=== PATIENT | female | born 1975 | race Caucasian/White ===

== ENCOUNTER 2019-12-11 10:37 | Emergency (ER) | payer OTHER, SELFPAY ==
[2019-12-11] MEDS: TETANUS,DIPHTHERIA,AC PERTUSSIS ADULT 0.5 ML (ADACEL) IM (11:10)
[2019-12-11 11:13] VITALS: BP 118/75; PULSE 83; RESP 17; TEMP 36.6; O2SAT 97
--- NOTE | 2019-12-11 11:57 | ED.GENADULT ---
HPI - General Adult General Chief complaint: Wound/Laceration Stated complaint: Cut finger on meat cutter at work History of Present Illness HPI narrative: Karie presented to clinic with a laceration her 4th digit her left hand. She coded on a meat slice her at work just before coming in. She is concerned about healing because she is a diabetic. She sustained no other injuries other than the laceration Bleeding stopped with direct pressure. Related Data Home Medications Medication Instructions Recorded Confirmed atenolol 50 mg PO DAILY 09/20/19 09/20/19 atorvastatin 40 mg PO DAILY 09/20/19 09/20/19 diazepam 5 mg PO DAILY PRN 09/20/19 09/20/19 fenofibrate nanocrystallized 145 mg PO DAILY 09/20/19 09/20/19 gabapentin 300 mg PO BID 09/20/19 09/20/19 insulin glargine [Basaglar KwikPen 25 unit SUBCUT QAM 09/20/19 09/20/19 U-100 Insulin] insulin glargine [Basaglar KwikPen 55 unit SUBCUT HS 09/20/19 09/20/19 U-100 Insulin] insulin glulisine U-100 [Apidra 10 - 30 sliding scale dose SUBCUT 09/20/19 09/20/19 U-100 Insulin] [facility] losartan 100 mg PO DAILY 09/20/19 09/20/19 metformin 500 mg PO BID 09/20/19 09/20/19 triamterene-hydrochlorothiazid 1 tablet PO DAILY 09/20/19 09/20/19 Allergies Allergy/AdvReac Type Severity Reaction Status Date / Time tobramycin Allergy Unknown SWELLING Unverified 01/09/09 13:53 FROM EYE DROPS sulfamethoxazole Allergy Unknown Verified 09/20/19 18:27 [From Bactrim] trimethoprim [From Bactrim] Allergy Unknown Verified 09/20/19 18:27 Review of Systems Constitutional: Constitutional: Reports as per HPI Eyes: Eyes: Reports as per HPI Cardiovascular: Cardiovascular: Reports as per HPI Respiratory: Respiratory: Reports as per HPI Gastrointestinal: Gastrointestinal: Reports as per HPI Genitourinary: Genitourinary: Reports no additional female genitourinary complaints Musculoskeletal: Musculoskeletal: Reports no additional musculoskeletal complaints Integumentary/Breasts: Skin/Breast: Reports as per HPI Neurologic: Reports system reviewed and no additional complaints, except as documented Psychiatric: Psychiatric: Reports no additional psychiatric complaints Endocrine: Endocrine: Reports no additional endocrine complaints Hematologic/Lymphatic: Hematologic/Lymphatic: Reports no additional hematologic/lymphatic complaints Allergic/Immunologic: Allergic/Immunologic: Reports no additional allergic/immunologic complaints [facility] Past Medical History Medical History Diabetes mellitus Diabetic neuropathy associated with diabetes mellitus due to underlying condition Hypertension Exam Const: General: no acute distress and alert Orientation/consciousness: patient oriented x3 Limitations: No altered mental status HENMT: Other: Normocephalic, atraumatic Eyes: Conjunctivae: conjunctivae normal Pupils: Equal, round and reactive pupils present Neck: Neck: normal visual inspection Resp: Effort & Inspection: normal respiratory effort, not labored, no retractions and not tachypneic Cardio: Rate: regular rate Skin: General skin exam: normal color Wounds: wounds noted Other: 1 mm deep and 1 cm long laceration on the lateral side of the distal tip of her 4th digit of left hand Neuro: General: patient oriented x3 and moves all extremities Extrem: General: normal to inspection Psych: Mental Status: mental status grossly normal Course Course Emergency Course: Karie was seen and evaluated. Her wound was evaluated as above. she is given return precautions and discharged. Vital Signs Vital signs: Vital Signs Temperature 36.6 C 12/11/19 11:13 Pulse Rate 83 12/11/19 11:13 Respiratory Rate 17 12/11/19 11:13 Blood Pressure 118/75 12/11/19 11:13 Pulse Oximetry 97 12/11/19 11:13 Temperature 36.6 C 12/11/19 11:13 Pulse Rate 83 12/11/19 11:13 Respiratory Rate 17 12/11/19 11:13
[2019-12-11 12:03] VITALS: RESP 16
== END 2019-12-11 12:05 | disposition home or self-care (01) ==
PROVIDERS: Emergency Provider Family Medicine
DX: S61.215A Laceration without foreign body of left ring finger without damage to nail, initial encounter (principal); W45.8XXA Other foreign body or object entering through skin, initial encounter
CPT/HCPCS: 12001; 90471; 90715; 99282

== ENCOUNTER 2021-01-11 11:21 | Outpatient (CLI) | payer OTHER, SELFPAY ==
[2021-01-11 11:47] LABS: Basophils Absolute Auto 0.03 K/mm3 (0.00-0.10); Basophils Percent Auto 0.5 % (0.0-1.0); Eosinophils Absolute Auto 0.08 K/mm3 (0.02-0.50); Eosinophils Percent Auto 1.4 % (1.0-6.0); Hematocrit 42.8 % (35.0-49.0); Hemoglobin 13.7 g/dL (12.0-15.0); Immature Granulocyte Absolute 0.01 K/mm3 (0.00-0.00); Immature Granulocyte Percent A 0.2 % (0.0-0.0); Lymphocytes Absolute Auto 1.78 K/mm3 (1.10-4.50); Lymphocytes Percent Auto 31.7 % (18.0-42.0); Mean Corpuscular Hemoglobin 29.5 pg (27.0-31.0); Mean Corpuscular Volume 92.2 fL (78.0-102.0); Mean Platelet Volume 12.3 fl (9.2-11.8); Monocytes Absolute Auto 0.29 K/mm3 (0.10-0.90); Monocytes Percent Auto 5.2 % (2.0-11.0); Neutrophils Absolute Auto 3.4 K/mm3 (1.7-7.2); Platelet Count Result 187 K/mm3 (150-420); Red Blood Count 4.64 M/mm3 (4.20-5.40); Red Cell Distribution Width 12.8 % (11.6-14.4); White Blood Count 5.6 K/mm3 (4.8-10.8)
[2021-01-11 11:56] LABS: Hemoglobin A1C 9.6 % (<5.7)
[2021-01-11 12:29] LABS: Alanine Aminotransferase 97 U/L (14-59); Albumin Level 3.8 g/dL (3.4-5.0); Alkaline Phosphatase 73 U/L (46-116); Anion Gap 12 mmol/L (8-16); Aspartate Amino Transferase 63 U/L (15-37); Bilirubin,Total 0.5 mg/dL (0.00-1.00); Blood Urea Nitrogen 22 mg/dL (7-18); Calcium 9.2 mg/dL (8.5-10.1); Carbon Dioxide 23 mmol/L (21-32); Chloride 101 mmol/L (98-108); Cholesterol 99 mg/dL (0-200); Creatine Kinase 79 U/L (26-192); Estimated Glomerular Filt Rate 45; Glucose 189 mg/dL (70-99); HDL Direct 19 mg/dL (40-60); LDL Cholesterol Calculated 41 mg/dL (<130); Magnesium 1.3 mg/dL (1.8-2.4); Osmolality Calculated 290 mOsm/kg (285-295); Potassium 4.2 mmol/L (3.5-5.1); Sodium 136 mmol/L (136-145); Total Protein 7.3 g/dL (6.4-8.2); Triglycerides 195 mg/dL (0-150)
[2021-01-14 19:19] LABS: Vitamin D 25 Hydroxy 17 ng/mL (30-100)
== END 2021-01-11 11:22 | disposition home or self-care (01) ==
LOC: CHSLAB 11:32
DX: E11.8 Type 2 diabetes mellitus with unspecified complications (principal); Z79.4 Long term (current) use of insulin; R79.0 Abnormal level of blood mineral; E55.9 Vitamin D deficiency, unspecified; I10 Essential (primary) hypertension
CPT/HCPCS: 36415; 80053; 80061; 82306; 82550; 83036; 83735; 85025

== ENCOUNTER 2021-02-27 10:35 | Outpatient (CLI) | payer OTHER, SELFPAY ==
[2021-02-27 12:09] LABS: SARS-CoV-2 RNA PCR Negative (Negative)
== END 2021-02-27 10:36 | disposition home or self-care (01) ==
LOC: CHSLAB 10:40
DX: R05 Cough (principal)
CPT/HCPCS: C9803; U0003; U0005

== ENCOUNTER 2021-08-29 10:22 | Outpatient (CLI) | payer OTHER, SELFPAY ==
[2021-08-29 10:36] LABS: Basophils Absolute Auto 0.06 K/mm3 (0.00-0.10); Basophils Percent Auto 1.1 % (0.0-1.0); Eosinophils Absolute Auto 0.13 K/mm3 (0.02-0.50); Eosinophils Percent Auto 2.4 % (1.0-6.0); Hematocrit 41.8 % (35.0-49.0); Hemoglobin 13.8 g/dL (12.0-15.0); Immature Granulocyte Absolute 0.02 K/mm3 (0.00-0.00); Immature Granulocyte Percent A 0.4 % (0.0-0.0); Lymphocytes Absolute Auto 1.58 K/mm3 (1.10-4.50); Lymphocytes Percent Auto 29.4 % (18.0-42.0); Mean Corpuscular Hemoglobin 30.5 pg (27.0-31.0); Mean Corpuscular Volume 92.3 fL (78.0-102.0); Mean Platelet Volume 12.6 fl (9.2-11.8); Monocytes Absolute Auto 0.39 K/mm3 (0.10-0.90); Monocytes Percent Auto 7.2 % (2.0-11.0); Neutrophils Absolute Auto 3.2 K/mm3 (1.7-7.2); Neutrophils Percent Auto 59.5 % (50.0-70.0); Platelet Count Result 158 K/mm3 (150-420); Red Blood Count 4.53 M/mm3 (4.20-5.40); Red Cell Distribution Width 12.6 % (11.6-14.4); White Blood Count 5.4 K/mm3 (4.8-10.8)
[2021-08-29 11:01] LABS: Hemoglobin A1C 8.4 % (<5.7)
[2021-08-29 11:25] LABS: Alanine Aminotransferase 79 U/L (14-59); Albumin Level 3.6 g/dL (3.4-5.0); Alkaline Phosphatase 68 U/L (46-116); Anion Gap 12 mmol/L (8-16); Aspartate Amino Transferase 49 U/L (15-37); Bilirubin,Total 0.3 mg/dL (0.00-1.00); Blood Urea Nitrogen 23 mg/dL (7-18); Calcium 8.8 mg/dL (8.5-10.1); Carbon Dioxide 23 mmol/L (21-32); Chloride 104 mmol/L (98-108); Cholesterol 102 mg/dL (0-200); Estimated Glomerular Filt Rate 58; Glucose 183 mg/dL (70-99); HDL Direct 17 mg/dL (40-60); LDL Cholesterol Calculated 49 mg/dL (<130); Magnesium 1.5 mg/dL (1.8-2.4); Osmolality Calculated 296 mOsm/kg (285-295); Potassium 4.3 mmol/L (3.5-5.1); Sodium 139 mmol/L (136-145); Total Protein 6.9 g/dL (6.4-8.2); Triglycerides 182 mg/dL (0-150)
[2021-09-02 11:22] LABS: Vitamin D 25 Hydroxy 14 ng/mL (30-100)
== END 2021-08-29 10:23 | disposition home or self-care (01) ==
LOC: CHSLAB 10:25
PROVIDERS: PCP Physician Assistant; Visit Provider Physician Assistant
DX: E55.9 Vitamin D deficiency, unspecified (principal); R79.0 Abnormal level of blood mineral; E11.8 Type 2 diabetes mellitus with unspecified complications; Z79.4 Long term (current) use of insulin; E78.5 Hyperlipidemia, unspecified
CPT/HCPCS: 36415; 80053; 80061; 82306; 83036; 83735; 85025

== ENCOUNTER 2022-05-24 17:28 | Emergency (ER) | payer OTHER, SELFPAY ==
[2022-05-24 17:30] VITALS: PULSE 91; RESP 20; TEMP 36.4; O2SAT 94
--- NOTE | 2022-05-24 17:42 | ED.GENADULT ---
HPI - General Adult General Chief complaint: Ear Stated complaint: sinus inf/ear pain Time Seen by Provider: 05/24/22 17:37 History of Present Illness HPI narrative: Karie is a 47F with a PMH of DM, HTN and previous sinus infections that presented to the ED with a week and a half of frontal sinus pain, congestion, runny nose and pain in her right ear. There were no fevers, chills, N/V, cough or SOB. It feels like previous sinus infections. Related Data Home Medications Medication Instructions Recorded Confirmed atenolol 50 mg tablet 50 mg PO DAILY 09/20/19 05/24/22 atorvastatin 40 mg tablet 40 mg PO DAILY 09/20/19 05/24/22 diazepam 5 mg tablet 5 mg PO DAILY PRN Anxiety 09/20/19 05/24/22 fenofibrate nanocrystallized 145 145 mg PO DAILY 09/20/19 05/24/22 mg tablet gabapentin 300 mg capsule 300 mg PO BID 09/20/19 05/24/22 insulin glargine 100 unit/mL (3 35 unit subcut QAM 09/20/19 05/24/22 mL) subcutaneous pen (Basaglar KwikPen U-100 Insulin) insulin glargine 100 unit/mL (3 40 unit subcut HS 09/20/19 05/24/22 mL) subcutaneous pen (Basaglar KwikPen U-100 Insulin) insulin glulisine U-100 100 10 - 30 sliding scale dose subcut 09/20/19 05/24/22 unit/mL subcutaneous solution [facility] (Apidra U-100 Insulin) losartan 100 mg tablet 100 mg PO DAILY 09/20/19 05/24/22 triamterene 75 1 tablet PO DAILY 09/20/19 05/24/22 mg-hydrochlorothiazide 50 mg tablet Allergies Allergy/AdvReac Type Severity Reaction Status Date / Time tobramycin Allergy Unknown SWELLING Unverified 01/09/09 13:53 FROM EYE DROPS sulfamethoxazole Allergy Unknown Verified 09/20/19 18:27 [From Bactrim] trimethoprim [From Bactrim] Allergy Unknown Verified 09/20/19 18:27 Review of Systems Review of Systems: All systems reviewed & are unremarkable except as noted in HPI and below PMFSH Past Medical History Medical History Diabetes mellitus Diabetic neuropathy associated with diabetes mellitus due to underlying condition Hypertension Exam Const: General: healthy appearing and no acute distress Nutritional Appearance: well nourished Orientation/consciousness: patient oriented x3 HENMT: Head: normal to inspection Ears: external ears normal Other: Erythematous nasal turbinates, Right frontal sinus was TTP, Right submandibular lymphadenopathy Eyes: Conjunctivae: conjunctivae normal Pupils: Equal, round and reactive pupils present EOM: EOMs intact bilaterally Neck: Neck: normal visual inspection Chest: Chest palpation & inspection: normal inspection of the chest Resp: Effort & Inspection: normal respiratory effort Auscultation: clear to auscultation bilaterally Cardio: Rate: regular rate Rhythm: regular rhythm Skin: General skin exam: normal color Neuro: General: patient oriented x3 Extrem: General: normal to inspection Psych: Mental Status: mental status grossly normal Course Course Emergency Course: Given dose of Augmentin Vital Signs Vital signs: Vital Signs Temperature 97.6 F 05/24/22 17:30 Pulse Rate 91 05/24/22 17:30 Respiratory Rate 20 05/24/22 17:30 Pulse Oximetry 94 05/24/22 17:30 Oxygen Delivery Room Air 05/24/22 17:30 Temperature 97.6 F 05/24/22 17:52 Pulse Rate 91 05/24/22 17:52 Respiratory Rate 18 05/24/22 17:52 Blood Pressure 138/78 05/24/22 17:52 Pulse Oximetry 94 05/24/22 17:52 Oxygen Delivery Room Air 05/24/22 17:52 Medical Decision Making Vital Signs Vital Signs: Vital Signs Temperature 97.6 F 05/24/22 17:30 Pulse Rate 91 05/24/22 17:30 Respiratory Rate 20 05/24/22 17:30 Pulse Oximetry 94 05/24/22 17:30 Oxygen Delivery Room Air 05/24/22 17:30 Temperature 97.6 F 05/24/22 17:52 Pulse Rate 91 05/24/22 17:52 Respiratory Rate 18 05/24/22 17:52 Blood Pressure 138/78 05/24/22 17:52 Pulse Oximetry 94 05/24/22 17:52 Oxygen Delivery Room Air
[2022-05-24] MEDS: AMOXICILLIN/CLAVULANATE K 875-125 MG TAB 1 TABLET PO (17:50)
[2022-05-24 17:52] VITALS: BP 138/78; PULSE 91; RESP 18; TEMP 36.4; O2SAT 94
== END 2022-05-24 17:57 | disposition home or self-care (01) ==
PROVIDERS: Emergency Provider Family Medicine; PCP Physician Assistant
DX: J32.8 Other chronic sinusitis (principal)
CPT/HCPCS: 99283; A9270

== ENCOUNTER 2024-07-11 08:28 | Outpatient (RCR) | payer OTHER, SELFPAY ==
--- NOTE | 2024-07-11 16:10 | PTOPEVAL1 ---
Assessment and note entered by Codi Rivero DPT Evaluation Information Assessment Status Evaluation Diagnosis low back pain ICD-10 Condition Codes (PT) Pain in low back M54.50 Onset 07/06/24 Subjective Information patient reports that she has low back pain that comes and goes. she reports pain is on both side but does not radiate to the LE's. she reports pain is a burning. 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 she reports that heat helps to decrease pain. Reported Pain Level Pain Score 3: Self Report Plan of Care Interventions Electrical Stimulation,Gait Training,Hot Pack/Cold Pack,Manual Therapy,Mechanical Traction,Neuro Re- education,Patient/Caregiver Educati,Therapeutic Activities,Therapeutic Exercise PT Services Indicated Yes Treatment Frequency and 2x weekly for 10 visits Duration These treatments will address the objective and functional deficits as defined above. The patient will be advanced safely and appropriately in order for the patient to progress towards his/her prior level of function. Additional exercises will be introduced and as well as a comprehensive home exercise program upon discharge, if needed, ?to ensure carryover of functional gains achieved in the clinic. This treatment plan has been reviewed and agreement upon by the patient.
--- NOTE | 2024-07-25 08:39 | PCPTNOTE ---
Patient called & cancelled scheduled appointment this date.
--- NOTE | 2024-09-04 08:56 | PCPTNOTE ---
pt no show. called pt and she is in ER. On for Wednesday
== END 2024-08-16 11:00 | disposition home or self-care (01) ==
LOC: CHSPT 08:28
PROVIDERS: Visit Provider Physician Assistant
DX: M54.50 Low back pain, unspecified (principal)
CPT/HCPCS: 97014; 97110; 97161; G0283

== ENCOUNTER 2024-09-04 07:57 | Emergency (ER) | payer OTHER, SELFPAY ==
[2024-09-04 07:57] VITALS: BP 172/78; PULSE 84; RESP 16; TEMP 36.4; O2SAT 98
--- NOTE | 2024-09-04 08:08 | ED.EYEPROB ---
HPI - Eye Problem General Chief complaint: Eye Problems Stated complaint: Eye problem Time Seen by Provider: 09/04/24 08:07 Source: patient and family Mode of arrival: ambulatory History of Present Illness HPI Narrative: 49 years old white female came to the ED by private car this morning complaining of left eye irritation, feeling like some thing in it. patient denies any outdoors activity in the last few days. Related Data Home Medications Medication Instructions Recorded Confirmed atenolol 50 mg tablet 50 mg PO DAILY 09/20/19 05/24/22 atorvastatin 40 mg tablet 40 mg PO DAILY 09/20/19 05/24/22 diazepam 5 mg tablet 5 mg PO DAILY PRN Anxiety 09/20/19 05/24/22 fenofibrate nanocrystallized 145 145 mg PO DAILY 09/20/19 05/24/22 mg tablet gabapentin 300 mg capsule 300 mg PO BID 09/20/19 05/24/22 insulin glargine 100 unit/mL (3 35 unit subcut QAM 09/20/19 05/24/22 mL) subcutaneous pen (Basaglar KwikPen U-100 Insulin) insulin glargine 100 unit/mL (3 40 unit subcut HS 09/20/19 05/24/22 mL) subcutaneous pen (Basaglar KwikPen U-100 Insulin) insulin glulisine U-100 100 10 - 30 sliding scale dose subcut 09/20/19 05/24/22 unit/mL subcutaneous solution [facility] (Apidra U-100 Insulin) losartan 100 mg tablet 100 mg PO DAILY 09/20/19 05/24/22 triamterene 75 1 tablet PO DAILY 09/20/19 05/24/22 mg-hydrochlorothiazide 50 mg tablet Allergies Allergy/AdvReac Type Severity Reaction Status Date / Time tobramycin Allergy Unknown SWELLING Unverified 01/09/09 13:53 FROM EYE DROPS sulfamethoxazole Allergy Unknown Verified 09/20/19 18:27 [From Bactrim] trimethoprim [From Bactrim] Allergy Unknown Verified 09/20/19 18:27 Review of Systems Review of Systems: All systems reviewed & are unremarkable except as noted in HPI and below PMFSH Past Medical History Medical History Diabetes mellitus Diabetic neuropathy associated with diabetes mellitus due to underlying condition Hypertension Exam Narrative: General appearance: Well-developed, well-nourished Skin: Normal color Head: Normocephalic, nontraumatic Eyes: Left conjunctival injection, no foreign body, no swelling, no discharge ENT: Oropharynx normal, ears normal, nose normal Neck: Supple, nontender Neurologic: Alert and oriented ?3, Course Vital Signs Vital signs: Vital Signs Temperature 36.4 C L 09/04/24 07:57 Pulse Rate 84 09/04/24 07:57 Respiratory Rate 16 09/04/24 07:57 Blood Pressure 172/78 H 09/04/24 07:57 Pulse Oximetry 98 09/04/24 07:57 Oxygen Delivery Room Air 09/04/24 07:57 Temperature 36.4 C L 09/04/24 07:57 Pulse Rate 84 09/04/24 07:57 Respiratory Rate 16 09/04/24 07:57 Blood Pressure 172/78 H 09/04/24 07:57 Pulse Oximetry 98 09/04/24 07:57 Oxygen Delivery Room Air 09/04/24 07:57 MDM - Eye Problem MDM Narrative Medical decision making narrative: differential diagnosis include conjunctivitis viral versus bacterial Differential Diagnosis Differential diagnosis: Likely other ( as above) Discharge Plan Discharge Clinical Impression: Conjunctiva disorder Patient Disposition: Home, Self-Care Condition: Stable Instructions: Conjunctivitis (ED) Additional Instructions: Return if symptoms are worsening , call your family physician for appointment, take Tylenol as as needed for aches and pain, continue home medications. Prescriptions: New ciprofloxacin HCl 0.3 % drops 1 drp LEFT EYE Q4H 5 Days Qty: 10 0RF Rx Instructions: administer while awake No Action atorvastatin 40 mg tablet 40 mg PO DAILY gabapentin 300 mg capsule 300 mg PO BID triamterene-hydrochlorothiazid 75-50 mg tablet 1 tablet PO DAILY losartan 100 mg tablet 100 mg PO DAILY atenolol 50 mg tablet 50 mg PO DAILY diazepam 5 mg tablet 5 mg PO DAILY PRN (Reason: Anxiety) Apidra U-100 Insulin 100 unit/mL solution 10 - 30 sliding scale dose subcut [facility] fenofibrate nanocrystallized 145 mg tablet 145 mg PO DAILY insulin glargine [Basaglar KwikPen U-100 Insulin] 100 unit/mL (3 mL) insulin pen 35 unit SUBCUT QAM insulin glargine [Basaglar KwikPen U-100 Insulin] 100 unit/mL (3 mL) insulin pen 40 unit SUBCUT HS amoxicillin-pot clavulanate 875-125 mg tablet 1 tablet PO Q12H Qty: 10 0RF Follow-up/Referrals: Getachew,CARMEL Arreguin [Primary Care Provider] - Stand Alone Forms: Work/School Release IP
[2024-09-04] MEDS: TETRACAINE HCL 0.5% OPHTH SOLN 4 ML BTL 1 DROP EACH EYE (08:25)
== END 2024-09-04 09:02 | disposition home or self-care (01) ==
PROVIDERS: Emergency Provider Emergency Medicine; PCP Physician Assistant
DX: H11.9 Unspecified disorder of conjunctiva (principal); I10 Essential (primary) hypertension; E11.9 Type 2 diabetes mellitus without complications
CPT/HCPCS: 99283

== ENCOUNTER 2025-04-27 12:36 | Outpatient (CLI) | payer OTHER, SELFPAY ==
--- OUTSIDE RECORDS SUMMARY | 2025-04-27 12:45 | XMS_ITS | Encounter Summary ---
Author Organization [facility] Address [address] [place] [address] Phone Care Team Providers Care Plaster Tender Name Role Phone Kendra Chilel Primary Care Provider + Reason for Visit * Reason Comments Medication Refill Encounter Details Date Type Department Care Team (Late st Contact Info) Description 03/07/2024 Refill [facility] Medical Group - [facility] [place] [address] [place] [address] Kendra Chilel PAC [address] [place] [address] Medication Refill Social History Tobacco Use Types Packs/Day Years Used Date Smoking Tobacco: Every Day Cigarettes 1 5 Smokeless Tobacco: Never Alcohol Use Standard Drinks/Week Comments Never 0 (1 standard drink = 0.6 oz pur e alcohol) 2 X a year AUDIT-C Answer Date Recorded Q1: How often do you have a drink containing alc ohol? Never 07/06/2020 Average Number of Drinks Not on file 020 Frequency of Binge Drinking Not on file 06/27 PHQ-2 Answer Date Recorded Total Score - Questions 1-9 0 12/2021 Education Answer Date Recorded What is the highest level of school you have completed or the highest degree you have received? Associate degree: occupational, technical, or vocational program 10/23/2022 Sexually Active Control Partners Comments Yes Male Comments No Sex and Gender Information Value Date Recorded Sex Assigned at Not on file Legal Sex Female 10:41 PM CDT Gender Identity Female 07/28/2023 10:16 AM CDT Sexual Orientation Straight 07/28/2023 10 :16 AM CDT documented as of this encounter Miscellaneous Notes * Telephone Encounter - Elana Macedo RN - 03/07/2024 9:00 AM CDT Medication failed the protocol, provider to review and approve the medication order if appropriate. Requested Prescriptions Pending Prescriptions Disp Refills Lantus SoloStar 100 UNIT/ML Solution Pen-injector [Pharmacy Med Name: LANTUS SOLOSTAR 100 UNITS/ML]15 mL 3 Sig: INJECT 25 UNITS SUBCUTANEOUSLY EVERY MORNING AND 50-55 UNITS NIGTLY CHECK BLOOD SUGAR PRIOR TOINJECTION Not Delegated - Insulin Protocol Failed - 03/07/2024 8:25 AM Failed - This refill cannot be delegated Passed - Visit with relevant provider in past 12 months or upcoming 90 days Recent Visits Date Type Provider Dept 02/14/24 Office Visit Kendra Chilel PAC [facility] 08/26/23 Office Visit Kendra Chilel PAC [facility] 08/06/23 Telemedicine Kendra Chilel PAC [facility] Showing recent visits within past 365 days and meeting all other requirements Future Appointments No visits were found meeting these conditions. Showing future appointments within next 90 days and meeting all other requirements documented in this encounter Plan of Treatment Not on file documented as of this encounter Visit Diagnoses Not on filedocumented in this encounter Additional Health Concerns Assessment Noted Time PHQ-9 Depression Total Score: 0 01/09/20 21 3:47 PM CDT documented as of this encounter Care Teams Plaster Tender Relationship Specialty Start Date End Date Kendra Chilel PAC [address] [place] [address] PCP - General Physician Steel Chipper 08/25/17 documented as of this encounter
--- OUTSIDE RECORDS SUMMARY | 2025-04-27 12:45 | XMS_ITS | Encounter Summary ---
Author Organization [facility] Address [address] [place] [address] Phone Care Team Providers Care Edge Drummer Name Role Phone Kendra Chilel Primary Care Provider + Reason for Visit * Reason Comments Medication Refill Encounter Details Date Type Department Care Team (Late st Contact Info) Description 05/24/2021 Refill [facility] - [facility] [place] [address] [place] [address] Kendra Chilel PAC [address] [place] [address] Medication Refill Social History Tobacco Use Types [...] Recorded Total Score - Questions 1-9 0 12/26 Education Answer Date Recorded What is the highest level of school you have completed or the highest degree you have received? GED or equivalent Sexually Active Control Partners Comments Yes Male Comments No Sex and Gender Information Value Date Recorded Sex Assigned at Not on file Legal Sex Female 10:41 PM CDT Gender Identity Female 07/28/2023 10:16 AM CDT Sexual Orientation Straight 07/28/2023 10 :16 AM CDT COVID-19 Exposure Response Date Recorded In the last month, have you been in contact with someone who was confirmed or suspected to have Coronavirus / COVID-19? No / Unsure 05/19/2021 2:25 PM CDT documented as of this encounter Miscellaneous Notes * Telephone Encounter - Elana Macedo RN - 05/26/2021 2:49 PM CDT [place] 04/25/21 Medication failed the protocol, provider to review and approve the medication order if appropriate. Requested Prescriptions Pending Prescriptions Disp Refills diazePAM (VALIUM) 5 MG Tablet [Pharmacy Med Name: DIAZEPAM 5 MG TABLET] 45 Tablet Sig: TAKE ONE TABLET BY MOUTH EVERY EIGHT HOURS NEEDED There is no refill protocol information for this order tiZANidine (ZANAFLEX) 4 MG Tablet [Pharmacy Med Name: TIZANIDINE HCL 4 MG TABLET] 60 Tablet 0 Sig: TAKE ONE TABLET BY MOUTH EVERY EIGHT HOURS NEEDED Not Delegated - Muscle Relaxants Protocol Failed - 05/26/2021 2:49 PM Failed - This refill cannot be delegated Passed - Visit with relevant provider in past 12 months or upcoming 90 days Recent Visits Date Type Provider Dept 05/20/21 Kendra Vernon PAC [facility] 03/04/21 Telemedicine Kendra Chilel PAC [facility] 01/29/21 Office Visit Kendra Chilel PAC [facility] 01/15/21 Office Visit Kendra Chilel PAC [facility] 01/08/21 Office Visit Kendra Chilel PAC [facility] 10/28/20 Telemedicine Kendra Chilel PAC [facility] 08/01/20 Office Visit Kendra Chilel PAC [facility] 07/15/20 Office Visit Kendra Chilel, PAC [facility] Showing recent visits within past 365 days and meeting all other requirements Future Appointments No visits were found meeting these conditions. Showing future appointments within next 90 days and meeting all other requirements Passed - ALT less than 90 and AST less than 55 on record in past 12 months SGOT (AST) Date Value Ref Range Status 01/29/2021 42 (H) <=32 U/L Final SGPT (ALT) Date Value Ref Range Status 01/29/2021 59 (H) <=41 U/L Final documented in this encounter Plan of Treatment Not on file documented as of this encounter Visit Diagnoses Diagnosis Anxiety Anxiety state, unspecified documented in this encounter Additional Health Concerns Infection Onset Date Last Indicated Resolved Time COVID - 19 09/30/2021 09/30/2021 10/20/2021 12:1 6 AM BELLMAN Assessment Noted Time PHQ-9 Depression Total Score: 0 01/09/20 21 3:47 PM CDT documented as of this encounter Care Teams Edge Drummer Relationship Specialty Start Date End Date Kendra Chilel PAC [address] [place] [address] PCP - General Physician Trucker Hand 08/25/17 documented as of this encounter
--- OUTSIDE RECORDS SUMMARY | 2025-04-27 12:45 | XMS_ITS | Encounter Summary ---
Author Organization [facility] Address [address] [place] [address] Phone Care Team Providers Care Nurse Emergency Name Role Phone Kendra Chilel Primary Care Provider + Reason for Visit * Reason Comments Medication Refill Encounter Details Date Type Department Care Team ([facility] Contact Info) Description 12/13/2024 Refill [facility] [place] [address] [place] [address] Kendra Chilel PAC [address] [place] [address] Medication Refill Social History Tobacco Use Types Packs/Day Years Used Date Smoking Tobacco: Every Day Cigarettes 1 5 Smokeless Tobacco: Never Alcohol Use Standard Drinks/Week Comments Never 0 (1 standard drink = 0.6 oz pur e alcohol) 2 X a year [facility] Utilities Answer Date Recorded In the past 12 months has [employer], gas, oil, or water [employer] threatened to shut off services in your home? No 12/12/2024 Social Connection and Isolation Panel Answer Date Recorded In a typical week, how many times do you talk on the phone with family, friends, or neighbors? Patient declined 12/13/19 25 How often do you get togethe r with friends or relatives? Never 12/12/2024 How often do you attend [facility] or yazidi services? Never 12/12/2024 Do you belong to any clubs o r organizations such as yazdanism groups, unions, fraternal or athletic groups, or school groups? No 12/12/2024 How often do you attend meet ings of the clubs or organizations you belong to? Never 12/12/2024 Are you , , di vorced, , never , or living with a partner? Living with partner 12/12/2024 AUDIT-C Answer Date Recorded Q1: How often do you have a drink containing alcohol? Never 12/12/2024 Q2: How many drinks containi ng alcohol do you have on a typical day when you are drinking? Patient does not drink Q3: How often do you have si x or more drinks on one occasion? Never 12/12/2024 Overall Financial Resource Strain (CARDIA) Answe r Date Recorded How hard is it for you to pa y for the very basics like food, housing, medical care, and heating? Not hard at all 12/12/2024 PHQ-2 Answer Date Recorded Total Score - Questions 1-9 0 11/26 [facility] - Occupational Stress Questionnaire Answer Date Recorded Do you feel stress - tense, restless, nervous, or anxious, or unable to sleep at night because your mind is troubled all the time - these days? Rather much 12/12/2024 Exercise Vital Sign Answer Date Recorde d On average, how many days pe r week do you engage in moderate to strenuous exercise (like a brisk walk)? 0 days 12/12/2024 On average, how many minutes do you engage in exercise at this level? 0 min 12/12/2024 Hunger Vital Sign Answer Date Recorded Within the past 12 months, y ou worried that your food would run out before you got the money to buy more. Never true 12/13/19 25 Within the past 12 months, t he food you bought just didn't last and you didn't have money to get more. Never true 12/12/2024 PRAPARE - Transportation Answer Date Re corded In the past 12 months, has l ack of transportation kept you from medical appointments or from getting medications? No 11/25 In the past 12 months, has l ack of transportation kept you from meetings, work, or from getting things needed for daily living? No 12/12/2024 Housing Stability Vital Sign Answer Mendoza e Recorded In the last 12 months, was t here a time when you were not able to pay the mortgage or rent on time? No 12/12/2024 In the past 12 months, how m any times have you moved where you were living? 1 12/12/2024 At any time in the past 12 m [facility], were you homeless or living in a jail (including now)? No 12/12/2024 Education Answer Date Recorded What is the [...] AM CDT documented as of this encounter Functional Status * Question Answer Date of Assessment Author Little interest or pleasure in doing things Not at all 12/14/2024 10:22 AM CDT Faraz December Feeling down, depressed, or hopeless Not at all 11/26 10:22 AM CDT FarazDecember * Over the past 2 weeks, how often have you been bothered by any of the following problems? Question Answer Date of Assessment Author Patient Health Questionnaire-2 Score 0 11/26 10:22 AM CDT December documented as of this encounter Miscellaneous Notes * Telephone Encounter - Elana Macedo RN - 12/14/2024 11:39 AM CDT Images from the original note were not included. Semaglutide Dispensed Days Supply Quantity Provider Pharmacy RYBELSUS 7MG TAB 12/13/2024 30 30 Tablet Fritcher, Jana, PAC [facility] RYBELSUS 7MG TAB 11/15/2024 30 30 Tablet Fritcher, Jana, PAC [facility] RYBELSUS 7MG TAB 10/13/2024 30 30 Tablet Fritcher, Jana, PAC [facility] * Telephone Encounter - Elana Macedo RN - 12/13/2024 3:[address]pt 12/14/24 with PCP documented in this encounter Plan of Treatment Not on file documented as of this encounter Visit Diagnoses Diagnosis Type 2 diabetes mellitus with complication, with long-term current use of insulin (HCC) documented in this encounter Additional Health Concerns Assessment Noted Time PHQ-9 Depression Total Score: 0 01/09/20 21 3:47 PM CDT documented as of this encounter Care Teams Nurse Emergency Relationship Specialty Start Date End Date Kendra Chilel PAC [address] [place] [address] PCP - General Physician Underwriter 08/25/17 documented as of this encounter
--- OUTSIDE RECORDS SUMMARY | 2025-04-27 12:45 | XMS_ITS | Encounter Summary ---
Author Organization [facility] Address [address] [place] [address] Phone Care Team Providers Care Neck Band Setter Name Role Phone Kendra Chilel Primary Care Provider + Reason for Visit * Reason Comments Medication Refill Encounter Details Date Type Department Care Team (Late st Contact Info) Description 05/25/2020 Refill [facility] Medical Group - Family [facility] [address] [place] [address] Kendra Chilel PAC [address] [place] [address] Medication Refill Social History Tobacco Use Types Packs/Day Years Used Date Smoking Tobacco: Every Day Cigarettes 1 5 Smokeless Tobacco: Never Alcohol Use Standard Drinks/Week Comments No 0 (1 standard drink = 0.6 oz pur e alcohol) 2 X a year PHQ-2 Answer Date Recorded PHQ-2 Score 0 06/06/2019 Sexually Active Control Partners Comments Yes Male Comments No Sex and Gender Information Value Date Recorded Sex Assigned at Not on file Legal Sex Female 10:41 PM CDT Gender Identity Female 07/28/2023 10:16 AM CDT Sexual Orientation Straight 07/28/2023 10 :16 AM CDT documented as of this encounter Miscellaneous Notes * Telephone Encounter - Radha Gupta RN - 05/29/2020 10:08 AM CDT DUPLICATE Pharmacy advised documented in this encounter Plan of Treatment Not on file documented as of this encounter Visit Diagnoses Not on filedocumented in this encounter Additional Health Concerns Infection Onset Date Last Indicated Resolved Time COVID - 19 07/06/2020 07/06/2020 07/08/2020 11:2 3 AM CDT COVID - 19 10/29/2020 10/29/2020 11/01/2020 8:13 AM SITE SAFETY COORDINATOR COVID - 19 01/08/2021 01/09/2021 01/11/2021 5:59 AM CDT COVID - 19 02/25/2021 02/28/2021 03/17/2021 12:1 6 AM CDT COVID - 19 09/30/2021 09/30/2021 10/20/2021 12:1 6 AM SITE SAFETY COORDINATOR Assessment Noted Time PHQ-9 Depression Total Score: 0 11/14/19 19 11:16 AM SITE SAFETY COORDINATOR documented as of this encounter Care Teams Neck Band Setter Relationship Specialty Start Date End Date Kendra Chilel PAC [address] [place] [address] PCP - General Physician Body Die Maker 08/25/17 documented as of this encounter
--- OUTSIDE RECORDS SUMMARY | 2025-04-27 12:45 | XMS_ITS | Encounter Summary ---
Author Organization [facility] Address [address] [place] [address] Phone Care Team Providers Care Blind Teacher Name Role Phone Kendra Chilel Primary Care Provider + Reason for Visit * Reason Comments Medication Refill Encounter Details Date Type Department Care Team (Late st Contact Info) Description 05/08/2023 [facility]ill [facility] - [facility] [place] [address] [place] [address] Kendra Chilel PAC [address] [place] [address] Medication Refill Social History Tobacco Use Types [...] encounter Miscellaneous Notes * Telephone Encounter - Mona Morrison RN - 05/11/2023 3:33 PM CDT Sent to pharmacy 05/11/23 * Telephone Encounter - Barbie Meade RN - 05/11/2023 7:45 AM CDT Patient is calling and states she is out of insulin and needs the medication today. She is out of medication and the pharmacy states that she has no refills. She has been without medication all weekend. Denies symptoms at this time Please advise * Telephone Encounter - Elana Macedo RN - 05/10/2023 8:49 AM CDT Images from the original note were not included. Insulin Glargine Dispensed Days Supply Quantity Provider Pharmacy LANTUS SOLO 100U/ML PEN 04/12/2023 18 15 mL Kendra Chilel, PAC [facility] LANTUS SOLO 100U/ML PEN 03/15/2023 18 15 mL Kendra Chilel, PAC [facility] documented in this encounter Plan of Treatment Not on file documented as of this encounter Visit Diagnoses Not on filedocumented in this encounter Additional Health Concerns Assessment Noted Time PHQ-9 Depression Total Score: 0 01/09/20 21 3:47 PM CDT documented as of this encounter Care Teams Blind Teacher Relationship Specialty Start Date End Date Kendra Chilel PAC [address] [place] [address] PCP - General Physician Teacher Music 08/25/17 documented as of this encounter
--- OUTSIDE RECORDS SUMMARY | 2025-04-27 12:45 | XMS_ITS | Encounter Summary ---
Author Organization [facility] Address [address] [place] [address] Phone Care Team Providers Care Clearing Distribution Clerk Name Role Phone Kendra Chilel Primary Care Provider + Reason for Visit * Reason Comments Medication Refill Encounter Details Date Type Department Care Team (Late st Contact Info) Description 01/10/2024 Refill [facility] - [facility] [place] [address] [place] [address] Kendra Chilel PAC [address] [place] [address] Medication Refill Social History Tobacco Use Types [...] Telephone Encounter - Elana Macedo RN - 01/10/2024 3:53 PM CDT Images from the original note were not included. Losartan Potassium Dispensed Days Supply Quantity Provider Pharmacy LOSARTAN 100MG TAB 01/10/2024 90 90 Tablet Kendra Chilel PAC [facility] LOSARTAN 100MG TAB 10/12/2023 90 90 Tablet Kendra Chilel [facility] documented in this encounter Plan of Treatment Not on file documented as of this encounter Visit Diagnoses Not on filedocumented in this encounter Additional Health Concerns Assessment Noted Time PHQ-9 Depression Total Score: 0 01/09/20 21 3:47 PM CDT documented as of this encounter Care Teams Clearing Distribution Clerk Relationship Specialty Start Date End Date Kendra Chilel PAC [address] [place] [address] PCP - General Physician Metal Cut Off Saw Tender 08/25/17 documented as of this encounter
--- OUTSIDE RECORDS SUMMARY | 2025-04-27 12:45 | XMS_ITS | Encounter Summary ---
Author Organization [facility] Address [address] [place] [address] Phone Care Team Providers Care Geochemical Laboratory Technician Name Role Phone Kendra Chilel Primary Care Provider + Reason for Visit * Reason Comments Medication Refill Encounter Details Date Type Department Care Team ([facility] st Contact Info) Description 08/15/2023 Refill [facility] Medical Group - [facility] [address] [place] [address] Kendra Chilel PAC [address] [place] [address] Medication Refill Social History Tobacco Use Types [...] Exposure Response Date Recorded In the last 10 days, have staci u been in contact with someone who was confirmed or suspected to have Coronavirus/COVID-19? No / Unsure 08/02/2023 2:44 PM ASSISTANT PROFESSOR OF ART documented as of this encounter Miscellaneous Notes * Telephone Encounter - Elana Macedo RN - 08/16/2023 9:42 AM CST Refill remaining on file according to last Rx and refill history. STANT PROFESSOR OF ART * Telephone Encounter - Elana Macedo RN - 08/16/2023 9:40 AM CST Images from the original note were not included. tiZANidine HCl Dispensed Days Supply Quantity Provider Pharmacy TIZANIDINE 4MG TAB 08/15/2023 15 60 Tablet Kendra Chilel PAC [facility] TIZANIDINE 4MG TAB 07/13/2023 15 60 Tablet Kendra Chilel PAC [facility] STANT PROFESSOR OF ART documented in this encounter Plan of Treatment Not on file documented as of this encounter Visit Diagnoses Not on filedocumented in this encounter Additional Health Concerns Assessment Noted Time PHQ-9 Depression Total Score: 0 01/09/20 21 3:47 PM CDT documented as of this encounter Care Teams Geochemical Laboratory Technician Relationship Specialty Start Date End Date Kendra Chilel PAC [address] [place] [address] PCP - General Physician Travel Administrator 08/25/17 documented as of this encounter
--- OUTSIDE RECORDS SUMMARY | 2025-04-27 12:45 | XMS_ITS | Encounter Summary ---
Author Organization [facility] Address [address] [place] [address] Phone Care Team Providers Care Child Care Leader Name Role Phone Kendra Chilel Primary Care Provider + Reason for Visit * Reason Comments Medication Refill Encounter Details Date Type Department Care Team ([facility] st Contact Info) Description 10/17/2022 Refill [facility] Medical Group - [facility] [address] [place] [address] Kendra Chilel PAC [address] [place] [address] Medication Refill Social History Tobacco Use Types [...] degree you have received? GED or equivalent 09/2021 Sexually Active Control Partners Comments Yes Male Comments No Sex and Gender Information Value Date Recorded Sex Assigned at Not on file Legal Sex Female 10:41 PM CDT Gender Identity Female 07/28/2023 10:16 AM CDT Sexual Orientation Straight 07/28/2023 10 :16 AM CDT documented as of this encounter Miscellaneous Notes * Telephone Encounter - Elana Macedo RN - 10/19/2022 9:05 AM CST Signed 4 days ago (10/15/2022): diazePAM (VALIUM) 5 MG Tablet Sig: Take 1 Tablet by mouth every 8 hours as needed for Anxiety. Disp: 45 Tablet ? Refills: 0 Signed by: Kendra Chilel [facility] documented in this encounter Plan of Treatment Not on file documented as of this encounter Visit Diagnoses Diagnosis Anxiety Anxiety state, unspecified documented in this encounter Additional Health Concerns Assessment Noted Time PHQ-9 Depression Total Score: 0 01/09/20 21 3:47 PM CDT documented as of this encounter Care Teams Child Care Leader Relationship Specialty Start Date End Date Kendra Chilel PAC [address] [place] [address] PCP - General Physician Back Wedger 08/25/17 documented as of this encounter
--- OUTSIDE RECORDS SUMMARY | 2025-04-27 12:45 | XMS_ITS | Encounter Summary ---
Author Organization [facility] Address [address] [place] [address] Phone Care Team Providers Care Plant Etiologist Name Role Phone Kendra Chilel Primary Care Provider + Reason for Visit * Reason Comments Medication Refill Encounter Details Date Type Department Care Team (Late st Contact Info) Description 01/13/2023 Refill [facility] Medical Group - [facility] [place] [address] [place] [address] Kendra Chilel PAC [address] [place] [address] Medication Refill Social History Tobacco Use Types [...] encounter Miscellaneous Notes * Telephone Encounter - Tiffanie Monroe RN - 01/13/2023 10:59 AM CDT Refill requested too soon. documented in this encounter Plan of Treatment Not on file documented as of this encounter Visit Diagnoses Not on filedocumented in this encounter Additional Health Concerns Assessment Noted Time PHQ-9 Depression Total Score: 0 01/09/20 21 3:47 PM CDT documented as of this encounter Care Teams Plant Etiologist Relationship Specialty Start Date End Date Kendra Chilel PAC [address] [place] [address] PCP - General Physician Communications Senior Associate 08/25/17 documented as of this encounter
--- OUTSIDE RECORDS SUMMARY | 2025-04-27 12:45 | XMS_ITS | Encounter Summary ---
Author Organization [facility] Address [address] [place] [address] Phone Care Team Providers Care Forming Mill Operator Name Role Phone Kendra Chilel Primary Care Provider + Reason for Visit * Reason Onset Date Comments Medication Refill 07/24/2020 atenolol & rajwinder zepam Encounter Details Date Type Department Care Team (Late st Contact Info) Description 07/16/2020 Refill [facility] Medical Group - Family [facility] [address] [place] [address] Kendra Chilel PAC [address] [place] [address] Medication Refill (atenolol & diazepam) Social History Tobacco Use Types Packs/Day Years [...] on file 06/27 PHQ-2 Answer Date Recorded PHQ-2 Score 0 06/06/2019 Education Answer Date Recorded What is the [...] have Coronavirus / COVID-19? No / Unsure 07/15/2020 10:34 AM CDT documented as of this encounter Miscellaneous Notes * Telephone Encounter - Kendra Chilel PAC - 07/24/2020 8:52 AM CDT The diazepam was refilled 1 week ago * Telephone Encounter - Inna Hui RN - 07/24/2020 8:38 AM CDT FYI: Refused request for atenolol d/t requesting too soon. According to chart this medication was ordered at this same pharmacy requesting renewal for: atenolol (TENORMIN) 50 MG Tablet 90 Tab 3 03/14/2020 Sig: TAKE ONE TABLET BY MOUTH DAILY Diazepam: Routing to provider per protocol as medication(s) can not be signed by a nurse for approval. Rx post dated. Medication Dispense History (from 03/26/2020 to 07/23/2020) diazePAM Dispensed Written Strength Quantity Refills Days Supply Provider Pharmacy DIAZEPAM 07/12/2020 07/12/2020 5 MG 45 0 15 , [facility] DIAZEPAM 06/20/2020 06/20/2020 5 MG 45 0 15 , [facility] DIAZEPAM 05/17/2020 05/17/2020 5 MG 45 0 15 , MIRANDA WALTON (DNP, GAS BRAZER-C) [facility] DIAZEPAM 04/12/2020 04/12/2020 5 MG 45 0 15 , [facility] External Sources Source Last Checked for Updates Status [facility] 07/23/2020 1:10 PM History Response Filed documented in this encounter Plan of Treatment Not on file documented as of this encounter Visit Diagnoses Diagnosis Anxiety Anxiety state, unspecified documented in this encounter Additional Health Concerns Infection Onset Date Last Indicated Resolved Time COVID - 19 10/29/2020 10/29/2020 11/01/2020 8:13 AM POLYSOMNOGRAPHIC TECH COVID - 19 01/08/2021 01/09/2021 01/11/2021 5:59 AM CDT COVID - 19 02/25/2021 02/28/2021 03/17/2021 12:1 6 AM CDT COVID - 19 09/30/2021 09/30/2021 10/20/2021 12:1 6 AM POLYSOMNOGRAPHIC TECH Assessment Noted Time PHQ-9 Depression Total Score: 0 11/14/19 19 11:16 AM POLYSOMNOGRAPHIC TECH documented as of this encounter Care Teams Forming Mill Operator Relationship Specialty Start Date End Date Kendra Chilel PAC [address] [place] [address] PCP - General Physician Breaker Operator 08/25/17 documented as of this encounter
--- OUTSIDE RECORDS SUMMARY | 2025-04-27 12:45 | XMS_ITS | Encounter Summary ---
Author Organization [facility] Address [address] [place] [address] Phone Care Team Providers Care Cracking And Fanning Machine Operator Name Role Phone Kendra Chilel Primary Care Provider + Reason for Visit * Reason Onset Date Comments Medication Refill 04/24/2025 Encounter Details Date Type Department Care Team (Late st Contact Info) Description 04/24/2025 Refill [facility] Medical [facility] - [facility] [address] [place] [address] Kendra Chilel PAC [address] [place] [address] Medication Refill Social History Tobacco Use Types Packs/Day Years Used Date Smoking Tobacco: Every Day Cigarettes 1 5 Smokeless Tobacco: Never Alcohol Use Standard Drinks/Week Comments Never 0 (1 standard drink = 0.6 oz pur e alcohol) 2 X a year [facility] Utilities Answer Date Recorded In the past 12 months has [employer] electric, gas, oil, or water company threatened to shut off services in your home? No 12/12/2024 Social Connection and Isolation Panel Answer Date Recorded In a typical week, how many times do you talk on the phone with family, friends, or neighbors? Patient declined 12/13/19 25 How often do you get togethe r with friends or relatives? Never 12/12/2024 How often do you attend [facility] or [facility] services? Never 12/12/2024 Do you belong to any clubs o r organizations such as taoism groups, unions, fraternal or athletic groups, or [...] Total Score - Questions 1-9 0 11/26 [facility] - Occupational [...] any time in the past 12 [facility], were you homeless or living in a [facility] (including now)? No 12/12/2024 Education Answer Date [...] Telephone Encounter - Elana Macedo RN - 04/25/2025 8:29 AM CDT Medication failed the protocol, provider to review and approve the medication order if appropriate. Requested Prescriptions Pending Prescriptions Disp Refills insulin lispro (HumaLOG) 100 UNIT/ML Solution 30 mL 1 Si Units by Subcutaneous route 3 times daily (before meals). Use as directed Not Delegated - Insulin Protocol Failed - 04/25/2025 8:29 AM Failed - This refill cannot be delegated Passed - Visit with relevant provider in past 12 months or upcoming 90 days Recent Visits Date Type Provider Dept 12/14/24 Office Visit Kendra Chilel PAC [facility] 06/16/24 Office Visit Kendra Chilel PAC [facility] Showing recent visits within past 365 days and meeting all other requirements Future Appointments No visits were found meeting these conditions. Showing future appointments within next 90 days and meeting all other requirements * Telephone Encounter - Karla May MA - 04/24/2025 1:23 PM CDT Patient stated she takes Humalog 100 unit/ml solution unless pcp switched her to something else andwas not told Humalog was discontinued. documented in this encounter Plan of Treatment Not on file documented as of this encounter Visit Diagnoses Diagnosis Type 2 diabetes mellitus with complication, with long-term current use of insulin (HCC) documented in this encounter Additional Health Concerns Assessment Noted Time PHQ-9 Depression Total Score: 0 12/15/19 25 10:22 AM CDT documented as of this encounter Care Teams Cracking And Fanning Machine Operator Relationship Specialty Start Date End Date Kendra Chilel PAC [address] [place] [address] PCP - General Physician Flare Maker 08/25/17 documented as of this encounter
--- OUTSIDE RECORDS SUMMARY | 2025-04-27 12:45 | XMS_ITS | Encounter Summary ---
Author Organization [facility] Address [address] [place] [address] Phone Care Team Providers Care All Around Presser Name Role Phone Kendra Chilel Primary Care Provider + Reason for Visit * Reason Comments Medication Refill Encounter Details Date Type Department Care Team (Late Contact Info) Description 05/16/2020 Refill [facility] - Family [facility] [address] [place] [address] Kendra Chilel PAC [address] [place] [address] Medication Refill Social History Tobacco Use Types [...] encounter Miscellaneous Notes * Telephone Encounter - Perlita Palumbo APN, DAILY - 05/17/2020 3:10 PM CDT [place] monitoring site checked, UDS UTD, approved * Telephone Encounter - LynchHyacinth mijares - 05/17/2020 1:48 PM CDT [place] 01/29/2020 PDMP reviewed Diazepam last dispensed on 04/12/2020 Routing to provider for review and approval r/t Not Delegated. documented in this encounter Plan of Treatment Not on file documented as of this encounter Visit Diagnoses Diagnosis Anxiety Anxiety state, unspecified documented in this encounter Additional Health Concerns Infection Onset Date Last Indicated Resolved Time COVID - 19 07/06/2020 07/06/2020 07/08/2020 11:2 3 AM CDT COVID - 19 10/29/2020 10/29/2020 11/01/2020 8:13 AM ORDNANCE TECHNICIAN COVID - 19 01/08/2021 01/09/2021 01/11/2021 5:59 AM CDT COVID - 19 02/25/2021 02/28/2021 03/17/2021 12:1 6 AM CDT COVID - 19 09/30/2021 09/30/2021 10/20/2021 12:1 6 AM ORDNANCE TECHNICIAN Assessment Noted Time PHQ-9 Depression Total Score: 0 11/14/19 19 11:16 AM ORDNANCE TECHNICIAN documented as of this encounter Care Teams All Around Presser Relationship Specialty Start Date End Date Kendra Chilel PAC [address] [place] [address] PCP - General Physician [employer] 08/25/17 documented as of this encounter
--- OUTSIDE RECORDS SUMMARY | 2025-04-27 12:45 | XMS_ITS | Encounter Summary ---
Author Organization [facility] Address [address] [place] [address] Phone Care Team Providers Care Helicopter Specialist Name Role Phone Kendra Chilel Primary Care Provider + Reason for Visit * Reason Comments Medication Refill Encounter Details Date Type Department Care Team (Late st Contact Info) Description 03/15/2024 Refill [facility] - [facility] [address] [place] [address] Kendra Chilel PAC [address] [place] [address] Medication Refill Social History Tobacco Use Types [...] Telephone Encounter - Mona Morrison RN - 03/15/2024 11:16 AM CDT Medication failed the protocol, provider to review and approve the medication order if appropriate. Requested Prescriptions Pending Prescriptions Disp Refills tiZANidine (ZANAFLEX) 4 MG Tablet [Pharmacy Med Name: TIZANIDINE HCL 4 MG TABLET] 60 Tablet 2 Sig: TAKE ONE TABLET BY MOUTH EVERY SIX HOURS NEEDED Not Delegated - Muscle Relaxants Protocol Failed - 03/15/2024 11:15 AM Failed - This refill cannot be delegated Passed - Visit with relevant provider in past 12 months or upcoming 90 days Recent Visits Date Type Provider Dept 02/14/24 Office Visit Kendra Chilel PAC [facility] 08/26/23 Office Visit Kendra Chilel PAC [facility] 08/06/23 Telemedicine Kendra Chilel [facility] Showing recent visits within past 365 days and meeting all other requirements Future Appointments No visits were found meeting these conditions. Showing future appointments within next 90 days and meeting all other requirements Passed - ALT less than 90 and AST less than 55 on record in past 12 months SGOT (AST) Date Value Ref Range Status 02/14/2024 42 (H) 5 - 34 U/L Final SGPT (ALT) Date Value Ref Range Status 02/14/2024 46 0 - 55 U/L Final documented in this encounter Plan of Treatment Not on file documented as of this encounter Visit Diagnoses Not on filedocumented in this encounter Additional Health Concerns Assessment Noted Time PHQ-9 Depression Total Score: 0 01/09/20 21 3:47 PM CDT documented as of this encounter Care Teams Helicopter Specialist Relationship Specialty Start Date End Date Kendra Chilel PAC [address] [place] [address] PCP - General Physician Employee Benefits Specialist 08/25/17 documented as of this encounter
--- OUTSIDE RECORDS SUMMARY | 2025-04-27 12:45 | XMS_ITS | Encounter Summary ---
Author Organization [facility] Address [address] [place] [address] Phone Care Team Providers Care Assistant Hvac Mechanic Name Role Phone Kendra Chilel Primary Care Provider + Reason for Visit * Reason Comments Medication Refill Encounter Details Date Type Department Care Team (Late st Contact Info) Description 02/07/[address] [facility] - [facility] [address] [place] [address] Kendra Chilel PAC [address] [place] [address] Medication Refill Social History Tobacco Use Types [...] Telephone Encounter - Elana Macedo RN - 02/07/2024 4:25 PM CDT Medication(s) refilled and signed per [facility] Chronic Medication Refill Standing Order for Pediatricand Adult Patients. Requested Prescriptions Pending Prescriptions Disp Refills atorvastatin (LIPITOR) 40 MG Tablet [Pharmacy Med Name: ATORVASTATIN 40MG TABLET] 90 Tablet 1 Sig: TAKE ONE TABLET BY MOUTH DAILY Hmg CoA Reductase Inhibitors Protocol Passed - 02/07/2024 11:58 AM Passed - No positive test in the past 12 months or most recent test was negative Passed - Visit with relevant provider in past 12 months or upcoming 90 days Recent Visits Date Type Provider Dept 08/26/23 Office Visit Kendra Chilel [facility] 08/06/23 Telemedicine Kendra Chilel PAC [facility] 03/05/23 Office Visit Kendra Chilel [facility] [place] Showing recent visits within past 365 days and meeting all other requirements Future Appointments Date Type Provider Dept 02/14/24 Appointment Kendra Chilel PAC [facility] Showing future appointments within next 90 days and meeting all other requirements Passed - No active on record Passed - Lipid panel in past 12 months LDL Date Value Ref Range Status 03/05/2023 40 5 - 130 mg/dL Final HDL CHOLESTEROL Date Value Ref Range Status 03/05/2023 20.8 (L) >40 mg/dL Final CHOLESTEROL Date Value Ref Range Status 03/05/2023 108 <=200 mg/dL Final TRIGLYCERIDES Date Value Ref Range Status 03/05/2023 236 (H) <150 mg/dL Final VLDL Date Value Ref Range Status 03/05/2023 47 5 - 55 mg/dL Final CHOL/HDL RATIO Date Value Ref Range Status 03/05/2023 5.2 (H) 0.0 - 4.4 Final NON-HDL CHOLESTEROL Date Value Ref Range Status 03/05/2023 87.2 <130 mg/dL Final Passed - CMP in past 12 months SODIUM Date Value Ref Range Status 08/26/2023 138 136 - 145 mmol/L Final POTASSIUM Date Value Ref Range Status 08/26/2023 4.3 3.5 - 5.1 mmol/L Final CHLORIDE Date Value Ref Range Status 08/26/2023 108 (H) 98 - 107 mmol/L Final CO2, VENOUS Date Value Ref Range Status 08/26/2023 19 (L) 22 - 30 mmol/L Final ANION GAP Date Value Ref Range Status 08/26/2023 15.3 <18.0 mmol/L Final GLUCOSE Date Value Ref Range Status 08/26/2023 148 (H) 70 - 99 mg/dL Final BUN Date Value Ref Range Status 08/26/2023 18 5 - 18 mg/dL Final CREATININE, BLOOD Date Value Ref Range Status 08/26/2023 0.91 0.60 - 1.00 mg/dL Final BUN/CREATININE RATIO Date Value Ref Range Status 08/26/2023 20 12 - 20 ratio Final TOTAL PROTEIN Date Value Ref Range Status 08/26/2023 7.2 6.3 - 8.2 g/dL Final ALBUMIN Date Value Ref Range Status 08/26/2023 4.2 3.5 - 5.0 g/dL Final A/G RATIO Date Value Ref Range Status 08/26/2023 1.4 1.0 - 2.2 Final CALCIUM Date Value Ref Range Status 08/26/2023 9.4 8.7 - 10.5 mg/dL Final T BILI Date Value Ref Range Status 08/26/2023 0.4 0.2 - 1.2 mg/dL Final SGOT (AST) Date Value Ref Range Status 08/26/2023 28 5 - 34 U/L Final SGPT (ALT) Date Value Ref Range Status 08/26/2023 46 0 - 55 U/L Final ALKALINE PHOSPHATASE Date Value Ref Range Status 08/26/2023 48 40 - 150 U/L Final GFR, EST. NONAFRICAN Date Value Ref Range Status 08/26/2023 >60 >=60 Final GFR, EST. Date Value Ref Range Status 08/26/2023 >60 >=60 Final GFR, ESTIMATED Date Value Ref Range Status 08/26/2023 >60 >=60 Final Comment: Creatinine Clearance is the preferred criteria for selecting drug dose adjustments in renally impaired patients. The GFR is provided as additional pertinent clinical information. GFR is reported in mL/min/1.73 sq m. Calculation based on the Chronic Kidney Disease Epidemiology Collaboration (CKD- EPI) equation refitwithout adjustment for race. IS THE PATIENT REQUIRED TO BE FASTING? Date Value Ref Range Status 08/26/2023 No Final documented in this encounter Plan of Treatment Not on file documented as of this encounter Visit Diagnoses Not on filedocumented in this encounter Additional Health Concerns Assessment Noted Time PHQ-9 Depression Total Score: 0 01/09/20 21 3:47 PM CDT documented as of this encounter Care Teams Assistant Hvac Mechanic Relationship Specialty Start Date End Date Kendra Chilel PAC [address] [place] [address] PCP - General Physician Prisoner Classification Interviewer 08/25/17 documented as of this encounter
--- OUTSIDE RECORDS SUMMARY | 2025-04-27 12:45 | XMS_ITS | Clinical Summary ---
Author Organization [facility] [employer] Address [address] [place] [address] Care Team Providers Care Rubber Press Operator Name Role Phone Unknown, Provider Primary Care Provider Unavaila ble Source Comments [facility],non-owned Affiliates and Associated Physician Practices is amultiple site organization consisting of ambulatory clinics and hospital sitesin [place], [place], [place] and [place]. This disclosure is being madepursuant to the Care Everywhere program and may not contain all information available regarding this patient. Last updated 18.[facility] [employer] Social History Tobacco Use Types Packs/Day Years Used Date Smoking Tobacco: Never Assessed Comments Unknown Sex and Gender Information Value Date Recorded Sex Assigned at Not on file Legal Sex Female 6:30 AM CONTRACT MANAGEMENT SPECIALIST Gender Identity Not on file Sexual Orientation Not on file Plan of Treatment Health Maintenance Due Date Last Done Comments COLOGUARD (AGES 45-75) - COL ON CA SCREENING 1976 COLON MONITORING 1976 COLONOSCOPY - COLON CA SCREENING 1976 CT COLONOGRAPHY - COLON CA SCREENING 1976 Colorectal Cancer Screening 1976 FIT - COLON CA SCREENING 1976 FLEX SIG - COLON CA SCREENING 1976 LIPID TESTING 1976 MAMMOGRAM 1976 HIV SCREENING 1991 HEPATITIS C SCREENING 04/28/1994 DTAP/TDAP/TD VACCINES (1 - Tdap) 1995 HEPATITIS B VACCINE (1 of 3 - 19+ 3-dose series) 1995 COVID-19 VACCINE ( - 2023-2 5 season) 2024 DEPRESSION SCREENING 09/27/2024 INFLUENZA VACCINE (#1) 2025 ZOSTER VACCINE (1 of 2) 2026 HIB VACCINE Aged Out No longer eligi ble based on patient's age to complete this topic HPV VACCINE Aged Out No longer eligi ble based on patient's age to complete this topic MENINGOCOCCAL (Group B) VACC INE SHARED DECISION-MAKING Aged Out No longer eligibl e based on patient's age to complete this topic MENINGOCOCCAL GROUPS A/C/Y/W VACCINE Aged Out No longer eligible b ased on patient's age to complete this topic PNEUMOCOCCAL VACCINE Aged Out No long er eligible based on patient's age to complete this topic Insurance [facility] MEDICAID - OUT OF [facility] Care Teams Rubber Press Operator Relationship Specialty Start Date End Date Unknown, Provider PCP - General 01/26/18
--- OUTSIDE RECORDS SUMMARY | 2025-04-27 12:45 | XMS_ITS | Encounter Summary ---
Author Organization [facility] Address [address] [place] [address] Phone Care Team Providers Care Telecommunications Network Engineer Name Role Phone Kendra Chilel Primary Care Provider + Reason for Visit * Reason Comments Medication Refill Encounter Details Date Type Department Care Team (Late st Contact Info) Description 02/27/2021 Refill [facility] - [facility] [address] [place] [address] Kendra Chilel PAC [address] [place] [address] Medication Refill Social History Tobacco Use Types [...] have Coronavirus / COVID-19? No / Unsure 01/29/2021 10:05 AM CDT documented as of this encounter Miscellaneous Notes * Telephone Encounter - Elana Macedo RN - 02/28/2021 10:09 AM CDT [place] PD[place] 01/20/21 Medication failed the protocol, provider to review and approve the medication order if appropriate. Requested Prescriptions Pending Prescriptions Disp Refills diazePAM (VALIUM) 5 MG Tablet [Pharmacy Med Name: DIAZEPAM 5 MG TABLET] 45 Tablet Sig: TAKE ONE TABLET BY MOUTH EVERY EIGHT HOURS NEEDED [facility] Not Delegated - Psychiatry: Anxiolytics/Hypnotics Failed - 02/28/2021 10:09 AM Failed - This refill cannot be delegated Passed - Valid encounter within last 6 months Past Office Visits Recent Outpatient Visits 1 month ago Type 2 diabetes mellitus with complication, with long-term current use of insulin ([facility]) [facility] - Kendra Galvan PAC 1 month ago Type 2 diabetes mellitus with complication, with long-term current use of insulin ([facility]) [facility] - Kendra Galvan PAC 1 month ago Type 2 diabetes mellitus with complication, with long-term current use of insulin ([facility]) [facility] - Kendra Galvan PAC 4 months ago Diarrhea, unspecified type [facility] Kendra Galvan PAC 7 months ago Well woman exam [facility] - Kendra Galvan PAC Upcoming Appointments ELECTRONIC COMPONENT PROCESSOR - Recent and Past Visits Recent Visits Date Type Provider Dept 01/29/21 [facility] Visit Kendra [facility]l [facility] 10/28/20 Telemedicine Kendra Chilel, PAC [facility] 08/01/20 Office Visit Kendra Chilel, PAC [facility] [place] 07/15/20 Office Visit Kendra Chilel, PAC [facility] [place] 01/29/20 Office Visit Kendra Cihlel, PAC [facility] [place] 01/19/20 Telemedicine Kendra Chilel, PAC [facility] 12/26/19 Telemedicine Kendra Chilel, PAC [facility] [place] Showing recent visits within past 460 days with a meds authorizing provider and meeting all other requirements Future Appointments No visits were found meeting these conditions. Showing future appointments within next 90 days with a meds authorizing provider and meeting all other requirements documented in this encounter Plan of Treatment Not on file documented as of this encounter Visit Diagnoses Diagnosis Anxiety Anxiety state, unspecified documented in this encounter Additional Health Concerns Infection Onset Date Last Indicated Resolved Time COVID - 19 02/25/2021 02/28/2021 03/17/2021 12:1 6 AM CDT COVID - 19 09/30/2021 09/30/2021 10/20/2021 12:1 6 AM PRESS SET UP Assessment Noted Time PHQ-9 Depression Total Score: 0 01/09/20 21 3:47 PM CDT documented as of this encounter Care Teams Telecommunications Network Engineer Relationship Specialty Start Date End Date Kendra Chilel PAC [address] [place] [address] PCP - General Physician Rug Washer 08/25/17 documented as of this encounter
--- OUTSIDE RECORDS SUMMARY | 2025-04-27 12:45 | XMS_ITS ---
Author Organization [facility] Address [address] [place] [address] Phone Care Team Providers Care Survey Director Name Role Phone Kendra Chilel Primary Care Provider + [place] Chronic Condition Monitoring Status:Enrolled (Active) Start date:09/08/2023 Enrollment date:09/09/2023 Current support & services provided:Hypertension Management Related social drivers of health:Intimate Partner Violence, Social Connections, Alcohol Use, Tobacco Use, Financial Resource Strain,Depression, Stress, Physical Activity, Food Insecurity, Transportation Needs, Housing Stability, Utilities Continued Care and Services Coordination
--- OUTSIDE RECORDS SUMMARY | 2025-04-27 12:45 | XMS_ITS | Encounter Summary ---
Author Organization [employer] Care Team Providers Care Metalsmith Name Role Phone Kendra Chilel Primary Care Provider + Encounter Details Date Type Department Care Team (Latest Contact Info) Description 04/26/2025 Travel Social History Tobacco Use Types Packs/Day Years Used Date Smoking Tobacco: Every Day Cigarettes 1 5 Smokeless Tobacco: Never Alcohol Use Standard Drinks/Week Comments Never 0 (1 standard drink = 0.6 oz pur e alcohol) 2 X a year [facility] Utilities Answer Date Recorded In the past 12 months has [employer] electric, gas, oil, or water company threatened to shut off services in your home? No 12/12/2024 Social Connection and Isolation Panel Answer Date Recorded In a typical week, how many times do you talk on the phone with family, friends, or neighbors? Patient declined 12/13/19 How often do you get togethe r with friends or relatives? Never 12/12/2024 How often do you attend [facility] or judaism services? Never 12/12/2024 Do you belong to any clubs o r organizations such as caodaism groups, unions, fraternal or athletic groups, or [...] Total Score - Questions 1-9 0 11/26 [facility] - Occupational Stress Questionnaire Answer Date Recorded [...] any time in the past 12 m [facility], were you homeless or living in a fci (including now)? No 12/12/2024 Education Answer Date [...] AM CDT documented as of this encounter Plan of Treatment Not on file documented as of this encounter Visit Diagnoses Not on filedocumented in this encounter Additional Health Concerns Assessment Noted Time PHQ-9 Depression Total Score: 0 12/15/19 25 10:22 AM CDT documented as of this encounter Care Teams Metalsmith Relationship Specialty Start Date End Date Kendra Chilel PAC [address] [place] [address] PCP - General Physician Industrial Pipefitter Journeyman 08/25/17 documented as of this encounter
--- OUTSIDE RECORDS SUMMARY | 2025-04-27 12:45 | XMS_ITS | Encounter Summary ---
Author Organization [facility] Address [address] [place] [address] Phone Care Team Providers Care Lay Out Drafter Name Role Phone Kendra Chilel Primary Care Provider + Reason for Visit * Reason Comments Medication Refill Encounter Details Date Type Department Care Team (Late st Contact Info) Description 11/16/2022 Refill [facility] [place] [address] [place] [address] Kendra Chilel PAC [address] [place] [address] Medication Refill Social History Tobacco Use Types [...] suspected to have Coronavirus/COVID-19? No / Unsure 10/23/2022 10:12 AM METAL SORTER documented as of this encounter Miscellaneous Notes * Telephone Encounter - Elana Macedo RN - 11/16/2022 9:28 AM CST Should have refills on file tiZANidine (ZANAFLEX) 4 MG Tablet 60 Tablet 2 refills 10/15/2022 Sig - Route: Take 1 Tablet by mouth every 6 hours as needed for Muscle spasms. - Oral Sent to pharmacy as: tiZANidine HCl 4 MG Oral Tablet (ZANAFLEX) Class: E Prescribe E-Prescribing Status: Receipt confirmed by pharmacy (10/15/2022 ??4:33 PM METAL SORTER) tiZANidine (ZANAFLEX) 4 MG Tablet [[id number]] 1632 Status: Active Ordering user: Kendra Chilel PAC 10/15/22 1632 Authorized by: Kendra Chilel PAC PRN reasons: Muscle spasms Frequency: Q6H PRN 10/15/22 - Until Discontinued Released by: Kendra Chilel PAC 10/15/22 1632 Pharmacy [facility] [place] [place] - [facility] [place] [address] SORTER * Telephone Encounter - Elana Macedo RN - 11/16/2022 9:26 AM CST Images from the original note were not included. tiZANidine HCl Dispensed Days Supply Quantity Provider Pharmacy TIZANIDINE 4MG TAB 10/15/2022 15 60 Tablet Kendra Chilel PAC [facility]... L SORTER documented in this encounter Plan of Treatment Not on file documented as of this encounter Visit Diagnoses Not on filedocumented in this encounter Additional Health Concerns Assessment Noted Time PHQ-9 Depression Total Score: 0 01/09/20 21 3:47 PM CDT documented as of this encounter Care Teams Lay Out Drafter Relationship Specialty Start Date End Date Kendra Chilel PAC [address] [place] [address] PCP - General Physician Consumer Recruiter 08/25/17 documented as of this encounter
--- OUTSIDE RECORDS SUMMARY | 2025-04-27 12:45 | XMS_ITS | Encounter Summary ---
Author Organization [facility] Address [address] [place] [address] Phone Care Team Providers Care Dependency Counselor Name Role Phone Kendra hCilel Primary Care Provider + Reason for Visit * Reason Comments Medication Refill Encounter Details Date Type Department Care Team (Late st Contact Info) Description 12/06/2023 Refill [facility] [address] [place] [address] Kendra Chilel PAC [address] [place] [address] Medication Refill Social History Tobacco Use Types [...] Telephone Encounter - Elana Macedo RN - 12/06/2023 11:25 AM CDT Medication(s) refilled and signed per [facility] Chronic Medication Refill Standing Order for Pediatricand Adult Patients. Requested Prescriptions Pending Prescriptions Disp Refills omeprazole (PriLOSEC) 40 MG CAPSULE DELAYED RELEASE [Pharmacy Med Name: OMEPRAZOLE DR 40 MG CAPSULE] 90 Capsule 1 Sig: TAKE ONE CAPSULE BY MOUTH DAILY Proton Pump Inhibitors Protocol Passed - 12/06/2023 8:10 AM Passed - No positive test in the past 12 months or most recent test was negative Passed - Visit with relevant provider in past 12 months or upcoming 90 days Recent Visits Date Type Provider Dept 08/26/23 Office Visit Kendra Chilel PAC [facility] 08/06/23 Telemedicine Kendra Chilel PAC [facility] 03/05/23 Office Visit Kendra Chilel PAC [facility] Showing recent visits within past 365 days and meeting all other requirements Future Appointments Date Type Provider Dept 01/19/24 Appointment Kendra Chilel PAC [facility] Showing future appointments within next 90 days and meeting all other requirements Passed - No active on record documented in this encounter Plan of Treatment Not on file documented as of this encounter Visit Diagnoses Not on filedocumented in this encounter Additional Health Concerns Assessment Noted Time PHQ-9 Depression Total Score: 0 01/09/20 21 3:47 PM CDT documented as of this encounter Care Teams Dependency Counselor Relationship Specialty Start Date End Date Kendra Chilel PAC [address] [place] [address] PCP - General Physician Hospitality Internship 08/25/17 documented as of this encounter
--- OUTSIDE RECORDS SUMMARY | 2025-04-27 12:45 | XMS_ITS | Encounter Summary ---
Author Organization [facility] Address [address] [place] [address] Phone Care Team Providers Care Turner Splitter Machine Operator Name Role Phone Kendra Chilel Primary Care Provider + Encounter Details Date Type Department Care Team (Late st Contact Info) Description 04/27/2025 Telephone [facility] [address] [place] [id number] Kendra Chilel PAC [address] [place] [address] Social History Tobacco Use Types Packs/Day Years Used Date Smoking Tobacco: Every Day Cigarettes 1 10 Smokeless Tobacco: Never Comments:Currently using vap pen to try n quit Alcohol Use Standard Drinks/Week Comments No 0 (1 standard drink = 0.6 oz pur e alcohol) 2 X a year [facility] Utilities Answer Date Recorded In the past 12 months has [employer], gas, oil, or water [employer] threatened to shut off services in your home? No 12/12/2024 Social Connection and Isolation Panel Answer Date Recorded In a typical week, how many times do you talk on the phone with family, friends, or neighbors? Patient declined 12/13/19 How often do you get togethe r with friends or relatives? Never 12/12/2024 How often do you attend [facility] or advent services? Never 12/12/2024 Do you belong to any clubs o r organizations such as jain groups, unions, fraternal or athletic groups, or [...] Total Score - Questions 1-9 0 11/26 [facility] - Occupational Stress Questionnaire Answer Date Recorded [...] any time in the past 12 m [facility], were you homeless or living in a detention (including now)? No 12/12/2024 Education Answer Date Recorded What is the highest level of school you have completed or the highest degree you have received? Associate degree: occupational, technical, or vocational program 10/23/2022 Sexually Active Control Partners Comments Yes None Male None PCOS never diagnosed Comments No Sex and Gender Information Value Date Recorded Sex Assigned at Not on file Legal Sex Female 10:41 PM CDT Gender Identity Female 07/28/2023 10:16 AM CDT Sexual Orientation Straight 07/28/2023 10 :16 AM CDT documented as of this encounter Miscellaneous Notes * Telephone Encounter - Paz Camarena CMA - 04/27/2025 11:39 AM CDT Lab orders faxed to [facility] lab per the request of patient. documented in this encounter Plan of Treatment Not on file documented as of this encounter Visit Diagnoses Not on filedocumented in this encounter Additional Health Concerns Assessment Noted Time PHQ-9 Depression Total Score: 0 12/15/19 25 10:22 AM CDT documented as of this encounter Care Teams Turner Splitter Machine Operator Relationship Specialty Start Date End Date Kendra Chilel PAC [address] [place] [address] PCP - General Physician Business Rules Developer 08/25/17 documented as of this encounter
--- OUTSIDE RECORDS SUMMARY | 2025-04-27 12:45 | XMS_ITS | Encounter Summary ---
Author Organization [facility] Address [address] [place] [address] Phone Care Team Providers Care Wharfinger Chief Name Role Phone Kendra Chilel Primary Care Provider + Reason for Referral * Radiology Services (Routine) - Authorized Specialty Diagnoses / Procedures Referred By Contac t Referred To Contact Radiology Diagnoses Right upper quadrant pain Generalized abdominal pain Procedures US ABDOMEN COMPLETE Kendra Chilel PAC [address] [place] [address] Phone: tel: fax: Referral ID Status Reason Start Date Expiration Date V isits Requested Visits Authorized [id number] Authorized 04/27/2025 1 1 Reason for Visit * Reason Comments Abdominal Pain Encounter Details Date Type Department Care Team (Late st Contact Info) Description 04/27/2025 8:15 AM CDT Telemedicine [facility] [address] [place] [address] Kendra Chilel PAC [address] [place] [address] Right upper quadrant pain (Primary Dx); Type 2 diabetes mellitus with complication, with long-term current use of insulin (HCC); Low magnesium level; Generalized abdominal pain; Vitamin D deficiency Social History Tobacco Use Types Packs/Day Years Used Date Smoking Tobacco: Every Day Cigarettes 1 10 Smokeless Tobacco: Never Tobacco Cessation:Ready to Q uit: Yes; Counseling Given: Not Answered Comments:Currently using vap pen to try n quit Alcohol Use Standard Drinks/Week Comments No 0 (1 standard drink = 0.6 oz pur e alcohol) 2 X a year [facility] Utilities Answer Date Recorded In the past 12 months has e electric, gas, oil, or water company threatened to shut off services in your home? No 12/12/2024 Social Connection and Isolation Panel Answer Date Recorded In a typical week, how many times do you talk on the phone with family, friends, or neighbors? Patient declined 12/13/19 How often do you get togethe r with friends or relatives? Never 12/12/2024 How often do you attend chur ch or lutheran services? Never 12/12/2024 Do you belong to any clubs o r organizations such as hoahaoism groups, unions, fraternal or athletic groups, or [...] Total Score - Questions 1-9 0 11/26 [facility]at ional [facility] - Occupational Stress [...] any time in the past 12 m [facility], were you homeless or living in a group home (including now)? No 12/12/2024 Education Answer Date [...] AM CDT documented as of this encounter Progress Notes * Paz Camarena, LINE CAMERA OPERATOR - 04/27/2025 8:15 AM CDT Karie Bella, 49 y.o., female is here for Abdominal Pain Medication Refills: Patient reports/denies need for medication refills. Orders Pended: no Requested Prescriptions No prescriptions requested or ordered in this encounter Home Medications Medication Sig Start Date End Date Taking? Authorizing Provider acyclovir (ZOVIRAX) 400 MG Tablet TAKE ONE TABLET BY MOUTH THREE TIMES A DAY FOR FIVE DAYS 12/20/23 Yes Kendra Chilel PAC albuterol (PROVENTIL, VENTOLIN) (2.5 MG/3ML) 0.083% Nebulizer Soln INHALE THE CONTENTS OF ONE VIAL PER NEBULIZATION EVERY FOUR HOURS NEEDED FOR COUGH OR WHEEZING 02/15/20 Yes Kendra Chilel PAC albuterol 108 (90 Base) MCG/ACT Aerosol Solution TAKE 2 PUFFS BY INHALATION EVERY 4 HOURS NEEDEDFOR WHEEZING. 02/15/24 Yes Kendra Chilel PAC aspirin EC 81 MG Tablet Delayed Response Take 81 mg by mouth daily. Yes Emergency, Nurse, RN atenolol (TENORMIN) 50 MG Tablet TAKE ONE TABLET BY MOUTH DAILY 03/26/25 Yes Kendra Chilel PAC atorvastatin (LIPITOR) 40 MG Tablet TAKE ONE TABLET BY MOUTH DAILY 02/06/25 Yes Kendra Chilel PAC Blood Glucose Monitoring Suppl Device Diagnosis: e11.8 Blood testing frequency: 4 times a day 03/08/25 Yes Kendra Chilel PAC cetirizine (ZyrTEC) 10 MG Tablet Take 10 mg by mouth daily. Yes Provider, MD Young diazePAM (VALIUM) 5 MG Tablet Take 1 Tablet by mouth every 8 hours as needed for Anxiety. 04/25/25 Yes Kendra Chilel PAC ergocalciferol (VITAMIN D) 39458 UNIT Capsule Take 1 Capsule by mouth once a week. 12/21/24 Yes Kendra Chilel PAC fenofibrate (TRICOR) 145 MG Tablet TAKE ONE TABLET BY MOUTH DAILY 12/18/24 Yes Kendra Chilel PAC gabapentin (NEURONTIN) 300 MG Capsule TAKE ONE CAPSULE BY MOUTH THREE TIMES A DAY 12/18/24 Yes Kendra Chilel PAC Glucose Blood (Glucose Meter Test) Strip Test 3 times daily dx E11.8 03/07/25 Yes Kendra Chilel PAC Glucose Blood (TRUE METRIX BLOOD GLUCOSE TEST) Strip Test 4 times daily. DX E11.8 11/15/19 Yes Kendra Chilel PAC guaiFENesin-codeine (guaiFENesin AC) 100-10 MG/5ML Solution Take 10 mL by mouth every 6 hours as needed for Cough. 10/22/23 Yes Kendra Chilel PAC HYDROcodone-acetaminophen (NORCO) 10-325 MG Tablet Take 1 Tablet by mouth every 8 hours as needed for Moderate or more severe pain. 04/28/25 Yes Kendra Chilel PAC insulin glargine (Lantus SoloStar) 100 UNIT/ML Solution Pen-injector INJECT 25 UNITS SUBCUTANEOUSLYEVERY MORNING AND 50-55 UNITS AT BEDTIME CHECK BLOOD SUGAR PRIOR TO INJECTION 03/01/25 Yes Kendra Chilel PAC insulin lispro (HumaLOG) 100 UNIT/ML Solution 30 Units by Subcutaneous route 3 times daily (before meals). Use as directed 04/25/25 Yes Kendra Chilel PAC Insulin Pen Needle (TRUEplus 5-Bevel Pen [place]) 31G X 5 MM Misc USE WITH INSULIN PEN TWICE DAILY 08/20/24 Yes Kendra Chilel PAC Insulin Syringe-Needle U-100 (TRUEplus Insulin Syringe) 31G X 5/16 1 ML Misc USE FOUR TIMES A DAY WITH INSULIN 02/24/24 Yes Kendra Chilel PAC Lancets Misc Test four times a day DX E11.8 03/08/25 Yes Kendra Chilel PAC losartan (COZAAR) 100 MG Tablet TAKE ONE TABLET BY MOUTH DAILY 04/13/25 Yes Kendra Chilel PAC Magnesium 500 MG Tablet Take 400 mg by mouth 3 times daily. Yes Young Miner MD magnesium oxide (MAG-OX) 400 MG Tablet Take 400 mg by mouth 3 times daily. Yes Young Miner MD Melatonin 5 MG Chewable Tablet Take 5 mg by mouth. Yes Young Miner MD metFORMIN (GLUCOPHAGE-XR) 750 MG TABLET SR 24 HR TAKE ONE TABLET BY MOUTH TWICE A DAY 12/18/24 Yes Kendra Chilel PAC omeprazole (PriLOSEC) 40 MG CAPSULE DELAYED RELEASE TAKE ONE CAPSULE BY MOUTH DAILY 01/15/25 Yes Kendra Chilel PAC OneTouch Ultra Strip USE TO TEST BLOOD SUGAR THREE TIMES A DAY 09/11/24 Yes Kendra Chilel PAC Semaglutide (Rybelsus) 14 MG Tablet Take 14 mg by mouth daily. 02/15/25 Yes Kendra Chilel PAC tiZANidine (ZANAFLEX) 4 MG Tablet TAKE ONE TABLET BY MOUTH EVERY SIX HOURS NEEDED FOR SPASMS 03/05/25 Yes Kendra Chilel PAC There are no discontinued medications. I have reviewed the home medication list with the patient and have reconciled discrepancies. The list is accurate to the best of my knowledge. Smoking Status: Social History[1] Smoking Cessation Counseling Given: no Health Care Maintenance: Health Maintenance Due Topic Date Due Diabetes: Foot Exam Never done Hepatitis B Immunization ( of - 19+ 3-dose series) Never done Diabetes: Eye Exam 02/05/2017 Colorectal Cancer Screening Never done SARS-COV-2 Immunization () 05/28/2024 Orders Pended: no The following BPA's have been addressed with the patient today: Video visit [1] Social History Tobacco Use Smoking status: Every Day Current packs/day: 1.00 Average packs/day: 1 pack/day for 10.0 years (10.0 ttl pk-yrs) Types: Cigarettes Smokeless tobacco: Never Tobacco comments: Currently using vap pen to try n quit Vaping Use Vaping status: Never Used Substance Use Topics Alcohol use: No Comment: 2 X a year Drug use: No * Kendra Chilel PAC - 04/27/2025 8:15 AM CDT Subjective: Subjective .Patient was assessed via Online video. Total time spent on this date of service was 04/27/2025 minutes. Video visit. Patient verbally consented for this service to be performed and billed. This visit was performed when I was physically located at clinic. The patient was at home On April 24 started with abdominal pain, took urine sample Feels this is not a normal UTI was started on macrobid, UTI was confirmed with culture Seen in [place] urgent care on 04/24 Feels diffuse abdominal pain Yesterday tender under breast to right side Nausea yesterday and 1 episode of vomiting 20-30 min after eating gets diarrhea Has gallbladder Has history of gallstones No fever Abdominal pain feeling better 2/10 today Review of Systems Constitutional: Negative for fever. Respiratory: Negative for cough and shortness of breath. Cardiovascular: Negative for chest pain and palpitations. Gastrointestinal: Positive for abdominal pain and nausea. Negative for constipation. Genitourinary: Negative for dysuria. Objective: Objective Physical Exam Constitutional: Appearance: Normal appearance. She is not ill-appearing. HENT: Head: Normocephalic and atraumatic. Pulmonary: Effort: No respiratory distress. Neurological: Mental Status: She is alert. Psychiatric: Mood and Affect: Mood normal. Assessment and Plan Assessment & Plan See Diagnoses, Orders, Follow-up, and Instructions .Diagnoses and all orders for this visit: Right upper quadrant pain - US ABDOMEN COMPLETE; Future Type 2 diabetes mellitus with complication, with long-term current use of insulin (HCC) - HEMOGLOBIN A1C W/ ESTIMATED GLUCOSE; Future - UR MICROALBUMIN/CREATININE RATIO RANDOM; Future Low magnesium level - MAGNESIUM (MG); Future Generalized abdominal pain - US ABDOMEN COMPLETE; Future - CMP (COMPREHENSIVE METABOLIC PANEL); Future - COMPLETE BLOOD COUNT (CBC) WITH DIFF; Future - LIPASE; Future Vitamin D deficiency - VITAMIN D, 25 HYDROXY TOTAL; Future Patient will have labs for follow up on diabetes and to check abdominal pain Instructed on light diet, avoid high fat foods Also rule out gallbladder issue She is to go to ER if abdominal pain is severe Can continue with tylenol for pain Denies reflux symptoms documented in this encounter Plan of Treatment Scheduled Orders Name Type Priority Associated Diagnoses Orde r Schedule US ABDOMEN COMPLETE Imaging Routine Right upper quadrant pain Generalized abdominal pain Expected: 04/27/2025, Expires: 10/28/2025 CMP (COMPREHENSIVE METABOLIC PANEL) Lab Routine Generalized abdominal pain Expected: 04/27/2025, Expires: 07/26/2025 COMPLETE BLOOD COUNT (CBC) WITH DIFF Lab Routine Generalized abdominal pain Expected: 04/27/2025, Expires: 07/26/2025 LIPASE Lab Routine Generalized abdominal pain Expected: 04/27/2025, Expires: 07/26/2025 HEMOGLOBIN A1C W/ ESTIMATED GLUCOSE Lab Routine Type 2 diabetes mellitus with complication, with long-term current use of insulin (HCC) Expected: 04/27/2025, Expires: 07/26/2025 MAGNESIUM (MG) Lab Routine Low magnesium level Expected: 04/27/2025, Expires: 07/26/2025 UR MICROALBUMIN/CREATININE RATIO RANDOM Lab Routine Type 2 diabetes mellitus with complication, with long-term current use of insulin (HCC) Expected: 04/27/2025, Expires: 07/26/2025 VITAMIN D, 25 HYDROXY TOTAL Lab Routine Vitamin D deficiency Expected: 04/27/2025, Expires: 07/26/2025 documented as of this encounter Visit Diagnoses Diagnosis Right upper quadrant pain- Primary Abdominal pain, right upper quadrant Type 2 diabetes mellitus with complication, with long-term current use of insulin (HCC) Low magnesium level Generalized abdominal pain Abdominal pain, generalized Vitamin D deficiency Unspecified vitamin D deficiency documented in this encounter Additional Health Concerns Assessment Noted Time PHQ-9 Depression Total Score: 0 12/15/19 25 10:22 AM CDT documented as of this encounter Care Teams Wharfinger Chief Relationship Specialty Start Date End Date Kendra Chilel PAC [address] [place] [address] PCP - General Physician Supervisor Estimator And Drafter 08/25/17 documented as of this encounter
--- OUTSIDE RECORDS SUMMARY | 2025-04-27 12:45 | XMS_ITS | Clinical Summary ---
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 sample exceed 1.5% (dark red or brown coloration) in PreservCyt solution, there is a likelihood of obtaining a false-negative result. HPV ORDER BE USED FOR SCREENING OR DIAGNOSTIC SCREENING 08/02/2020 3:39 PM [facility] Other Non-Phlebotomy Collection / Unknown 08/01/2020 11:09 AM COMMUNICABLE DISEASE SPECIALIST 08/01/2020 11:18 AM COMMUNICABLE DISEASE SPECIALIST [facility] - 08/02/2020 3:39 PM COMMUNICABLE DISEASE SPECIALIST Performed by Real-Time Polymerase Chain Reaction (PCR) on the Lucy Joseph 4800. This assay has been validated for use with post-aliquot samples from the [employer] T5000 processor. us Kendra Chilel PAC LAB SEND OUTS Final Re sult [facility] [address] [place] [address], [facility] [address] [place] [address] * HM DILATED EYE EXAM (02/06/2016) us Historical Provider MD PROCEDURE/MINOR SURGICAL ORDERABLES Final Result from Last 3 Months or Most Recently Relevant to Health Maintenance Insurance MEDICAID AETNA [facility] Advance Directives * Full Code (Latest Code Status on File) Date Activated Date Inactivated Comments 08/01/2017 3:11 PM 08/04/2017 12:34 PM CPR-Full Tr eatment: FULL ARREST: Attempt Resuscitation/CPR wit intubation and mechanical ventilation. PRE-ARREST: Use entire range of life support measures to stabilize the patient. Care Teams Crop Setting Out Machine Operator Relationship Specialty Start Date End Date Kendra Chilel, PAC [address] [place] [address] PCP - General Physician Net Application Support Specialist 08/25/17
--- OUTSIDE RECORDS SUMMARY | 2025-04-27 12:45 | XMS_ITS | Encounter Summary ---
Author Organization [facility] Address [address] [place] [address] Phone Care Team Providers Care Switchboard Wirer Name Role Phone Kendra Chilel Primary Care Provider + Reason for Visit * Reason Comments Medication Refill Encounter Details Date Type Department Care Team ([facility] st Contact Info) Description 12/16/2021 Refill [facility] Medical Group - [facility] [place] [address] [place] [address] Kendra Chilel PAC [address] [place] [address] Medication Refill Social History Tobacco Use Types [...] have Coronavirus / COVID-19? No / Unsure 11/25/2021 9:25 AM INSURANCE ACTUARY documented as of this encounter Miscellaneous Notes * Telephone Encounter - Elana Macedo RN - 12/17/2021 9:09 AM CDT Refills on file omeprazole (PriLOSEC) 40 MG CAPSULE DELAYED RELEASE 90 Capsule 3 refills 09/23/2021 Sig - Route: Take 1 Capsule by mouth daily. - Oral Sent to pharmacy as: Omeprazole 40 MG Oral Capsule Delayed Release (PriLOSEC) Class: E Prescribe E-Prescribing Status: Receipt confirmed by pharmacy (09/23/2021 ??9:08 AM INSURANCE ACTUARY) Order Questions ?? omeprazole (PriLOSEC) 40 MG CAPSULE DELAYED RELEASE [[id number]] 7 Status: Active Ordering user: Kendra Chilel PAC 09/23/21907 Authorized by: Kendra Chilel PAC Frequency: Daily 09/23/21 - Until Discontinued Released by: Kendra Chilel PAC 09/23/21 09 Pharmacy [place], [place] - [address] [facility] documented in this encounter Plan of Treatment Not on file documented as of this encounter Visit Diagnoses Not on filedocumented in this encounter Additional Health Concerns Assessment Noted Time PHQ-9 Depression Total Score: 0 01/09/20 3:47 PM CDT documented as of this encounter Care Teams Switchboard Wirer Relationship Specialty Start Date End Date Kendra Chilel PAC [address] [place] [address] PCP - General Physician Manager Quality 08/25/17 documented as of this encounter
--- OUTSIDE RECORDS SUMMARY | 2025-04-27 12:45 | XMS_ITS | Encounter Summary ---
Author Organization [facility] Address [address] [place] [address] Phone Care Team Providers Care Terminal Make Up Operator Name Role Phone Kendra Chilel Primary Care Provider + Reason for Visit * Reason Comments Medication Refill Encounter Details Date Type Department Care Team (Late st Contact Info) Description 02/15/2024 Refill [facility] - [facility] [address] [place] [address] Kendra Chilel PAC [address] [place] [address] Medication Refill Social History Tobacco Use Types [...] Telephone Encounter - Elana Macedo RN - 02/15/2024 9:20 AM CDT PRN medication requires review from provider Per nursing clinical judgement, provider to review and approve the medication(s) order(s) if appropriate. Requested Prescriptions Pending Prescriptions Disp Refills albuterol 108 (90 Base) MCG/ACT Aerosol Solution [Pharmacy Med Name: ALBUTEROL HFA 90 MCG INHALER (NY] 8.5 g 2 Sig: TAKE 2 PUFFS BY INHALATION EVERY 4 HOURS NEEDED FOR WHEEZING. Short Acting Inhaled Beta-Agonists Protocol Passed - 02/15/2024 8:01 AM Passed - Visit with relevant provider in past 12 months or upcoming 90 days Recent Visits Date Type Provider Dept 02/14/24 Office Visit Kendra Chilel PAC [facility] 08/26/23 Office Visit Kendra Chilel PAC [facility] 08/06/23 Telemedicine Kendra Chilel PAC [facility] 03/05/23 Office Visit Kendra Chilel PAC [facility] Showing recent visits within [...] documented as of this encounter Care Teams Terminal Make Up Operator Relationship Specialty Start Date End Date Kendra Chilel PAC [address] [place] [address] PCP - General Physician Highway Maintainer 08/25/17 documented as of this encounter
--- OUTSIDE RECORDS SUMMARY | 2025-04-27 12:45 | XMS_ITS | Encounter Summary ---
Author Organization [facility] Address [address] [place] [address] Phone Care Team Providers Care Supervisor Dehydrogenation Name Role Phone Kendra Chilel Primary Care Provider + Reason for Visit * Reason Comments Medication Refill Encounter Details Date Type Department Care Team ([facility] Contact Info) Description 02/12/2025 Refill [facility] Medical Group - [facility] [address] [place] [address] Kendra Chilel PAC [address] [place] [address] Medication Refill Social History Tobacco Use Types Packs/Day Years Used Date Smoking Tobacco: Every Day Cigarettes 1 5 Smokeless Tobacco: Never Alcohol Use Standard Drinks/Week Comments Never 0 (1 standard drink = 0.6 oz pur e alcohol) 2 X a year [facility] Utilities Answer Date Recorded In the past 12 months has [employer], gas, oil, or water [employer] threatened to shut off services in your home? No 12/12/2024 Social Connection and Isolation Panel Answer Date Recorded In a typical week, how many times do you talk on the phone with family, friends, or neighbors? Patient declined 12/13/19 How often do you get togethe r with friends or relatives? Never 12/12/2024 How often do you attend [facility] or episcopal services? Never 12/12/2024 Do you belong to any clubs o r organizations such as confucianism groups, unions, fraternal or athletic groups, or [...] Total Score - Questions 1-9 0 11/26 [facility] - Occupational Stress [...] any time in the past 12 m [facility], were you homeless or living in a correction (including now)? No 12/12/2024 Education Answer Date [...] documented as of this encounter Care Teams Supervisor Dehydrogenation Relationship Specialty Start Date End Date Kendra Chilel PAC [address] [place] [address] PCP - General Physician Dray Truck Driver 08/25/17 documented as of this encounter
--- OUTSIDE RECORDS SUMMARY | 2025-04-27 12:45 | XMS_ITS | Encounter Summary ---
Author Organization [facility] Address [address] [place] [address] Phone Care Team Providers Care Aquatic Centre Manager Name Role Phone Kendra Chilel Primary Care Provider + Reason for Visit * Reason Comments Medication Refill Encounter Details Date Type Department Care Team (Late st Contact Info) Description 11/25/2021 Refill [facility] Medical Group - [facility] [place] [address] [place] [address] Dee Lopez, PAC [address] [place] [address] Medication Refill Social History Tobacco Use Types [...] COVID-19? No / Unsure 11/25/2021 9:25 AM LABORER ORCHARD documented as of this encounter Miscellaneous Notes * Telephone Encounter - Nathalie Woodard RN - 11/25/2021 10:37 AM CST Medication failed the protocol, provider to review and approve the medication order if appropriate. Requested Prescriptions Pending Prescriptions Disp Refills tiZANidine (ZANAFLEX) 4 MG Tablet [Pharmacy Med Name: TIZANIDINE HCL 4 MG TABLET] 60 Tablet 2 Sig: TAKE ONE TABLET BY MOUTH EVERY EIGHT HOURS NEEDED Not Delegated - Muscle Relaxants Protocol Failed - 11/25/2021 8:53 AM Failed - This refill cannot be delegated Passed - Visit with relevant provider in past 12 months or upcoming 90 days Recent Visits Date Type Provider Dept 09/30/21 Office Visit Kendra Chilel, PAC [facility] 09/10/21 Office Visit Kendra Chilel, PAC [facility] 08/27/21 Office Visit Kendra Chilel, PAC [facility] 05/20/21 Telemedicine Kendra Chilel, PAC [facility] 03/04/21 Telemedicine Kendra Chilel, PAC [facility] 01/29/21 Office Visit Kendra Chilel, PAC [facility] [place] 01/15/21 Office Visit Kendra Chilel, PAC [facility] [place] 01/08/21 Office Visit Kendra Chilel, PAC [facility] Showing recent visits within past 365 days and meeting all other requirements Today's Visits Date Type Provider Dept 11/25/21 Appointment Kendra Chilel PAC [facility] [place] Showing today's visits and meeting all other requirements Future Appointments [...] Status 01/29/2021 59 (H) <=41 U/L Final [facility]ER [facility]CHARD documented in this encounter Plan of Treatment Not on file documented as of this encounter Visit Diagnoses Not on filedocumented in this encounter Additional Health Concerns Assessment Noted Time PHQ-9 Depression Total Score: 0 01/09/20 21 3:47 PM CDT documented as of this encounter Care Teams Aquatic Centre Manager Relationship Specialty Start Date End Date Kendra Chilel PAC [address] [place] [address] PCP - General Physician Orthotic Practitioner 08/25/17 documented as of this encounter
--- OUTSIDE RECORDS SUMMARY | 2025-04-27 12:45 | XMS_ITS | Encounter Summary ---
Author Organization [facility] Address [address] [place] [address] Phone Care Team Providers Care Guard Sergeant Name Role Phone Kendra Chilel Primary Care Provider + Reason for Visit * Reason Comments Medication Refill Encounter Details Date Type Department Care Team ([facility] st Contact Info) Description 11/05/2024 Refill [facility] Medical Group - [facility] [place] [address] [place] [address] Kendra Chilel PAC [address] [place] [address] Medication Refill Social History Tobacco Use Types Packs/Day Years Used Date Smoking Tobacco: Every Day Cigarettes 1 5 Smokeless Tobacco: Never Alcohol Use Standard Drinks/Week Comments Never 0 (1 standard drink = 0.6 oz pur e alcohol) 2 X a year [facility] Utilities Answer Date Recorded In the past 12 months has [employer]), gas, oil, or water [employer] threatened to shut off services in your home? No 06/15/2024 Social Connection and Isolation Panel Answer Date Recorded In a typical week, how many times do you talk on the phone with family, friends, or neighbors? Once a week 06/15/20 24 How often do you get togethe r with friends or relatives? Never 06/15/2024 How often do you attend [facility] or episcopalian services? Never 06/15/2024 Do you belong to any clubs o r organizations such as yazdanism groups, unions, fraternal or athletic groups, or school groups? No 06/15/2024 How often do you attend meet ings of the clubs or organizations you belong to? Never 06/15/2024 Are you , , di vorced, , never , or living with a partner? Living with partner 06/15/2024 AUDIT-C Answer Date Recorded Q1: How often do you have a drink containing alcohol? Never 06/15/2024 Q2: How many drinks containi ng alcohol do you have on a typical day when you are drinking? Patient does not drink Q3: How often do you have si x or more drinks on one occasion? Never 06/15/2024 Overall Financial Resource Strain (CARDIA) Answe r Date Recorded How hard is it for you to pa y for the very basics like food, housing, medical care, and heating? Not hard at all 06/15/2024 PHQ-2 Answer Date Recorded Total Score - Questions 1-9 0 0 12/2021 [facility] - Occupational Stress Questionnaire Answer Date Recorded Do you feel stress - tense, restless, nervous, or anxious, or unable to sleep at night because your mind is troubled all the time - these days? Rather much 06/15/2024 Exercise Vital Sign Answer Date Recorde d On average, how many days pe r week do you engage in moderate to strenuous exercise (like a brisk walk)? 0 days 06/15/2024 On average, how many minutes do you engage in exercise at this level? 0 min 06/15/2024 Hunger Vital Sign Answer Date Recorded Within the past 12 months, y ou worried that your food would run out before you got the money to buy more. Never true 06/15/20 24 Within the past 12 months, t he food you bought just didn't last and you didn't have money to get more. Never true 06/15/2024 PRAPARE - Transportation Answer Date Re corded In the past 12 months, has l ack of transportation kept you from medical appointments or from getting medications? No 05/28 In the past 12 months, has l ack of transportation kept you from meetings, work, or from getting things needed for daily living? No 06/15/2024 Housing Stability Vital Sign Answer Mendoza e Recorded In the last 12 months, was t here a time when you were not able to pay the mortgage or rent on time? No 06/15/2024 In the past 12 months, how m any times have you moved where you were living? 1 06/15/2024 At any time in the past 12 m [facility], were you homeless or living in a fdc (including now)? No 06/15/2024 Education Answer Date Recorded What is the [...] Telephone Encounter - Elana Macedo RN - 11/06/2024 1:58 PM CST Images from the original note were not included. Atorvastatin Calcium Dispensed Days Supply Quantity Provider Pharmacy ATORVASTATIN 40MG TAB 11/05/2024 90 90 Tablet Kendra Chilel PAC [facility] ATORVASTATIN 40MG TAB 08/14/2024 90 90 Tablet Kendra Chilel PAC [facility] NSIC EXAMINER documented in this encounter Plan of Treatment Not on file documented as of this encounter Visit Diagnoses Not on filedocumented in this encounter Additional Health Concerns Assessment Noted Time PHQ-9 Depression Total Score: 0 01/09/20 21 3:47 PM CDT documented as of this encounter Care Teams Guard Sergeant Relationship Specialty Start Date End Date Kendra Chilel PAC [address] [place] [address] PCP - General Physician Sales Representative Education Courses 08/25/17 documented as of this encounter
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
--- OUTSIDE RECORDS SUMMARY | 2025-04-27 12:45 | XMS_ITS | Encounter Summary ---
Author Organization [facility] Address [address] [place] [address] Phone Care Team Providers Care Dietetic Technician Registered Name Role Phone Kendra Chilel Primary Care Provider + Reason for Visit * Reason Comments Medication Refill Encounter Details Date Type Department Care Team ([facility] Contact Info) Description 06/12/2024 Refill [facility] Medical Group - [facility] [place] [address] [place] [address] Kendra Chilel PAC [address] [place] [address] Medication Refill Social History Tobacco Use Types Packs/Day Years Used Date Smoking Tobacco: Every Day Cigarettes 1 5 Smokeless Tobacco: Never Alcohol Use Standard Drinks/Week Comments Never 0 (1 standard drink = 0.6 oz pur e alcohol) 2 X a year [facility] Utilities Answer Date Recorded In the past 12 months has [employer], gas, oil, or water [employer] threatened to shut off services in your home? No 06/15/2024 Social Connection and Isolation Panel Answer Date Recorded In a typical week, how many times do you talk on the phone with family, friends, or neighbors? Once a week 06/15/20 24 How often do you get togethe r with friends or relatives? Never 06/15/2024 How often do you attend [facility] or jew services? Never 06/15/2024 Do you belong to any clubs o r organizations such as advent groups, unions, fraternal or athletic groups, or [...] Score - Questions 1-9 0 0 12/2021 [facility] - Occupational Stress Questionnaire Answer Date Recorded [...] any time in the past 12 m [facility], were you homeless or living in a alf (including now)? No 06/15/2024 Education Answer Date [...] as of this encounter Functional Status * AUDIT-C Score Answer Date of Assessment Author 0 06/15/2024 9:44 AM CDT [employer], System Background * Q1: How often do you have a drink containing alcohol? Answer Date of Assessment Author Never 06/15/2024 9:44 AM CDT [employer], System Background * Q2: How many drinks containing alcohol do you have on a typical day when you are drinking? Answer Date of Assessment Author Patient does not drink 06/15/2024 9:44 AM CDT My chart, System Background * Q3: How often do you have six or more drinks on one occasion? Answer Date of Assessment Author Never 06/15/2024 9:44 AM CDT [employer], [employer] Background documented as of this encounter Miscellaneous Notes * Telephone Encounter - Elana Macedo RN - 06/12/2024 3:26 PM CDT Images from the original note were not included. Semaglutide Dispensed Days Supply Quantity Provider Pharmacy RYBELSUS 7MG TAB 06/12/2024 30 30 Tablet Kendra Chilel, PAC [facility] RYBELSUS 7MG TAB 05/11/2024 30 30 Tablet Fritcher Jana, PAC [facility] documented in this encounter Plan of Treatment Not on file documented as of this encounter Visit Diagnoses Diagnosis Type 2 diabetes mellitus with complication, with long-term current use of insulin (HCC) documented in this encounter Additional Health Concerns Assessment Noted Time PHQ-9 Depression Total Score: 0 01/09/20 21 3:47 PM CDT documented as of this encounter Care Teams Dietetic Technician Registered Relationship Specialty Start Date End Date Kendra Chilel PAC [address] [place] [address] PCP - General Physician Behavioral Health Specialist 08/25/17 documented as of this encounter
--- OUTSIDE RECORDS SUMMARY | 2025-04-27 12:45 | XMS_ITS | Encounter Summary ---
Author Organization [facility] Address [address] [place] [address] Phone Care Team Providers Care Film Or Tape Librarian Name Role Phone Kendra Chilel Primary Care Provider + Reason for Visit * Reason Comments Medication Refill Encounter Details Date Type Department Care Team ([facility] Contact Info) Description 08/18/2022 Refill [facility] Medical Group - [facility] [address] [place] [address] Kendra Chilel PAC [address] [place] [address] Medication Refill Social History Tobacco Use Types [...] Telephone Encounter - Elana Macedo RN - 08/18/2022 11:23 AM CST Reordered 08/14/22 GENIZER OPERATOR documented in this encounter Plan of Treatment Not on file documented as of this encounter Visit Diagnoses Diagnosis Anxiety Anxiety state, unspecified documented in this encounter Additional Health Concerns Assessment Noted Time PHQ-9 Depression Total Score: 0 01/09/20 21 3:47 PM CDT documented as of this encounter Care Teams Film Or Tape Librarian Relationship Specialty Start Date End Date Kendra Chilel PAC [address] [place] [address] PCP - General Physician Model And Mold Maker 08/25/17 documented as of this encounter
--- OUTSIDE RECORDS SUMMARY | 2025-04-27 12:45 | XMS_ITS | Encounter Summary ---
Author Organization [facility] Address [address] [place] [address] Phone Care Team Providers Care Software Architect Name Role Phone Kendra Chilel Primary Care Provider + Reason for Visit * Reason Comments Medication Refill Encounter Details Date Type Department Care Team ([facility] Contact Info) Description 01/08/2025 Refill [facility] Medical Group - [facility] [address] [place] [address] Kendra Chilel PAC [address] [place] [address] Medication Refill Social History Tobacco Use Types Packs/Day Years Used Date Smoking Tobacco: Every Day Cigarettes 1 5 Smokeless Tobacco: Never Alcohol Use Standard Drinks/Week Comments Never 0 (1 standard drink = 0.6 oz pur e alcohol) 2 X a year [facility] Utilities Answer Date Recorded In the past 12 months has [employer], gas, oil, or water [employer] threatened to shut off services in your home? No 12/12/2024 Social Connection and Isolation Panel Answer Date Recorded In a typical week, how many times do you talk on the phone with family, friends, or neighbors? Patient declined 12/13/19 How often do you get togethe r with friends or relatives? Never 12/12/2024 How often do you attend [facility] or holiness services? Never 12/12/2024 Do you belong to any clubs o r organizations such as temple groups, unions, fraternal or athletic groups, or [...] Total Score - Questions 1-9 0 11/26 [facility] - Occupational [...] any time in the past 12 m [facility], were you homeless or living in a prison (including now)? No 12/12/2024 Education Answer Date [...] as of this encounter Visit Diagnoses Diagnosis Vitamin D deficiency Unspecified vitamin D deficiency documented in this encounter Additional Health Concerns Assessment Noted Time PHQ-9 Depression Total Score: 0 12/15/19 25 10:22 AM CDT documented as of this encounter Care Teams Software Architect Relationship Specialty Start Date End Date Kendra Chilel PAC [address] [place] [address] PCP - General Physician Gis Software Developer 08/25/17 documented as of this encounter
--- OUTSIDE RECORDS SUMMARY | 2025-04-27 12:45 | XMS_ITS | Encounter Summary ---
Author Organization [facility] Address [address] [place] [address] Phone Care Team Providers Care Production Technician Name Role Phone Kendra Chilel Primary Care Provider + Reason for Visit * Reason Comments Medication Refill Encounter Details Date Type Department Care Team (Late st Contact Info) Description 11/11/2023 Refill [facility] Medical Group - [facility] [address] [place] [address] Kendra Chilel PAC [address] [place] [address] Medication Refill Social History Tobacco Use Types [...] Telephone Encounter - Elana Macedo RN - 11/12/2023 11:21 AM CST Signed 3 days ago (11/09/2023): HYDROcodone-acetaminophen (NORCO) 10-325 MG Tablet Sig: Take 1 Tablet by mouth every 8 hours as needed for Moderate or more severe pain. Disp: 90 Tablet ? Refills: 0 Signed by: Kendra Chilel PAC [facility] PRINCIPAL SOLUTION SPECIALIST documented in this encounter Plan of Treatment [...] documented as of this encounter Care Teams Production Technician Relationship Specialty Start Date End Date Kendra Chilel PAC [address] [place] [address] PCP - General Physician Linseed Oil Boiler 08/25/17 documented as of this encounter
--- OUTSIDE RECORDS SUMMARY | 2025-04-27 12:46 | XMS_ITS | Encounter Summary ---
Author Organization [facility] Address [address] [place] [address] Phone Care Team Providers Care Factory Representative Name Role Phone Kendra Chilel Primary Care Provider + Reason for Visit * Reason Comments Medication Refill Encounter Details Date Type Department Care Team ([facility] st Contact Info) Description 09/06/2023 Refill [facility] Medical Group - [facility] [address] [place] [address] Kendra Chilel PAC [address] [place] [address] Medication Refill Social History Tobacco Use Types [...] Telephone Encounter - Elana Macedo RN - 09/06/2023 1:56 PM CST Medication failed the protocol, provider to review and approve the medication order if appropriate. Requested Prescriptions Pending Prescriptions Disp Refills insulin glargine (Lantus SoloStar) 100 UNIT/ML Solution Pen-injector [Pharmacy Med Name: LANTUS SOLOSTAR 100 UNITS/ML] 15 mL 3 Sig: INJECT 25 UNITS SUBCUTANEOUSLY IN THE MORNING AND 50-55 UNITS NIGHTLY CHECK BLOOD SUGAR PRIOR TO INJECTION Not Delegated - Insulin Protocol Failed - 09/06/2023 7:49 AM Failed - This refill cannot be delegated Passed - Visit with relevant provider in past 12 months or upcoming 90 days Recent Visits Date Type Provider Dept 08/26/23 Office Visit Kendra Chilel PAC [facility] 08/06/23 Telemedicine Kendra Chilel PAC [facility] 03/05/23 Office Visit Kendra Chilel PAC [facility] 10/23/22 Office Visit Kendra Chilel PAC [facility] Showing recent visits within past 365 days and meeting all other requirements Future Appointments Date Type Provider Dept 12/01/23 Appointment Kendra Chilel PAC [facility] Showing future appointments within next 90 days and meeting all other requirements O COMMUNICATIONS SUPERINTENDENT documented in this encounter Plan of Treatment Not on file documented as of this encounter Visit Diagnoses Not on filedocumented in this encounter Additional Health Concerns Assessment Noted Time PHQ-9 Depression Total Score: 0 01/09/20 21 3:47 PM CDT documented as of this encounter Care Teams Factory Representative Relationship Specialty Start Date End Date Kendra Chilel PAC [address] [place] [address] PCP - General Physician Winder Helper 08/25/17 documented as of this encounter
--- OUTSIDE RECORDS SUMMARY | 2025-04-27 12:46 | XMS_ITS | Encounter Summary ---
Author Organization [facility] Address [address] [place] [address] Phone Care Team Providers Care Hardwood Sawyer Name Role Phone Kendra Chilel Primary Care Provider + Reason for Visit * Reason Comments Medication Refill Encounter Details Date Type Department Care Team (Late st Contact Info) Description 10/29/2021 Refill [facility] Medical Group - [facility] [address] [place] [address] Kendra Chilel PAC [address] [place] [address] Medication Refill Social History Tobacco Use Types [...] Associate degree: occupational, technical, or vocational program 09/28/2021 Sexually Active Control Partners Comments Yes Male [...] have Coronavirus / COVID-19? No / Unsure 09/30/2021 2:35 PM MOTOR TESTER documented as of this encounter Miscellaneous Notes * Telephone Encounter - Autumn Serrato RN - 10/29/2021 9:42 AM CST Medication failed the protocol, provider to review and approve the medication order if appropriate. Requested Prescriptions Pending Prescriptions Disp Refills atorvastatin (LIPITOR) 40 MG Tablet [Pharmacy Med Name: ATORVASTATIN 40MG TABLET] 90 Tablet 1 Sig: TAKE ONE TABLET BY MOUTH DAILY Hmg CoA Reductase Inhibitors Protocol Failed - 10/29/2021 9:30 AM Failed - Lipid panel in past 12 months LDL Date Value Ref Range Status 08/29/2021 49 0 - 130 mg/dL Final HDL CHOLESTEROL Date Value Ref Range Status 07/15/2020 15.2 (L) >40 mg/dL Final CHOLESTEROL Date Value Ref Range Status 07/15/2020 107 <=200 mg/dL Final TRIGLYCERIDES Date Value Ref Range Status 07/15/2020 379 (H) <150 mg/dL Final VLDL Date Value Ref Range Status 07/15/2020 76 (H) 5 - 55 mg/dL Final CHOL/HDL RATIO Date Value Ref Range Status 07/15/2020 7.0 (H) 0.0 - 4.4 Final NON-HDL CHOLESTEROL Date Value Ref Range Status 07/15/2020 91.8 <130 mg/dL Final Passed - No positive test in the past 12 months or most recent test was negative Passed - Visit with relevant provider in past 12 months or upcoming 90 days Recent Visits Date Type Provider Dept 09/30/21 Office Visit Kendra Chilel PAC [facility] 09/10/21 Office Visit Kendra Chilel PAC [facility] 08/27/21 Office Visit Kendra Chilel PAC [facility] 05/20/21 Telemedicine Kendra Chilel PAC [facility] 03/04/21 Telemedicine Kendra Chilel PAC [facility] 01/29/21 Office Visit Kendra Chilel PAC [facility] 01/15/21 Office Visit Kendra Chilel PAC [facility] 01/08/21 Office Visit Kendra Chilel, PAC [facility] Showing recent visits within past 365 days and meeting all other requirements Future Appointments Date Type Provider Dept 11/25/21 Appointment Kendra Chilel PAC [facility] Showing future appointments within next 90 days and meeting all other requirements Passed - No active on record R TESTER documented in this encounter Plan of Treatment Not on file documented as of this encounter Visit Diagnoses Not on filedocumented in this encounter Additional Health Concerns Assessment Noted Time PHQ-9 Depression Total Score: 0 01/09/20 21 3:47 PM CDT documented as of this encounter Care Teams Hardwood Sawyer Relationship Specialty Start Date End Date Kendra Chilel PAC [address] [place] [address] PCP - General Physician Finishing Range Operator 08/25/17 documented as of this encounter
--- OUTSIDE RECORDS SUMMARY | 2025-04-27 12:46 | XMS_ITS | Encounter Summary ---
Author Organization [facility] Address [address] [place] [address] Phone Care Team Providers Care Instrument Installer Name Role Phone Kendra Chilel Primary Care Provider + Reason for Visit * Reason Comments Medication Refill Encounter Details Date Type Department Care Team ([facility] st Contact Info) Description 07/16/2022 Refill [facility] Medical Group - [facility] [address] [place] [address] Kendra Chilel PAC [address] [place] [address] Medication Refill Social History Tobacco Use Types [...] Recorded In the last 10 days, have yo u been in contact with someone who was confirmed or suspected to have Coronavirus/COVID-19? No / Unsure 06/26/2022 10:33 AM CDT documented as of this encounter Plan of Treatment Not on file documented as of this encounter Visit Diagnoses Not on filedocumented in this encounter Additional Health Concerns Assessment Noted Time PHQ-9 Depression Total Score: 0 01/09/20 21 3:47 PM CDT documented as of this encounter Care Teams Instrument Installer Relationship Specialty Start Date End Date Kendra Chilel PAC [address] [place] [address] PCP - General Physician Aircraft Avionics Technician 08/25/17 documented as of this encounter
--- OUTSIDE RECORDS SUMMARY | 2025-04-27 12:46 | XMS_ITS | Encounter Summary ---
Author Organization [facility] Address [address] [place] [address] Phone Care Team Providers Care Operations Controller Name Role Phone Kendra Chilel Primary Care Provider + Reason for Visit * Reason Comments Medication Refill Encounter Details Date Type Department Care Team (Late st Contact Info) Description 12/27/2023 Refill [facility] Medical Group - [facility] [address] [place] [address] Kendra Chilel PAC [address] [place] [address] Medication Refill Social History Tobacco Use Types [...] Telephone Encounter - Elana Macedo RN - 12/28/2023 12:36 PM CDT Medication(s) refilled and signed [facility] Medication Refill Standing Order for Pediatricand Adult Patients. Requested Prescriptions Pending Prescriptions Disp Refills Glucose Blood (OneTouch Ultra) Strip [Pharmacy Med Name: ONE TOUCH ULTRA TEST STRIPS] 300 Strip 2 Sig: USE TO TEST BLOOD SUGAR THREE TIMES A DAY Diabetic Supplies Protocol Passed - 12/27/2023 2:32 PM Passed - Visit with relevant provider in past 6 months Recent Visits Date Type Provider Dept 08/26/23 Office Visit Kendra Chilel PAC [facility] 08/06/23 Telemedicine Kendra Chilel PAC [facility] Showing recent visits within past 182 days and meeting all other requirements Future Appointments Date Type Provider Dept 01/19/24 Appointment Kendra Chilel PAC [facility] Showing future appointments within next 90 days and meeting all other requirements Victoza 18 MG/3ML Solution Pen-injector [Pharmacy Med Name: VICTOZA 3-JOSIE 18 MG/3 ML PEN] 9 mL 2 Sig: INJECT 1.8MG SUBCUTANEOUSLY ONCE DAILY GLP-1 Agonists Protocol Passed - 12/27/2023 2:32 PM Passed - Lipid panel result on file in past 12 months LDL Date Value [...] 03/05/2023 87.2 <130 mg/dL Final Passed - Visit with relevant provider in past 6 months or upcoming 90 days Recent Visits Date Type Provider Dept 08/26/23 Office Visit Kendra Chilel PAC [facility] 08/06/23 Telemedicine Kendra Chilel PAC [facility] Showing recent visits within past 182 days and meeting all other requirements Future Appointments Date Type Provider Dept 01/19/24 Appointment Kendra Chilel PAC [facility] Showing future appointments within next 90 days and meeting all other requirements Passed - HgA1C result on record in past 6 months HGB-A1C Date Value Ref Range Status 08/26/2023 7.8 (H) 4.0 - 6.0 % Final Passed - GFR on record in past 6 months GFR, EST. NONAFRICAN Date Value Ref Range Status 08/26/2023 >60 >=60 Final Refused Prescriptions Disp Refills fenofibrate (TRICOR) 145 MG Tablet [Pharmacy Med Name: FENOFIBRATE 145MG TABLETS] 90 Tablet 3 Sig: TAKE ONE TABLET BY MOUTH DAILY Fibrates Protocol Passed - 12/27/2023 2:32 PM Passed - Visit with relevant provider in past 12 months or upcoming 90 days Recent Visits Date Type Provider Dept 08/26/23 Office Visit Kendra Chilel PAC [facility] 08/06/23 Telemedicine Kendra Chilel PAC [facility] 03/05/23 Office Visit Kendra Chilel PAC [facility] Showing recent visits within past 365 days and meeting all other requirements Future Appointments Date Type Provider Dept 01/19/24 Appointment Kendra Chilel PAC [facility] Showing future appointments within next 90 days and meeting all other requirements Passed - Lipid panel in past 12 [...] Range Status 03/05/2023 87.2 <130 mg/dL Final * Telephone Encounter - Elana Macedo RN - 12/28/2023 12:35 PM CDT Images from the original note were not included. Fenofibrate Dispensed Days Supply Quantity Provider Pharmacy FENOFIBRATE 145MG TAB 12/27/2023 90 90 Tablet Kendra Chilel PAC [facility] FENOFIBRATE 145MG TAB 09/28/2023 90 90 Tablet Kendra Chilel PAC [facility] documented in this encounter Plan of Treatment Not on file documented as of this encounter Visit Diagnoses Diagnosis Type 2 diabetes mellitus with complication, with long-term current use of insulin (HCC) documented in this encounter Additional Health Concerns Assessment Noted Time PHQ-9 Depression Total Score: 0 01/09/20 21 3:47 PM CDT documented as of this encounter Care Teams Operations Controller Relationship Specialty Start Date End Date Kendra Chilel PAC [address] [place] [address] PCP - General Physician Culinary Art Teacher 08/25/17 documented as of this encounter
--- OUTSIDE RECORDS SUMMARY | 2025-04-27 12:46 | XMS_ITS | Encounter Summary ---
Author Organization [facility] Address [address] [place] [address] Phone Care Team Providers Care Cardiology Consultant Name Role Phone Kendra Chilel Primary Care Provider + Reason for Visit * Reason Comments Medication Refill Encounter Details Date Type Department Care Team (Late st Contact Info) Description 12/31/2023 Refill [facility] Medical Group - [facility] [address] [place] [address] Kendra Chilel PAC [address] [place] [address] Medication Refill Social History Tobacco Use Types [...] Telephone Encounter - Elana Macedo RN - 12/31/2023 12:11 PM CDT Medication failed the protocol, provider to review and approve the medication order if appropriate. Requested Prescriptions Pending Prescriptions Disp Refills insulin glargine (Lantus SoloStar) 100 UNIT/ML Solution Pen-injector [Pharmacy Med Name: LANTUS SOLOSTAR 100 UNITS/ML] 15 mL 3 Sig: INJECT 25 UNITS SUBCUTANEOUSLY IN THE MORNING AND 50-55 UNITS NIGTLY CHECK BLOOD SUGAR PRIOR TO INJECTION Not Delegated - Insulin Protocol Failed - 12/31/2023 7:52 AM Failed - This refill cannot be delegated Passed - Visit with relevant provider in past 12 months or upcoming 90 days Recent Visits Date Type Provider Dept 08/26/23 Office Visit Kendra Chilel PAC [facility] 08/06/23 Telemedicine Kendra Chilel PAC [facility] 03/05/23 Office Visit Kendra Chilel PAC [facility] Showing recent visits within past 365 days and meeting all other requirements Future Appointments Date Type Provider Dept 01/19/24 Appointment Kendra Chilel PAC [facility] Showing future appointments within next 90 days and meeting all other requirements documented in this encounter Plan of Treatment Not on file documented as of this encounter Visit Diagnoses Not on filedocumented in this encounter Additional Health Concerns Assessment Noted Time PHQ-9 Depression Total Score: 0 01/09/20 21 3:47 PM CDT documented as of this encounter Care Teams Cardiology Consultant Relationship Specialty Start Date End Date Kendra Chilel PAC [address] [place] [address] PCP - General Physician Correctional Food Service Supervisor 08/25/17 documented as of this encounter
--- OUTSIDE RECORDS SUMMARY | 2025-04-27 12:46 | XMS_ITS | Encounter Summary ---
Author Organization [facility] Address [address] [place] [address] Phone Care Team Providers Care Tooth Grinder Name Role Phone Kendra Chilel Primary Care Provider + Reason for Visit * Reason Comments Medication Refill Encounter Details Date Type Department Care Team (Late st Contact Info) Description 01/09/2024 Refill [facility] Medical [facility] - [facility] [address] [place] [address] Kendra Chilel PAC [address] [place] [address] Medication Refill Social History Tobacco Use Types [...] Encounter - Elana Macedo RN - 01/10/2024 9:03 AM CDT Images from the original note were not included. metFORMIN HCl Dispensed Days Supply Quantity Provider Pharmacy METFORMIN ER 750MG GP TAB 01/09/2024 90 180 Tablet Kendra Chilel PAC [facility] METFORMIN ER 750MG GP TAB 10/12/2023 90 180 Tablet Kendra Chilel PAC [facility] documented in this encounter Plan of Treatment Not on file documented as of this encounter Visit Diagnoses Not on filedocumented in this encounter Additional Health Concerns Assessment Noted Time PHQ-9 Depression Total Score: 0 01/09/20 21 3:47 PM CDT documented as of this encounter Care Teams Tooth Grinder Relationship Specialty Start Date End Date Kendra Chilel PAC [address] [place] [address] PCP - General Physician Trim Operator 08/25/17 documented as of this encounter
--- OUTSIDE RECORDS SUMMARY | 2025-04-27 12:46 | XMS_ITS | Encounter Summary ---
Author Organization [facility] Address [address] [place] [address] Phone Care Team Providers Care Escape Wheel Tooth Cutter Name Role Phone Kendra Chilel Primary Care Provider + Reason for Visit * Reason Comments Medication Refill Encounter Details Date Type Department Care Team ([facility] st Contact Info) Description 07/18/2022 Refill [facility] Medical Group - [facility] [address] [place] [address] Kendra Chilel PAC [address] [place] [address] Medication Refill Social History Tobacco Use Types [...] In the last 10 days, have staci sanchez been in contact with someone who was confirmed or suspected to have Coronavirus/COVID-19? No / Unsure 06/26/2022 10:33 AM CDT documented as of this encounter Miscellaneous Notes * Telephone Encounter - Elana Macedo RN - 07/20/2022 8:55 AM CDT Images from the original note were not included. tiZANidine HCl Dispensed Days Supply Quantity Provider Pharmacy TIZANIDINE 4MG TAB 07/18/2022 15 60 Tablet GREGORYTCHER,KENDRA [facility] TIZANIDINE HYDROCHLORIDE 4MG TAB 06/18/2022 15 60 Tablet FRITCHER,KENDRA [facility] TIZANIDINE HYDROCHLORIDE 4MG TAB 05/19/2022 15 60 Tablet FRITCHER,KENDRA [facility] TIZANIDINE HYDROCHLORIDE 4MG TAB 04/16/2022 15 60 Tablet FRITCHER,KENDRA [facility] documented in this encounter Plan of Treatment Not on file documented as of this encounter Visit Diagnoses Not on filedocumented in this encounter Additional Health Concerns Assessment Noted Time PHQ-9 Depression Total Score: 0 01/09/20 21 3:47 PM CDT documented as of this encounter Care Teams Escape Wheel Tooth Cutter Relationship Specialty Start Date End Date Kendra Chilel PAC [address] [place] [address] PCP - General Physician Fusing Machine Tender 08/25/17 documented as of this encounter
--- OUTSIDE RECORDS SUMMARY | 2025-04-27 12:46 | XMS_ITS | Encounter Summary ---
Author Organization [facility] Address [address] [place] [address] Phone Care Team Providers Care Dependency Counselor Name Role Phone Kendra Chilel Primary Care Provider + Reason for Visit * Reason Comments Medication Refill Encounter Details Date Type Department Care Team ([facility] st Contact Info) Description 12/20/[address] [facility] - [facility] [address] [place] [address] Kendra Chilel PAC [address] [place] [address] Medication Refill Social History Tobacco Use Types [...] Telephone Encounter - Elana Macedo RN - 12/20/2023 3:37 PM CDT Medication failed the protocol, provider to review and approve the medication order if appropriate. Requested Prescriptions Pending Prescriptions Disp Refills acyclovir (ZOVIRAX) 400 MG Tablet [Pharmacy Med Name: ACYCLOVIR 400 MG TABLET] 15 Tablet 0 Sig: TAKE ONE TABLET BY MOUTH THREE TIMES A DAY FOR FIVE DAYS Not Delegated - Herpes Agents Protocol Failed - 12/20/2023 12:00 PM Failed - This refill cannot be delegated Failed - Active on medication list Passed - Visit with relevant provider in past 12 months or upcoming 90 days Recent Visits Date Type Provider Dept 08/26/23 Office Visit Kendra Chilel PAC [facility] 08/06/23 Telemedicine Kendra Chilel PAC [facility] 03/05/23 Office Visit Kendra Chilel PAC [facility] [...] Date End Date Kendra Chilel PAC [address] [place] [address] PCP - General Physician Labor Contractor 08/25/17 documented as of this encounter
--- OUTSIDE RECORDS SUMMARY | 2025-04-27 12:46 | XMS_ITS | Encounter Summary ---
Author Organization [facility] Address [address] [place] [address] Phone Care Team Providers Care Ocular Care Technician Name Role Phone Kendra Chilel Primary Care Provider + Reason for Visit * Reason Onset Date Comments High Blood Sugar 08/26/2021 Encounter Details Date Type Department Care Team (Late st Contact Info) Description 08/26/2021 Nurse Triage [facility] Medical [facility] - [facility] [address] [place] [address] Kendra Chilel PAC [address] [place] [address] High Blood Sugar Social History Tobacco Use Types Packs/Day Years [...] have Coronavirus / COVID-19? No / Unsure 08/27/2021 8:50 AM JIG GRINDER documented as of this encounter Miscellaneous Notes * Telephone Encounter - Maya Aldana RN - 08/26/2021 12:27 PM CST Called and spoke with patient per PCP regarding elevated blood sugar if having symptoms of hyperglycemia such as weakness, blurred vision, abdominal pain vomiting go to ER. Patient denies symptoms states took blood sugar at noon and it was 256 after taking her Humalog 30 units this morning. Can take humolag in chart 30 units with meals. Avoid sugar drinks Scheduled EOV for 08/27/21 at 1015 with PCP GRINDER * Telephone Encounter - Kendra Chilel PAC - 08/26/2021 11:54 AM JIG GRINDER If having symptoms of hyperglycemia such as weakness, blurred vision, abdominal pain vomiting go toER Can take humolag in chart 30 units with meals. Avoid sugar drinks Needs OV, extended. GRINDER * Telephone Encounter - Maya Aldana RN - 08/26/2021 9:50 AM CST Please Advise appointment to discuss elevated blood sugars and insulin? Thank you, Maya GIBSON GRINDER * Telephone Encounter - Maddy Raymond RN - 08/26/2021 9:37 AM CST SITUATION: Elevated sugars BACKGROUND: Patient reports high running sugars for past 4 days pr thinks her fast acting insulin is not working. She checked her sugar this morning. It's been in the 400s. It's been high for a cpl weeks now. ASSESSMENT: Blood sugar yesterday before bed 380 took 66 units last night Blood sugar this am 420 08/26 8 am One hour later it was 478 Breakfast was not eating but did have [employer] with sugar and cream Symptom Description / Location: blurred vision at times States She would like to take additional insulin Answering all questions approximately Pain (0-10): denies Temp: denies Treatment / Response: insulin victoza1.8 activity 36 units of Humalog at 8 am LMP / / : NA RECOMMENDATION: See care advice and disposition for Guideline Please advice patient is asking to take additional insulin DISCUSS with PCP and CALLBACK by NURSE WITHIN 1 HOUR. Karie Bella [phone] Patient verbalized understanding, and agreeable to recommendations First positive answer recorded, all responses to prior questions were negative. If symptoms increase, change or if new symptoms develop, call your HCP or call back. Recommendations were based on caller information and is not a diagnosis. Verified and reviewed all triage information with caller. Reason for Disposition Blood glucose > 400 mg/dL (22.2 mmol/L) Protocols used: DIABETES - HIGH BLOOD SUGAR-A-OH GRINDER documented in this encounter Plan of Treatment Not on file documented as of this encounter Visit Diagnoses Not on filedocumented in this encounter Additional Health Concerns Infection Onset Date Last Indicated Resolved Time COVID - 19 09/30/2021 09/30/2021 10/20/2021 12:1 6 AM JIG GRINDER Assessment Noted Time PHQ-9 Depression Total Score: 0 01/09/20 21 3:47 PM CDT documented as of this encounter Care Teams Ocular Care Technician Relationship Specialty Start Date End Date Kendra Chilel PAC [address] [place] [address] PCP - General Physician Bottle House Cleaners Supervisor 08/25/17 documented as of this encounter
--- OUTSIDE RECORDS SUMMARY | 2025-04-27 12:46 | XMS_ITS | Encounter Summary ---
Author Organization [facility] Address [address] [place] [address] Phone Care Team Providers Care Shipping And Receiving Specialist Name Role Phone Kendra Chilel Primary Care Provider + Reason for Visit * Reason Comments Medication Refill Encounter Details Date Type Department Care Team (Late st Contact Info) Description 09/28/2020 Refill [facility] Medical Group - [facility] [address] [place] [address] Kendra Chilel PAC [address] [place] [address] Medication Refill Social History Tobacco Use Types [...] Recorded Total Score - Questions 1-9 0 01/2020 Education Answer Date Recorded What is the [...] have Coronavirus / COVID-19? No / Unsure 08/29/2020 9:15 AM ENGAGEMENT MGR documented as of this encounter Miscellaneous Notes * Telephone Encounter - Maria E Gonzalez RN - 09/28/2020 12:44 PM CST Medication failed the protocol, provider to review and approve the medication order if appropriate. Requested Prescriptions Pending Prescriptions Disp Refills fenofibrate (TRICOR) 145 MG Tablet [Pharmacy Med Name: FENOFIBRATE 145 MG TABLET] 90 Tab 3 Sig: TAKE ONE TABLET BY MOUTH DAILY Cardiovascular: Antilipid - Fibric Acid Derivatives Passed - 09/28/2020 12:21 PM Passed - Valid encounter within last 12 months Past Office Visits Recent Outpatient Visits 1 month ago Well woman exam [facility] Kendra Galvan PAC 2 months ago Type 2 diabetes mellitus with complication, with long-term current use of insulin ([facility]) [facility] Kendra Vieyra PAC 8 months ago Type 2 diabetes mellitus with complication, with long-term current use of insulin ([facility]) [facility] Kendra Vieyra PAC 8 months ago Cough [facility] Kendra Vieyra PAC 9 months ago Sinusitis, unspecified chronicity, unspecified location [facility] Kendra Vieyra PAC Upcoming Appointments Future Appointments In 1 week Kendra Chilel PAC [facility] 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[employer] - Recent and Past Visits Recent Visits Date Type Provider Dept 08/01/20 Office Visit Kendra Chilel PAC [facility] 07/15/20 Office Visit Kendra Chilel PAC [facility] 01/29/20 Office Visit Kendra Chilel PAC [facility] 01/19/20 Telemedicine Kendra Chilel PAC [facility] 12/26/19 Telemedicine Kendra Chilel PAC [facility] 07/11/19 Office Visit Kendra Chilel PAC [facility] Showing recent visits within past 460 days with a meds authorizing provider and meeting all other requirements Future Appointments Date Type Provider Dept 10/10/20 Appointment Kendra Chilel PAC [facility] Showing future appointments within next 90 days with a meds authorizing provider and meeting all other requirements buPROPion (WELLBUTRIN) 300 MG TABLET SR 24 HR XL tablet [Pharmacy Med Name: BUPROPION HCL XL 300 MGTABLET] 30 Tab 1 Sig: TAKE ONE TABLET BY MOUTH EVERY MORNING Not Delegated - Psychiatry: Antidepressants Failed - 09/28/2020 12:21 PM Failed - This refill cannot be delegated Passed - Valid encounter within last 12 months Past Office Visits Recent Outpatient Visits 1 month ago Well woman exam [facility] Kendra Galvan PAC 2 months ago Type 2 diabetes mellitus with complication, with long-term current use of insulin ([facility]) [facility] Kendra Galvan PAC 8 months ago Type 2 diabetes mellitus with complication, with long-term current use of insulin ([facility]) [facility] Kendra Galvan PAC 8 months ago Cough [facility] Kendra Galvan PAC 9 months ago Sinusitis, unspecified chronicity, unspecified [facility] Upcoming Appointments Future Appointments In 1 week Kendra Chilel PAC [facility] Sy [facility] 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[employer] - Recent and Past Visits Recent Visits Date Type Provider Dept 08/01/20 Office Visit Kendra Chilel PAC [facility] 07/15/20 Office Visit Kendra Chilel PAC [facility] 01/29/20 Office Visit Kendra Chilel PAC [facility] 01/19/20 Telemedicine Kendra Chilel PAC [facility] 12/26/19 Telemedicine Kendra Chilel PAC [facility] 07/11/19 Office Visit Kendra Chilel PAC [facility] Showing recent visits within past 460 days with a meds authorizing provider and meeting all other requirements Future Appointments Date Type Provider Dept 10/10/20 Appointment Kendra Chilel PAC [facility] Showing future appointments within next 90 days with a meds authorizing provider and meeting all other requirements GEMENT MGR documented in this encounter Plan of Treatment Not on file documented as of this encounter Visit Diagnoses Not on filedocumented in this encounter Additional Health Concerns Infection Onset Date Last Indicated Resolved Time COVID - 19 10/29/2020 10/29/2020 11/01/2020 8:13 AM ENGAGEMENT MGR COVID - 19 01/08/2021 01/09/2021 01/11/2021 5:59 AM CDT COVID - 19 02/25/2021 02/28/2021 03/17/2021 12:1 6 AM CDT COVID - 19 09/30/2021 09/30/2021 10/20/2021 12:1 6 AM ENGAGEMENT MGR Assessment Noted Time PHQ-9 Depression Total Score: 0 08/01/20 10:14 AM ENGAGEMENT MGR documented as of this encounter Care Teams Shipping And Receiving Specialist Relationship Specialty Start Date End Date Kendra Chilel PAC [address] [place] [address] PCP - General Physician Oil Well Service Operator Helper 08/25/17 documented as of this encounter
[2025-04-27 12:58] LABS: Hematocrit 40.5 % (35.0-49.0); Hemoglobin 12.9 g/dL (12.0-15.0); Immature Granulocyte Percent A 0.3 % (0.0-0.0); Lymphocytes Absolute Auto 1.78 K/mm3 (1.10-4.50); Mean Corpuscular HGB Conc 31.9 g/dL (32-36); Mean Corpuscular Hemoglobin 29.3 pg (27.0-31.0); Mean Corpuscular Volume 92.0 fL (78.0-102.0); Nucleated Red Blood Cells Absolute Auto 0.00 K/mm3 (0.00-0.00); Nucleated Red Blood Cells Perc 0.0 % (0-0.0); Platelet Count Result 186 K/mm3 (150-420); Red Blood Count 4.40 M/mm3 (4.20-5.40); White Blood Count 7.0 K/mm3 (4.8-10.8)
[2025-04-27 13:19] LABS: MALB Creatinine Ratio 34.3 mg/g (0-30)
[2025-04-27 14:16] LABS: Alanine Aminotransferase 30 U/L (6-35); Albumin Level 4.6 g/dL (3.5-5.1); Alkaline Phosphatase 55 U/L (38-126); Anion Gap 7 mmol/L (4-12); Aspartate Amino Transferase 43 U/L (14-36); Bilirubin,Total 0.8 mg/dL (0.2-1.3); Blood Urea Nitrogen 18 mg/dL (7-17); Calcium 9.0 mg/dL (8.4-10.2); Carbon Dioxide 21 mmol/L (22-30); Chloride 110 mmol/L (98-107); Estimated Glomerular Filt Rate > 60; Glucose 166 mg/dL (65-110); Lipase 268 U/L (23-300); Magnesium 1.5 mg/dL (1.6-2.3); Osmolality Calculated 291 mOsm/kg (285-295); Potassium 5.0 mmol/L (3.4-5.0); Sodium 138 mmol/L (137-145); Total Protein 7.2 g/dL (6.3-8.2)
[2025-04-27 14:20] LABS: Hemoglobin A1C 7.1 % (<5.7)
[2025-04-27 15:34] LABS: Add Urine Microscopic? YES; Appearance Urine Clear (Clear); Glucose Urine UA Trace (Negative); Leukocyte Esterase Ur Negative LEU/UL (Negative); Nitrate Urine Negative (Negative); Specific Grav Ur 1.015 (1.010-1.020)
== END 2025-04-27 12:37 | disposition home or self-care (01) ==
LOC: CHSLAB 12:42
PROVIDERS: PCP Physician Assistant; Visit Provider Physician Assistant
DX: R10.84 Generalized abdominal pain (principal); E11.8 Type 2 diabetes mellitus with unspecified complications; Z79.4 Long term (current) use of insulin; R79.0 Abnormal level of blood mineral; E55.9 Vitamin D deficiency, unspecified; R39.89 Other symptoms and signs involving the genitourinary system
CPT/HCPCS: 36415; 80053; 81001; 82043; 82306; 83036; 83690; 83735; 85025

== ENCOUNTER 2025-08-12 | Emergency (ER) | payer OTHER, SELFPAY ==
[2025-08-12] VITALS (12 sets, daily range): BP systolic 148–181; BP diastolic 71–101; PULSE 68–96; RESP 10–22; TEMP 36.4; O2SAT 94–100
--- NOTE | ~2025-08-12 | CT_ITS ---
EXAMINATION: CT abdomen pelvis wo con DATE: 08/12/2025 00:40 INDICATION: Left abdominal pain. TECHNIQUE: Computed tomography (CT) of the abdomen and pelvis was performed without intravenous contrast. Automated exposure control and iterative reconstruction technique were employed. The dose-length product was 1359.50 mGy-cm. COMPARISON: None. FINDINGS: The visualized portions of the lung bases demonstrate minimal atelectasis. No pleural effusion. The heart size is normal. There are coronary artery calcifications. No pericardial effusion. There is diffuse hepatic steatosis. There are gallstones in the gallbladder, which is normal in size. Ca lcifications in the spleen are consistent with old granulomatous disease. There is fat stranding around the pancreas, consistent with acute interstitial pancreatitis. The adrenal glands are normal. There is cortical thinning of the kidneys. There is diverticulosis of the colon without evidence of diver ticulitis. The appendix is normal. There are no dilated loops of bowel. There are no pathologically enlarged lymph nodes. There is no free intraperitoneal fluid. There is moderate thoracic spondylosis and mild lumbar spondylosis. IMPRESSION: 1. Acute interstitial pancreatitis. 2. Diffuse hepatic steatosis. 3. Cholelithiasis. Reviewed, dictated and finalized at location E. 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
--- NOTE | 2025-08-12 00:02 | ED.ABDPAIN ---
HPI - Abdominal Pain General Chief Complaint: Abdominal Pain Stated Complaint: abdominal pain Time Seen by Provider: 08/12/25 00:01 Source: patient Mode of arrival: ambulatory Limitations: no limitations History of Present Illness HPI narrative: Patient is a 50-year-old female with a left-sided abdominal pain for the last 2 days. She has associated nausea vomiting and diarrhea. She had a normal bowel movement yesterday. No bleeding. She is allergic to contrast IV dye. She is diabetic 2. Insulin using. MD elicited complaint: abdominal pain Pertinent past history: other (Diabetes 2, hypertension, hyperlipidemia) Onset (ago): day(s) (2) Pain Consistency: constant Location: diffuse, LUQ and LLQ Severity: severe Pain scale (0-10): 8 Quality: cramping, stabbing and sharp Radiation: RLQ Migration to: no migration Exacerbating factors: nothing Relieving factors: nothing Context: confirms other (Patient is having abdominal pain with nausea vomiting and diarrhea for the past 2 days) Associated symptoms: nausea, vomiting and diarrhea Treatments prior to arrival: other (None) Related Data Home Medications ?Medication ?Instructions ?Recorded ?Confirmed ?Last Taken ?Type atenolol 50 mg tablet 50 mg PO DAILY 09/20/19 05/24/22 Unknown History atorvastatin 40 mg tablet 40 mg PO DAILY 09/20/19 05/24/22 Unknown History diazepam 5 mg tablet 5 mg PO DAILY PRN Anxiety 09/20/19 05/24/22 Unknown History fenofibrate nanocrystallized 145 145 mg PO DAILY 09/20/19 05/24/22 Unknown History mg tablet gabapentin 300 mg capsule 300 mg PO BID 09/20/19 05/24/22 Unknown History insulin glargine 100 unit/mL (3 35 unit subcut QAM 09/20/19 05/24/22 Unknown History mL) subcutaneous pen (Basaglar KwikPen U-100 Insulin) insulin glargine 100 unit/mL (3 40 unit subcut HS 09/20/19 05/24/22 Unknown History mL) subcutaneous pen (Basaglar KwikPen U-100 Insulin) insulin glulisine U-100 100 10 - 30 sliding scale dose subcut 09/20/19 05/24/22 Unknown History unit/mL subcutaneous solution [facility] (Apidra U-100 Insulin) losartan 100 mg tablet 100 mg PO DAILY 09/20/19 05/24/22 Unknown History triamterene 75 1 tablet PO DAILY 09/20/19 05/24/22 Unknown History mg-hydrochlorothiazide 50 mg tablet Allergies Allergy/AdvReac Type Severity Reaction Status Date / Time tobramycin Allergy Unknown SWELLING Verified 08/12/25 00:11 FROM EYE DROPS sulfamethoxazole (From Allergy Unknown Verified 08/12/25 00:11 Bactrim) trimethoprim (From Bactrim) Allergy Unknown Verified 08/12/25 00:11 Review of Systems Review of Systems: All systems reviewed & are unremarkable except as noted in HPI and below Constitutional: Constitutional: Reports no additional constitutional complaints Eyes: Eyes: Reports no additional eye complaints ENT: Reports system reviewed and no additional complaints, except as documented Cardiovascular: Cardiovascular: Reports no additional cardiovascular complaints Respiratory: Respiratory: Reports no additional respiratory complaints Gastrointestinal: Gastrointestinal: Reports no additional gastrointestinal complaints Genitourinary: Genitourinary: Reports no additional female genitourinary complaints Musculoskeletal: Musculoskeletal: Reports no additional musculoskeletal complaints Integumentary/Breasts: Skin/Breast: Reports system reviewed and no additional complaints, except as docu Neurologic: Reports system reviewed and no additional complaints, except as documented Psychiatric: Psychiatric: Reports no additional psychiatric complaints Endocrine: Endocrine: Reports no additional endocrine complaints Hematologic/Lymphatic: Hematologic/Lymphatic: Reports no additional hematologic/lymphatic complaints Allergic/Immunologic: Allergic/Immunologic: Reports no additional allergic/immunologic complaints [facility] Past Medical History Medical History (Updated 08/12/25 @ 02:13 by Timur Rosenberg MD) Hypertension Diabetic neuropathy associated with diabetes mellitus due to underlying condition Diabetes mellitus Exam Const: General: ill appearing Nutritional Appearance: well nourished Orientation/consciousness: patient oriented x3 Limitations: no limitations HENMT: Head: normal to inspection Ears: external ears normal Face/Nose/Sinus: Normal external nose present Eyes: Conjunctivae: conjunctivae normal Pupils: Equal, round and reactive pupils present EOM: EOMs intact bilaterally Neck: Neck: normal visual inspection Chest: Chest palpation & inspection: normal inspection of the chest Resp: Effort & Inspection: normal respiratory effort and not labored Auscultation: clear to auscultation bilaterally and no crackles Cardio: Rate: regular rate, not bradycardic and not tachycardic Rhythm: regular rhythm and regular rhythm Heart sounds: no murmurs GI: Inspection: non-distended GI Palp: Yes Soft to palpation, Yes Tenderness to palpation present (GI) (Diffuse but more so on the left side of the abdomen), Yes Guarding due to palpation present (GI), No Rigid due to palpation, No Hernia present, No Palpable mass present and Yes Rebound tenderness present Auscultation: bowels sounds not normal and Hypoactive bowel sounds present : General: Yes bladder normal to palpation Back/Spine/Pelvis: Back: no CVA tenderness Skin: General skin exam: normal color Rashes: no rashes Wounds: no wounds Neuro: General: patient oriented x3, moves all extremities and no meningeal signs Cranial nerves: Yes Nystagmus not present Speech: normal speech Gait exam (Neuro): Normal gait present Extrem: General: normal to inspection, no clubbing, cyanosis or edema and no pedal edema Psych: Mental Status: mental status grossly normal Affect: normal affect Attitude: cooperative Course Vital Signs Vital signs: Vital Signs Temperature 36.4 C 08/12/25 00:00 Pulse Rate 93 08/12/25 00:00 Respiratory Rate 22 H 08/12/25 00:00 Blood Pressure 154/101 H 08/12/25 00:00 Pulse Oximetry 94 08/12/25 00:00 Oxygen Delivery Room Air 08/12/25 00:00 Temperature 36.4 C 08/12/25 00:00 Pulse Rate 93 08/12/25 00:00 Respiratory Rate 22 H 08/12/25 00:00 Blood Pressure 154/101 H 08/12/25 00:00 Pulse Oximetry 94 08/12/25 00:00 Oxygen Delivery Room Air 08/12/25 00:00 MDM - Abdominal Pain MDM Narrative Medical decision making narrative: Patient is a 50-year-old female with left-sided abdominal pain for the past 2 days. She has associated nausea vomiting and diarrhea. We will do a GI workup at this time. Lab Data Attestation: I reviewed the patient's lab results. 08/12/25 01:05 08/12/25 01:05 Labs: Lab Results 08/12/25 08/12/25 Range/Units 01:04 01:05 WBC 4.9 (4.8-10.8) K/mm3 RBC 2.44 L (4.20-5.40) M/mm3 Hgb 7.1 L (12.0-15.0) g/dL Hct 22.8 L (35.0-49.0) % MCV 93.4 (78.0-102.0) fL MCH 29.1 (27.0-31.0) pg MCHC 31.1 L (32-36) g/dL RDW 12.7 (11.6-14.4) % Plt Count 90 L (150-420) K/mm3 MPV 12.4 H (9.2-11.8) fl Immature Gran % (Auto) 0.2 H (0.0-0.0) % Neut % (Auto) 75.9 H (50.0-70.0) % Lymph % (Auto) 18.0 (18.0-42.0) % Cannon % (Auto) 5.3 (2.0-11.0) % Eos % (Auto) 0.4 L (1.0-6.0) % Baso % (Auto) 0.2 (0.0-1.0) % Lymph # (Auto) 0.88 L (1.10-4.50) K/mm3 Cannon # (Auto) 0.26 (0.10-0.90) K/mm3 Eos # (Auto) 0.02 (0.02-0.50) K/mm3 Baso # (Auto) 0.01 (0.00-0.10) K/mm3 Abs Immat Gran (auto) 0.01 H (0.00-0.00) K/mm3 Absolute Neuts (auto) 3.70 (1.70-7.20) K/mm3 Absolute Nucleated RBC 0.00 (0.00-0.00) K/mm3 Nucleated RBC % 0.0 (0-0.0) % % Immature Plt Fraction 3.0 (1.0-7.0) % PT 15.5 H (9.50-12.1) Seconds INR 1.5 APTT 32.5 H (23.9-30.70) Sec Sodium 145 (137-145) mmol/L Potassium < 2.0 L* (3.4-5.0) mmol/L Chloride 127 H (98-107) mmol/L Carbon Dioxide 12 L (22-30) mmol/L Anion Gap 6 (4-12) mmol/L BUN 11 D (7-17) mg/dL Creatinine 0.43 L (0.7-1.0) mg/dL Estim Creat Clear Calc 159 ml/min Estimated GFR > 60 (59 - ) Glucose 114 H (65-110) mg/dL Calculated Osmolality 300 H (285-295) mOsm/kg Lactic Acid < 0.5 L (0.7-2.0) mmol/L Calcium < 5.0 L* (8.4-10.2) mg/dL Magnesium Pending Total Bilirubin 1.0 (0.2-1.3) mg/dL AST 19 (14-36) U/L ALT 16 (6-35) U/L Alkaline Phosphatase 32 L (38-126) U/L Total Protein 3.6 L (6.3-8.2) g/dL Albumin 1.8 L (3.5-5.1) g/dL Lipase 7349 H (23-300) U/L Imaging Data Attestation: I personally reviewed and interpreted this imaging study as follows: Radiologist's impression: CT scan of the abdomen and pelvis without contrast shows acute pancreatitis and multiple small gallstones with a partially contracted gallbladder and a normal biliary duct ECG Data EKG #1: Attestation: I personally reviewed and interpreted this ECG as follows: ECG completion date: 08/12/25 ECG completion time: 02:11 normal rate, sinus rhythm, no ectopy, no ST changes, normal QRS, normal QT, NL axis and no acute changes Critical Care Time Critical Care Time Critical Care Time: Yes Total Critical Care Time: 45 Discharge Plan Discharge Clinical Impression: Hypocalcemia, Hypokalemia, Metabolic acidosis, Hyperchloremia, Thrombocytopenia Pancreatitis Qualifiers: Chronicity: acute Pancreatitis type: biliary Acute pancreatitis complication: unspecified Qualified Code(s): K85.10 - Biliary acute pancreatitis without necrosis or infection Anemia Qualifiers: Anemia type: other cause Other causes of anemia: other cause, not classified Qualified Code(s): D64.89 - Other specified anemias Diabetes mellitus Qualifiers: Diabetes mellitus type: type 2, without complications, in remission Qualified Code(s): E11.A - Type 2 diabetes mellitus without complications in remission Patient Disposition: Acute Care Hospital Condition: Serious Patient Language: Ukrainian Prescriptions: No Action atorvastatin 40 mg tablet 40 mg PO DAILY gabapentin 300 mg capsule 300 mg PO BID triamterene-hydrochlorothiazid 75-50 mg tablet 1 tablet PO DAILY losartan 100 mg tablet 100 mg PO DAILY atenolol 50 mg tablet 50 mg PO DAILY diazepam 5 mg tablet 5 mg PO DAILY PRN (Reason: Anxiety) Apidra U-100 Insulin 100 unit/mL solution 10 - 30 sliding scale dose subcut [facility] fenofibrate nanocrystallized 145 mg tablet 145 mg PO DAILY insulin glargine [Basaglar KwikPen U-100 Insulin] 100 unit/mL (3 mL) insulin pen 35 unit SUBCUT QAM insulin glargine [Basaglar KwikPen U-100 Insulin] 100 unit/mL (3 mL) insulin pen 40 unit SUBCUT HS amoxicillin-pot clavulanate 875-125 mg tablet 1 tablet PO Q12H Qty: 10 0RF ciprofloxacin HCl 0.3 % drops 1 drp LEFT EYE Q4H 5 Days Qty: 10 0RF Rx Instructions: administer while awake Follow-up/Referrals: Getachew,CARMEL Arreguin [Primary Care Provider, Unknown] Time of Disposition: 02:06
--- NOTE | 2025-08-12 00:06 | PC.NURSE ---
DR HORTON AT THE BEDSIDE
[2025-08-12] MEDS: MORPHINE SULFATE (*CRX) 4 MG/ML INJ IV PUSH (00:19)
[2025-08-12] MEDS: SODIUM CHLORIDE 0.9% IV 1,000 ML 999 ML IV CONT ×2 (00:19→01:58)
[2025-08-12] MEDS: ONDANSETRON INJ 4 MG/2 ML VIAL IV PUSH ×2 (00:19→03:55)
--- NOTE | 2025-08-12 00:23 | PC.NURSE ---
PATIENT BEING TRANSPORTED TO CT VIA STRETCHER. PATIENT HAS EMESIS BAG WITH HER. PATIENT KEEPS RETCHING.
--- OUTSIDE RECORDS SUMMARY | 2025-08-12 00:35 | XMS_ITS | Clinical Summary ---
Author Organization [facility] Address [address] [place] [address] Care Team Providers Care Assistant Mechanic Name Role Phone Kendra Chilel PA-C Primary Care Provider Encounters Date Type Department Care Team Description 06/07/2025 7:43 AM CDT - 06/07/2025 11:59 PM CDT Hospital Encounter [facility] [address] [place] [address] Kendra Chilel PA-C Discharge Disposition: Home or Self Care (Routine Discharge) 06/07/2025 Travel from Last 3 Months Social History Tobacco Use Types Packs/Day Years Used Date Smoking Tobacco: Never Assessed Comments Unknown Sex and Gender Information Value Date Recorded Sex Assigned at Female 06/07/2025 7:41 AM CDT Legal Sex Female 7:22 PM CDT Gender Identity Not on file Sexual Orientation Not on file Plan of Treatment Health Maintenance Due Date Last Done Comments Colorectal Cancer Screening Colonoscopy (10 Years) 1976 Annual Physical 1979 Hepatitis B Vaccines (1 of 3 - 19+ 3-dose series) 1995 Cervical Cancer Screening Pap Smear (Age 30 to 64) Every 3 Years 08/01/2023 08/01/2020, 08/01/2020 COVID-19 Vaccine ( season) 2025 05/20/2021 Influenza Adult (#1) 2025 06/16/2024, 08/26/2023, 10/23/2022, Additional history exists Cervical Cancer Screening Pap with HPV Testing (Age 30 to 64) Every 5 Years 08/01/2025 08/01/2020 Cervical Cancer Screening with HPV 08/01/2025 Mammogram Screening 01/12/2027 01/12/2025, 08/29/2020, 08/29/2020 DTaP, Tdap and Td Vaccines (2 - Td or Tdap) 12/10/2029 12/11/2019 Pneumococcal Vaccine: Pediatrics (0 to 5 Years) and At-Risk Patients (6 to 49 Years) Aged Out 10/23/2022, 09/27/2009 No longer eligibl e based on patient's age to complete this topic Hepatitis C Completed 03/05/2023 Hepatitis A Vaccines Aged Out No long er eligible based on patient's age to complete this topic Meningococcal B Vaccine Aged Out No l onger eligible based on patient's age to complete this topic Meningococcal Vaccine Aged Out No aroldo aaliyah eligible based on patient's age to complete this topic RSV Immunizations Under 20 Months Aged Out No longer eligible based on patient's age to complete this topic Procedures Procedure Name Priority Date/Time Associated Diagnosis Comments US ABD COMPLETE Routine 06/07/2025 8:38 AM CDT Abdominal pain, RUQ Generalized abdominal pain from Last 3 Months Results * US ABD COMPLETE (06/07/2025 8:38 AM CDT) Anatomical Region Laterality Modality Abdomen Ultrasound 06/07/2025 9:21 AM CDT Impressions 06/07/2025 9:25 AM CDT IMPRESSION: 1. Cholelithiasis. 2. Hepatic steatosis. Ordered By: KENDRA CHILEL Interpreted By: Dc Pal MD, 06/07/2025 9:21 AM Narrative 06/07/2025 9:25 AM CDT [address] [place] [address] Examination: Complete abdominal ultrasound. Exam time: 0816 hours. Clinical history: Generalized pain. Comparison: None. Technique: Grayscale and color Doppler images including spectral analysis. Findings: There are multiple shadowing bright reflectors in the gallbladder, compatible with gallstones. Wall thickness appears normal. There is no pericholecystic fluid. Sonographic Shepherd sign is reported as negative. There is no intra or extrahepatic biliary ductal dilatation. The common duct measures 4 mm. Sections through the liver demonstrate generalized increase in and coarsening of its echotexture, compatible with steatosis. No hepatic mass is demonstrated. Normal-appearing color flow and spectrum are documented in the portal vein on Doppler. Patency of the hepatic veins and IVC is also demonstrated. Sections through the pancreas and spleen are unremarkable. The right kidney measures 10.4 x 4.5 x 5.1 cm. The left measures 9.9 x 5.6 x 4.7 cm. Cortical thickness and echogenicity appear normal. Flow to both kidneys is documented on color Doppler. No renal mass or calculus is demonstrated. There is no hydronephrosis. The caliber of the abdominal aorta is normal. No free fluid is seen. Procedure Note Dc Pal MD - 06/07/2025 [place] [id number] [place] [address] Examination: Complete abdominal ultrasound. Exam time: 0816 hours. Clinical history: Generalized pain. Comparison: None. Technique: Grayscale and color Doppler images including spectralanalysis. Findings: There are multiple shadowing bright reflectors in thegallbladder, compatible with gallstones. Wall thickness appears normal.There is no pericholecystic fluid. Sonographic Shepherd sign is reported asnegative. There is no intra or extrahepatic biliary ductal dilatation. Thecommon duct measures 4 mm. Sections through the liver demonstrategeneralized increase in and coarsening of its echotexture, compatible withsteatosis. No hepatic mass is demonstrated. Normal-appearing color flowand spectrum are documented in the portal vein on Doppler. Patency of thehepatic veins and IVC is also demonstrated. Sections through the pancreasand spleen are unremarkable. The right kidney measures 10.4 x 4.5 x 5.1 cm. The left measures 9.9 x 5.6x 4.7 cm. Cortical thickness and echogenicity appear normal. Flow to bothkidneys is documented on color Doppler. No renal mass or calculus isdemonstrated. There is no hydronephrosis. The caliber of the abdominal aorta is normal. No free fluid is seen. IMPRESSION: 1. Cholelithiasis. 2. Hepatic steatosis. Ordered By: KENDRA CHILEL Interpreted By: Dc Pal MD, 06/07/2025 9:21 AM Kendra Chilel PA-C ULTRASOUND Final Resul t from Last 3 Months Insurance [employer] MEDICA[employer] Care Teams Assistant Mechanic Relationship Specialty Start Date End Date Kendra Chilel PA-C [address] [place] [address] PCP - General 06/06/25
--- OUTSIDE RECORDS SUMMARY | 2025-08-12 00:35 | XMS_ITS | Encounter Summary ---
Author Organization [facility] Address [address] [place] [address] Phone Care Team Providers Care Vessel Crew Member Name Role Phone Kendra Chilel Primary Care Provider + Reason for Visit * Reason Comments Medication Refill Encounter Details Date Type Department Care Team (Late st Contact Info) Description 12/31/2023 Refill [facility] [place] [address] [place] [address] Kendra Chilel PAC [address] [place] [address] Medication Refill Social History Tobacco Use Types [...] Sy 03/05/23 Office Visit Kendra Chilel PAC [facility] [place] [place] Showing recent visits within past 365 [...] documented as of this encounter Care Teams Vessel Crew Member Relationship Specialty Start Date End Date Kendra Chilel PAC [address] [place] [address] PCP - General Physician Professor Of Art 08/25/17 documented as of this encounter
--- OUTSIDE RECORDS SUMMARY | 2025-08-12 00:35 | XMS_ITS | Encounter Summary ---
Author Organization [facility] Address [address] [place] [address] Phone Care Team Providers Care Snuff Drier Name Role Phone Kendra Chilel Primary Care Provider + Reason for Visit * Reason Comments Medication Refill Encounter Details Date Type Department Care Team (Late st Contact Info) Description 03/07/2024 Refill [facility] [place] [address] [place] [address] Kendra Chilel PAC [address] [place] [address] Medication Refill Social History Tobacco Use Types [...] [facility] 08/06/23 Telemedicine Kendra Chilel PAC [place] Showing recent visits within past 365 [...] documented as of this encounter Care Teams Snuff Drier Relationship Specialty Start Date End Date Kendra Chilel PAC [address] [place] [address] PCP - General Physician Finished Cloth Examiner 08/25/17 documented as of this encounter
--- OUTSIDE RECORDS SUMMARY | 2025-08-12 00:35 | XMS_ITS | Encounter Summary ---
Author Organization [facility] Address [address] [place] [address] Phone Care Team Providers Care Bid Writer Name Role Phone Kendra Chilel Primary Care Provider + Reason for Visit * Reason Comments Medication Refill Encounter Details Date Type Department Care Team (Late st Contact Info) Description 06/12/[address] [facility] - [facility] [address] [place] [address] Kendra Chilel PAC [address] [place] [address] Medication Refill Social History Tobacco Use Types Packs/Day Years Used Date Smoking Tobacco: Every Day Cigarettes 1 5 Smokeless Tobacco: Never Alcohol Use Standard Drinks/Week Comments Never 0 (1 standard drink = 0.6 oz pur e alcohol) [address] [facility] Utilities Answer Date Recorded In the past 12 months has [employer], gas, oil, or water [employer] threatened to shut off services in your home? No 06/15/2024 Social Connection and Isolation Panel Answer Date Recorded In a typical week, how many times do you talk on the phone with family, friends, or neighbors? Once a week 06/15/20 24 How often do you get togethe r with friends or relatives? Never 06/15/2024 How often do you attend [facility] or islam services? Never 06/15/2024 Do you belong to any clubs o r organizations such as voodoo groups, unions, fraternal or athletic groups, or [...] Recorded Total Score - Questions 1-9 0 /0 12/2021 [facility] - Occupational Stress [...] any time in the past 12 m [facility], were you homeless or living in a detention (including now)? No 06/15/2024 Education Answer Date [...] Assessment Author 0 06/15/2024 9:44 AM CDT [employer], System Background * Q1: How often do you have a drink containing alcohol? Answer Date of Assessment Author Never 06/15/2024 9:44 AM CDT [employer], System Background * Q2: How many drinks containing alcohol do you have on a typical day when you are drinking? Answer Date of Assessment Author Patient does not drink 06/15/2024 9:44 AM CDT My chart, System Background * Q3: How often do you have six or more drinks on one occasion? Answer Date of Assessment Author Never 06/15/2024 9:44 AM CDT [employer], System Background documented as of this encounter Miscellaneous Notes * Telephone Encounter - Elana Macedo RN - 06/12/2024 3:26 PM CDT Images from the original note were not included. Semaglutide Dispensed Days Supply Quantity Provider Pharmacy RYBELSUS 7MG TAB 06/12/2024 30 30 Tablet Fritcher, Jana, PAC [facility] RYBELSUS 7MG TAB 05/11/2024 30 30 Tablet Fritcher Jana, PAC [facility] documented in this encounter Plan of Treatment Not on file documented as of this encounter Visit Diagnoses Diagnosis Type 2 diabetes mellitus with complication, with long-term current use of insulin documented in this encounter Additional Health Concerns Assessment Noted Time PHQ-9 Depression Total Score: 0 01/09/20 21 3:47 PM CDT documented as of this encounter Care Teams Bid Writer Relationship Specialty Start Date End Date Kendra Chilel PAC [address] [place] [address] PCP - General Physician Marketing Systems Manager 08/25/17 documented as of this encounter
--- OUTSIDE RECORDS SUMMARY | 2025-08-12 00:35 | XMS_ITS | Encounter Summary ---
Author Organization [facility] Address [address] [place] [address] Phone Care Team Providers Care Museum Attendant Name Role Phone Kendra Chilel Primary Care Provider + Reason for Visit * Reason Comments Medication Refill Encounter Details Date Type Department Care Team (Late st Contact Info) Description 07/16/2022 Refill [facility] [place] [address] [place] [address] Kendra Chilel PAC [address] [place] [address] Medication Refill Social History Tobacco Use Types [...] documented as of this encounter Care Teams Museum Attendant Relationship Specialty Start Date End Date Kendra Chilel PAC [address] [place] [address] PCP - General Physician Armored Car Guard And Driver 08/25/17 documented as of this encounter
--- OUTSIDE RECORDS SUMMARY | 2025-08-12 00:35 | XMS_ITS | Encounter Summary ---
Author Organization [facility] Address [address] [place] [address] Phone Care Team Providers Care Instructor Traffic Safety Name Role Phone Kendra Chilel Primary Care Provider + Reason for Visit * Reason Comments Medication Refill Encounter Details Date Type Department Care Team (Late st Contact Info) Description 01/09/2024 Refill [facility] [address] [place] [address] Kendra Chilel PAC [address] [place] [address] Medication Refill Social History Tobacco Use Types [...] 10/12/2023 90 180 Tablet Kendra Chilel PAC [facility] documented in this encounter Plan of Treatment Not on file documented as of this encounter Visit Diagnoses Not on filedocumented in this encounter Additional Health Concerns Assessment Noted Time PHQ-9 Depression Total Score: 0 01/09/20 21 3:47 PM CDT documented as of this encounter Care Teams Instructor Traffic Safety Relationship Specialty Start Date End Date Kendra Chilel PAC [address] [place] [address] PCP - General Physician Manager Quality 08/25/17 documented as of this encounter
--- OUTSIDE RECORDS SUMMARY | 2025-08-12 00:35 | XMS_ITS | Encounter Summary ---
Author Organization [facility] Address [address] [place] [address] Phone Care Team Providers Care Monogram Maker Name Role Phone Kendra Chilel Primary Care Provider + Reason for Visit * Reason Comments Medication Refill Encounter Details Date Type Department Care Team (Late st Contact Info) Description 02/15/2024 Refill [facility] [address] [place] [address] Kendra Chilel PAC [address] [place] [address] Medication Refill Social History Tobacco Use Types [...] Med Name: ALBUTEROL HFA 90 MCG INHALER (NH] 8.5 g 2 Sig: TAKE 2 PUFFS BY INHALATION EVERY 4 HOURS NEEDED FOR WHEEZING. Short Acting Inhaled Beta-Agonists Protocol Passed - 02/15/2024 8:01 AM Passed - Visit with relevant provider in past 12 months or upcoming 90 days Recent Visits Date Type Provider Dept 02/14/24 Office Visit Kendra Chilel PAC [facility] 08/26/23 Office Visit Kendra Chilel [facility] 08/06/23 Telemedicine Kendra Chilel PAC [facility] 03/05/23 Office Visit Kendra Chilel [facility] [...] documented as of this encounter Care Teams Monogram Maker Relationship Specialty Start Date End Date Kendra Chilel PAC [address] [place] [address] PCP - General Physician Physician Aide 08/25/17 documented as of this encounter
--- OUTSIDE RECORDS SUMMARY | 2025-08-12 00:35 | XMS_ITS | Encounter Summary ---
Author Organization [facility] Address [address] [place] [address] Phone Care Team Providers Care It Architecture Consultant Name Role Phone Kendra Chilel Primary Care Provider + Reason for Visit * Reason Comments Medication Refill Encounter Details Date Type Department Care Team (Late st Contact Info) Description 11/11/2023 Refill [facility] [place] [address] [place] [address] Kendra Chilel PAC [address] [place] [address] Medication Refill Social History Tobacco Use Types [...] Signed by: Kendra Chilel PAC [facility] CONTROL ENGINEER documented in this encounter Plan of Treatment [...] documented as of this encounter Care Teams It Architecture Consultant Relationship Specialty Start Date End Date Kendra Chilel PAC [address] [place] [address] PCP - General Physician Subgrade Tester 08/25/17 documented as of this encounter
--- OUTSIDE RECORDS SUMMARY | 2025-08-12 00:35 | XMS_ITS | Encounter Summary ---
Author Organization [facility] Address [address] [place] [address] Phone Care Team Providers Care Four H Agent Name Role Phone Kendra Chilel Primary Care Provider + Reason for Visit * Reason Comments Medication Refill Encounter Details Date Type Department Care Team (Late st Contact Info) Description 12/06/2023 Refill [facility] [address] [place] [address] Kendra Chilel PAC [address] [place] [address] Medication Refill Social History Tobacco Use Types [...] AM CDT Medication(s) refilled and signed per [facility] Chronic Medication Refill Standing Order for Pediatricand [...] Dept 08/26/23 Office [facility] [place] [place] 08/[facility]/23 Telemedicine Kendra Chilel PAC [facility] 03/05/23 Office [facility]l [facility] [place] [place] Showing recent visits within past 365 days and meeting all other requirements Future Appointments Date Type Provider Dept 01/19/24 Appointment Kendra Chilel PAC [facility] Showing [...] documented as of this encounter Care Teams Four H Agent Relationship Specialty Start Date End Date Kendra Chilel PAC [address] [place] [address] PCP - General Physician Asphalt Engineer 08/25/17 documented as of this encounter
--- OUTSIDE RECORDS SUMMARY | 2025-08-12 00:35 | XMS_ITS | Encounter Summary ---
Author Organization [facility] Address [address] [place] [address] Phone Care Team Providers Care Glass Processing Worker Name Role Phone Kendra Chilel Primary Care Provider + Reason for Visit * Reason Comments Medication Refill Encounter Details Date Type Department Care Team (Late st Contact Info) Description 07/02/2025 Refill [facility] - [facility] [address] [place] [address] Kendra Chilel PAC [address] [place] [address] Medication Refill Social History Tobacco Use Types Packs/Day Years Used Date Smoking Tobacco: Every Day Cigarettes 1 10 Smokeless Tobacco: Never Comments:Currently using vap pen to try n quit Alcohol Use Standard Drinks/Week Comments No 0 (1 standard drink = 0.6 oz pur e alcohol) 2 X a year [facility] Utilities Answer Date Recorded In the past 12 months has [employer], gas, oil, or water company threatened to shut off services in your home? No 12/12/2024 Social Connection and Isolation Panel Answer Date Recorded In a typical week, how many times do you talk on the phone with family, friends, or neighbors? Patient declined 12/13/19 How often do you get togethe r with friends or relatives? Never 12/12/2024 How often do you attend [facility] or adventist services? Never 12/12/2024 Do you belong to any clubs o r organizations such as rastafarian groups, unions, fraternal or athletic groups, or [...] Total Score - Questions 1-9 0 11/26 [facility] - [...] any time in the past 12 m [place], were you homeless or living in a half-way (including now)? No 12/12/2024 Education Answer Date [...] Telephone Encounter - Elana Macedo RN - 07/02/2025 3:15 PM CDT Images from the original note were not included. Losartan Potassium Dispensed Days Supply Quantity Provider Pharmacy LOSARTAN POT TAB 100MG 07/02/2025 90 90 Tablet [facility] documented in this encounter Plan of Treatment Not on file documented as of this encounter Visit Diagnoses Not on filedocumented in this encounter Additional Health Concerns Assessment Noted Time PHQ-9 Depression Total Score: 0 12/15/19 25 10:22 AM CDT documented as of this encounter Care Teams Glass Processing Worker Relationship Specialty Start Date End Date Kendra Chilel PAC [address] [place] [address] PCP - General Physician Safety Deposit Clerk 08/25/17 documented as of this encounter
--- OUTSIDE RECORDS SUMMARY | 2025-08-12 00:35 | XMS_ITS | Encounter Summary ---
Author Organization [facility] Address [address] [place] [address] Phone Care Team Providers Care Lumber Planer Name Role Phone Kendra Chilel Primary Care Provider + Reason for Visit * Reason Comments Medication Refill Encounter Details Date Type Department Care Team (Late st Contact Info) Description 11/05/2024 Refill [facility] - [facility] [address] [place] [address] Kendra Chilel PAC [address] [place] [address] Medication Refill Social History Tobacco Use Types Packs/Day Years Used Date Smoking Tobacco: Every Day Cigarettes 1 5 Smokeless Tobacco: Never Alcohol Use Standard Drinks/Week Comments Never 0 (1 standard drink = 0.6 oz pur e alcohol) 2 X a year [facility] Utilities Answer Date Recorded In the past 12 months has [employer], gas, oil, or water [employer] threatened to shut off services in your home? No 06/15/2024 Social Connection and Isolation Panel Answer Date Recorded In a typical week, how many times do you talk on the phone with family, friends, or neighbors? Once a week 06/15/20 24 How often do you get togethe r with friends or relatives? Never 06/15/2024 How often do you attend [facility] or jainism services? Never 06/15/2024 Do you belong to any clubs o r organizations such as islam groups, unions, fraternal or athletic groups, or [...] Score - Questions 1-9 0 /0 12/2021 [facility] Occup[facility] Health - Occupational [...] any time in the past 12 m [facility], were you homeless or living in a jail (including now)? No 06/15/2024 Education Answer Date [...] Kendra Chilel PAC [facility] SCAPE NURSERYMAN documented in this encounter Plan of Treatment Not on file documented as of this encounter Visit Diagnoses Not on filedocumented in this encounter Additional Health Concerns Assessment Noted Time PHQ-9 Depression Total Score: 0 01/09/20 21 3:47 PM CDT documented as of this encounter Care Teams Lumber Planer Relationship Specialty Start Date End Date Kendra Chilel PAC [address] [place] [address] PCP - General Physician Transmission System Operator 08/25/17 documented as of this encounter
--- OUTSIDE RECORDS SUMMARY | 2025-08-12 00:35 | XMS_ITS | Clinical Summary ---
Author Organization [facility] [employer] Address [facility] [place] [address] Care Team Providers Care Tunnel Worker Name Role Phone Unknown, Provider Primary Care Provider Unavaila ble Source Comments [facility],non-owned Affiliates and Associated Physician Practices is amultiple site organization consisting of ambulatory clinics and hospital sitesin [place], [place], [place] and [place]. This disclosure is being madepursuant to the Care Everywhere program and may not contain all information available regarding this patient. Last updated 18.[facility] [employer] Social History Tobacco Use Types Packs/Day Years Used Date Smoking Tobacco: Never Assessed Comments Unknown Sex and Gender Information Value Date Recorded Sex Assigned at Not on file Legal Sex Female 6:30 AM LIMOUSINE RENTAL CLERK Gender Identity Not on file Sexual Orientation [...] of 3 - 19+ 3-dose series) 1995 PAP SMEAR 1997 Cervical Cancer Screening 2006 PAP with HPV 2006 DEPRESSION SCREENING 09/27/2024 COVID-19 VACCINE ( - 2024-2 6 season) 2025 INFLUENZA VACCINE (#1) 2025 ZOSTER VACCINE (1 [...] patient's age to complete this topic Insurance [facility] MEDICAID - OUT OF STATE Care Teams Tunnel Worker Relationship Specialty Start Date End Date Unknown, Provider PCP - General 01/26/18
--- OUTSIDE RECORDS SUMMARY | 2025-08-12 00:35 | XMS_ITS | Encounter Summary ---
Author Organization [facility] Address [address] [place] [address] Phone Care Team Providers Care Structural Analyst Name Role Phone Kendra Chilel Primary Care Provider + Reason for Visit * Reason Comments Medication Refill Encounter Details Date Type Department Care Team (Late st Contact Info) Description 03/15/2024 Refill [facility] [place] [address] [place] [address] Kendra Chilel PAC [address] [place] [address] Medication Refill Social History Tobacco Use Types [...] Dept 02/14/24 [facility] Office Visit Kendra Chilel [facility] 08/06/23 [facility]medicine [facility] recent visits within past 365 days [...] documented as of this encounter Care Teams Structural Analyst Relationship Specialty Start Date End Date Kendra Chilel PAC [address] [place] [address] PCP - General Physician Attendant Lodging Facilities 08/25/17 documented as of this encounter
--- OUTSIDE RECORDS SUMMARY | 2025-08-12 00:35 | XMS_ITS | Encounter Summary ---
Author Organization [facility] Address [address] [place] [address] Phone Care Team Providers Care Claims Processor Name Role Phone Kendra Chilel Primary Care Provider + Reason for Visit * Reason Comments Medication Refill Encounter Details Date Type Department Care Team (Late st Contact Info) Description 05/24/2021 Refill [facility] [address] [place] [address] Kendra Chilel PAC [address] [place] [address] Medication Refill Social History Tobacco Use Types [...] 01/29/21 Office Visit Kendra Chilel PAC [facility] 01/15/21 Office Visit Kendra Chilel PAC [facility] 01/08/21 Office Visit Kendra Chilel PAC [facility] 10/28/20 Telemedicine Kendra Chilel PAC [facility] 08/01/20 Office Visit Kendra Chilel PAC [facility] 07/15/20 Office Visit Kendra Chilel PAC [facility] Showing recent visits within past 365 days [...] 19 09/30/2021 09/30/2021 10/20/2021 12:1 6 AM REHABILITATION TEAM LEAD Assessment Noted Time PHQ-9 Depression Total Score: 0 01/09/20 21 3:47 PM CDT documented as of this encounter Care Teams Claims Processor Relationship Specialty Start Date End Date Kendra Chilel, IVANNA [address] [place] [address] PCP - General Physician Bench Grinder 08/25/17 documented as of this encounter
--- OUTSIDE RECORDS SUMMARY | 2025-08-12 00:35 | XMS_ITS | Encounter Summary ---
Author Organization [facility] Address [address] [place] [address] Phone Care Team Providers Care Chief Operator Synthesis Name Role Phone Kendra Chilel Primary Care Provider + Reason for Visit * Reason Comments Medication Refill Encounter Details Date Type Department Care Team (Late st Contact Info) Description 08/15/2023 Refill [facility] [place] [address] [place] [address] Kendra Chilel PAC [address] [place] [address] Medication Refill Social History Tobacco Use Types [...] Coronavirus/COVID-19? No / Unsure 08/02/2023 2:44 PM GREENHOUSE OR NURSERY TRANSPLANTER documented as of this encounter Miscellaneous Notes * Telephone Encounter - Elana Macedo RN - 08/16/2023 9:42 AM CST Refill remaining on file according to last Rx and refill history. NHOUSE OR NURSERY TRANSPLANTER * Telephone Encounter - Elana Macedo RN - 08/16/2023 9:40 AM CST Images from the original note were not included. tiZANidine HCl Dispensed Days Supply Quantity Provider Pharmacy TIZANIDINE 4MG TAB 08/15/2023 15 60 Tablet Kendra Chilel PAC [facility] TIZANIDINE 4MG TAB 07/13/2023 15 60 Tablet Kendra Chilel PAC [facility] NHOUSE OR NURSERY TRANSPLANTER documented in this encounter Plan of Treatment Not on file documented as of this encounter Visit Diagnoses Not on filedocumented in this encounter Additional Health Concerns Assessment Noted Time PHQ-9 Depression Total Score: 0 01/09/20 21 3:47 PM CDT documented as of this encounter Care Teams Chief Operator Synthesis Relationship Specialty Start Date End Date Kendra Chilel PAC [address] [place] [address] PCP - General Physician Dressage Instructor 08/25/17 documented as of this encounter
--- OUTSIDE RECORDS SUMMARY | 2025-08-12 00:35 | XMS_ITS | Encounter Summary ---
Author Organization [facility] Address [address] [place] [address] Phone Care Team Providers Care Auto Phone Installer Name Role Phone Kendra Chilel Primary Care Provider + Reason for Visit * Reason Comments Medication Refill Encounter Details Date Type Department Care Team (Late st Contact Info) Description 01/10/2024 Refill [facility] [address] [place] [address] Kendra Chilel PAC [address] [place] [address] Medication Refill Social History Tobacco Use Types [...] 10/12/2023 90 90 Tablet Kendra Chilel PAC [facility] documented in this encounter Plan of Treatment Not on file documented as of this encounter Visit Diagnoses Not on filedocumented in this encounter Additional Health Concerns Assessment Noted Time PHQ-9 Depression Total Score: 0 01/09/20 21 3:47 PM CDT documented as of this encounter Care Teams Auto Phone Installer Relationship Specialty Start Date End Date Kendra Chilel PAC [address] [place] [address] PCP - General Physician Presentation Team Member 08/25/17 documented as of this encounter
--- OUTSIDE RECORDS SUMMARY | 2025-08-12 00:35 | XMS_ITS | Encounter Summary ---
Author Organization [facility] Address [address] [place] [address] Phone Care Team Providers Care Electrician Elevator Maintenance Name Role Phone Kendra Chilel Primary Care Provider + Reason for Visit * Reason Onset Date Comments High Blood Sugar 08/26/2021 Encounter Details Date Type Department Care Team (Late st Contact Info) Description 08/26/2021 Nurse Triage [facility] [address] [place] [address] Kendra Chilel PAC [address] [place] [address] High Blood Sugar Social History Tobacco Use [...] COVID-19? No / Unsure 08/27/2021 8:50 AM CLINICAL BIOCHEMIST documented as of this encounter Miscellaneous Notes [...] EOV for 08/27/21 at 1015 with PCP ICAL BIOCHEMIST * Telephone Encounter - Kendra Chilel PAC - 08/26/2021 11:54 AM CLINICAL BIOCHEMIST If having symptoms of hyperglycemia such as weakness, blurred vision, abdominal pain vomiting go toER Can take humolag in chart 30 units with meals. Avoid sugar drinks Needs OV, extended. ICAL BIOCHEMIST * Telephone Encounter - Maya Aldana RN - 08/26/2021 9:50 AM CST Please Advise appointment to discuss elevated blood sugars and insulin? Thank you, Maya GIBSON ICAL BIOCHEMIST * Telephone Encounter - Maddy Raymond RN [...] by NURSE WITHIN 1 HOUR. Karie Bella [phone] Patient verbalized understanding, and agreeable to recommendations [...] Protocols used: DIABETES - HIGH BLOOD SUGAR-A-OH ICAL BIOCHEMIST documented in this encounter Plan of Treatment Not on file documented as of this encounter Visit Diagnoses Not on filedocumented in this encounter Additional Health Concerns Infection Onset Date Last Indicated Resolved Time COVID - 19 09/30/2021 09/30/2021 10/20/2021 12:1 6 AM CLINICAL BIOCHEMIST Assessment Noted Time PHQ-9 Depression Total Score: 0 01/09/20 21 3:47 PM CDT documented as of this encounter Care Teams Electrician Elevator Maintenance Relationship Specialty Start Date End Date Kendra Chilel PAC [address] [place] [address] PCP - General Physician Conservation Technician 08/25/17 documented as of this encounter
--- OUTSIDE RECORDS SUMMARY | 2025-08-12 00:35 | XMS_ITS | Encounter Summary ---
Author Organization [facility] Address [address] [place] [address] Phone Care Team Providers Care Swager Operator Name Role Phone Kendra Chilel Primary Care Provider + Reason for Visit * Reason Comments Medication Refill Encounter Details Date Type Department Care Team (Late st Contact Info) Description 10/29/2021 Refill [facility] [address] [place] [address] Kendra Chilel PAC [address] [place] [address] Medication Refill Social History Tobacco Use Types [...] COVID-19? No / Unsure 09/30/2021 2:35 PM JUICE PACKAGING MACHINES SETTER documented as of this encounter Miscellaneous Notes [...] 09/10/21 Office Visit Kendra Chilel PAC [facility] 08/27/21 Office Visit Kendra Chilel, PAC [facility] 05/20/21 Telemedicine Kendra Chilel PAC [facility] 03/04/21 Telemedicine Kendra Chilel PAC [facility] 01/29/21 Office Visit Kendra Chilel PAC [facility] 01/15/21 Office Visit Kendra Chilel PAC [facility] 01/08/21 Office Visit Kendra Chliel PAC [facility] Showing recent visits within past 365 days and meeting all other requirements Future Appointments Date Type Provider Dept 11/25/21 Appointment Kendra Chilel PAC [facility] Showing future appointments within next 90 days and meeting all other requirements Passed - No active on record E PACKAGING MACHINES SETTER documented in this encounter Plan of Treatment Not on file documented as of this encounter Visit Diagnoses Not on filedocumented in this encounter Additional Health Concerns Assessment Noted Time PHQ-9 Depression Total Score: 0 01/09/20 21 3:47 PM CDT documented as of this encounter Care Teams Swager Operator Relationship Specialty Start Date End Date Kendra Chilel PAC [address] [place] [address] PCP - General Physician Fabric And Accessories Estimator 08/25/17 documented as of this encounter
--- OUTSIDE RECORDS SUMMARY | 2025-08-12 00:35 | XMS_ITS | Encounter Summary ---
Author Organization [facility] Address [address] [place] [address] Phone Care Team Providers Care Import Coordination And Production Head Name Role Phone Kendra Chilel Primary Care Provider + Reason for Visit * Reason Comments Medication Refill Encounter Details Date Type Department Care Team (Late st Contact Info) Description 10/17/2022 Refill [facility] [address] [place] [address] Kendra Chilel PAC [address] [place] [address] Medication Refill Social History Tobacco Use Types [...] Refills: 0 Signed by: Kendra Chilel PAC [facility] documented in this encounter Plan of Treatment Not on file documented as of this encounter Visit Diagnoses Diagnosis Anxiety Anxiety state, unspecified documented in this encounter Additional Health Concerns Assessment Noted Time PHQ-9 Depression Total Score: 0 01/09/20 21 3:47 PM CDT documented as of this encounter Care Teams Import Coordination And Production Head Relationship Specialty Start Date End Date Kendra Chilel PAC [address] [place] [address] PCP - General Physician Manager Gift 08/25/17 documented as of this encounter
--- OUTSIDE RECORDS SUMMARY | 2025-08-12 00:35 | XMS_ITS ---
Author Organization [facility] Address [address] [place] [address] Phone Care Team Providers Care Dredge Pump Operator Name Role Phone Kendra Chilel Primary [...]
--- OUTSIDE RECORDS SUMMARY | 2025-08-12 00:35 | XMS_ITS | Encounter Summary ---
Author Organization [facility] Address [address] [place] [address] Phone Care Team Providers Care Steaming Machine Operator Name Role Phone Kendra Chilel Primary Care Provider + Reason for Visit * Reason Comments Medication Refill Encounter Details Date Type Department Care Team (Late st Contact Info) Description 12/16/2021 Refill [facility] [address] [place] [address] Kendra Chilel PAC [address] [place] [address] Medication Refill Social History Tobacco Use Types [...] COVID-19? No / Unsure 11/25/2021 9:25 AM PAPER SPOOLER documented as of this encounter Miscellaneous Notes [...] Receipt confirmed by pharmacy (09/23/2021 ??9:08 AM PAPER SPOOLER) Order Questions ?? omeprazole (PriLOSEC) 40 MG CAPSULE DELAYED RELEASE [[id number]] 7 Status: Active Ordering user: Kendra Chilel PAC 09/23/21 09 Authorized by: Kendra Chilel PAC Frequency: Daily 09/23/21 - Until Discontinued Released by: Kendra Chilel PAC 09/23/21 0908 Pharmacy [place], [place] - [address] documented in this encounter Plan of Treatment Not on file documented as of this encounter Visit Diagnoses Not on filedocumented in this encounter Additional Health Concerns Assessment Noted Time PHQ-9 Depression Total Score: 0 01/09/20 3:47 PM CDT documented as of this encounter Care Teams Steaming Machine Operator Relationship Specialty Start Date End Date Kendra Chilel PAC [address] [place] [address] PCP - General Physician Receiving Inspector 08/25/17 documented as of this encounter
--- OUTSIDE RECORDS SUMMARY | 2025-08-12 00:35 | XMS_ITS | Encounter Summary ---
Author Organization [facility] Address [address] [place] [address] Phone Care Team Providers Care Security Ambassador Name Role Phone Kendra Chilel Primary Care Provider + Reason for Visit * Reason Comments Medication Refill Encounter Details Date Type Department Care Team (Late st Contact Info) Description 09/28/2020 Refill [facility] [place] [address] [place] [address] Kendra Chilel PAC [address] [place] [address] Medication Refill Social History Tobacco Use Types [...] COVID-19? No / Unsure 08/29/2020 9:15 AM ELIGIBILITY CLERK documented as of this encounter Miscellaneous Notes [...] Visits 1 month ago Well woman exam [facility] - Kendra Galvan PAC 2 months ago Type 2 diabetes mellitus with complication, with long-term current use of insulin ([facility]) [facility] Kendra Vieyra PAC 8 months ago Type 2 diabetes mellitus with complication, with long-term current use of insulin ([facility]) [facility] Kendra Vieyra PAC 8 months ago Cough [facility] Kendra Vieyra PAC 9 months ago Sinusitis, unspecified chronicity, unspecified location [facility] Kendra Vieyra PAC Upcoming Appointments Future Appointments In 1 week Kendra Chilel PAC [facility] PRAKASH Shultz AMPHIBIAN CREWMEMBER - Recent and Past Visits Recent Visits Date Type Provider Dept 08/01/20 Office Visit Kendra Chilel PAC [facility] 07/15/20 Office Visit Kendra Chilel PAC [facility] 01/29/20 Office Visit Kendra Chilel PAC [facility] 01/19/20 Telemedicine Kendra Chilel PAC [facility] 12/26/19 Telemedicine Kendra Chilel PAC [facility] [place] 07/11/19 Office Visit Kendra Chilel PAC [facility] [place] Showing recent visits within past 460 days with a meds authorizing provider and meeting all other requirements Future Appointments Date Type Provider Dept 10/10/20 Appointment Kendra Chilel PAC [facility] [place] Showing future appointments within next 90 days [...] Visits 1 month ago Well woman exam [facility] Kendra Galvan PAC 2 months ago Type 2 diabetes mellitus with complication, with long-term current use of insulin ([facility]) [facility] Kendra Galvan PAC 8 months ago Type 2 diabetes mellitus with complication, with long-term current use of insulin ([facility]) [facility] Kendra Galvan PAC 8 months ago Cough [facility] Kendra Galvan PAC 9 months ago Sinusitis, unspecified chronicity, unspecified [facility] Upcoming Appointments Future Appointments In 1 week Kendra Chilel PAC [facility] AMPHIBIAN CREWMEMBER - Recent and Past Visits Recent Visits Date Type Provider Dept 08/01/20 Office Visit Kendra Chilel PAC [facility] 07/15/20 Office Visit Kendra Chilel PAC [facility] 01/29/20 Office Visit Kendra Chilel PAC [facility] 01/19/20 Telemedicine Kendra Chilel PAC [facility] 12/26/19 Telemedicine Kendra Chilel PAC [facility] 07/11/19 Office Visit Kendra Chilel PAC [facility] Showing recent visits within past 460 days with a meds authorizing provider and meeting all other requirements Future Appointments Date Type Provider Dept 10/10/20 Appointment Kendra Chilel PAC [facility] Showing future appointments within next 90 days with a meds authorizing provider and meeting all other requirements IBILITY CLERK documented in this encounter Plan of Treatment Not on file documented as of this encounter Visit Diagnoses Not on filedocumented in this encounter Additional Health Concerns Infection Onset Date Last Indicated Resolved Time COVID - 19 10/29/2020 10/29/2020 11/01/2020 8:13 AM ELIGIBILITY CLERK COVID - 19 01/08/2021 01/09/2021 01/11/2021 5:59 AM CDT COVID - 19 02/25/2021 02/28/2021 03/17/2021 12:1 6 AM CDT COVID - 19 09/30/2021 09/30/2021 10/20/2021 12:1 6 AM ELIGIBILITY CLERK Assessment Noted Time PHQ-9 Depression Total Score: 0 08/01/20 20 10:14 AM ELIGIBILITY CLERK documented as of this encounter Care Teams Security Ambassador Relationship Specialty Start Date End Date Kendra Chilel PAC [address] [place] [address] PCP - General Physician Campaign Assistant 08/25/17 documented as of this encounter
--- OUTSIDE RECORDS SUMMARY | 2025-08-12 00:35 | XMS_ITS | Encounter Summary ---
Author Organization [facility] Address [address] [place] [address] Phone Care Team Providers Care Engineering Team Supervisor Name Role Phone Kendra Chilel Primary Care Provider + Reason for Visit * Reason Comments Medication Refill Encounter Details Date Type Department Care Team (Late st Contact Info) Description 12/20/2023 Refill [facility] [address] [place] [address] Kendra Chilel PAC [address] [place] [address] Medication Refill Social History Tobacco Use Types [...] 08/26/23 Office Visit Kendra Chilel PAC [facility] 08/06/23 Telemedicine Kendra Chilel PAC [facility] 03/05/23 Office Visit Kendra Chilel PAC [facility] Showing recent visits within past 365 days and meeting all other requirements Future Appointments Date Type Provider Dept 01/19/24 Appointment Kendra Chilel PAC [facility] Showing future appointments within next 90 days and meeting all other requirements documented in this encounter Plan of Treatment Not on file documented as of this encounter Visit Diagnoses Not on filedocumented in this encounter Additional Health Concerns Assessment Noted Time PHQ-9 Depression Total Score: 0 01/09/20 21 3:47 PM CDT documented as of this encounter Care Teams Engineering Team Supervisor Relationship Specialty Start Date End Date Kendra Chilel PAC [address] [place] [address] PCP - General Physician Motel Maid 08/25/17 documented as of this encounter
--- OUTSIDE RECORDS SUMMARY | 2025-08-12 00:35 | XMS_ITS | Encounter Summary ---
Author Organization [facility] Address [address] [place] [address] Phone Care Team Providers Care Feed And Farm Management Adviser Name Role Phone Kendra Chilel Primary Care Provider + Reason for Visit * Reason Comments Medication Refill Encounter Details Date Type Department Care Team (Late st Contact Info) Description 08/18/2022 Refill [facility] [place] [address] [place] [address] Kendra Chilel PAC [address] [place] [address] Medication Refill Social History Tobacco Use Types [...] - 08/18/2022 11:23 AM CST Reordered 08/14/22 THERAPIST documented in this encounter Plan of Treatment Not on file documented as of this encounter Visit Diagnoses Diagnosis Anxiety Anxiety state, unspecified documented in this encounter Additional Health Concerns Assessment Noted Time PHQ-9 Depression Total Score: 0 01/09/20 21 3:47 PM CDT documented as of this encounter Care Teams Feed And Farm Management Adviser Relationship Specialty Start Date End Date Kendra Chilel PAC [address] [place] [address] PCP - General Physician Elevator Attendant 08/25/17 documented as of this encounter
--- OUTSIDE RECORDS SUMMARY | 2025-08-12 00:35 | XMS_ITS | Encounter Summary ---
Author Organization [facility] Address [address] [place] [address] Phone Care Team Providers Care Data Programmer Name Role Phone Kendra Chilel Primary Care Provider + Reason for Visit * Reason Comments Medication Refill Encounter Details Date Type Department Care Team (Late st Contact Info) Description 12/13/2024 Refill [facility] [place] [address] [place] [address] Kendra Chilel PAC [address] [place] [address] Medication Refill Social History Tobacco Use Types Packs/Day Years Used Date Smoking Tobacco: Every Day Cigarettes 1 5 Smokeless Tobacco: Never Alcohol Use Standard Drinks/Week Comments Never 0 (1 standard drink = 0.6 oz pur e alcohol) 2 X a year [facility] Utilities Answer Date Recorded In the past 12 months has [employer], gas, oil, or water [place] [employer] threatened to shut off services in your home? No 12/12/2024 Social Connection and Isolation Panel Answer Date Recorded In a typical week, how many times do you talk on the phone with family, friends, or neighbors? Patient declined 12/13/19 How often do you get togethe r with friends or relatives? Never 12/12/2024 How often do you attend [facility] or jew services? Never 12/12/2024 Do you belong to any clubs o r organizations such as holiness groups, unions, fraternal or athletic groups, or [...] Total Score - Questions 1-9 0 11/26 [facility] - Occupational Stress Questionnaire Answer Date [...] any time in the past 12 m [facility], were you homeless or living in a [...] 10/13/2024 30 30 Tablet Fritcher, Jana, PAC [facility] * Telephone Encounter - [...] documented as of this encounter Care Teams Data Programmer Relationship Specialty Start Date End Date Kendra Chilel PAC [address] [place] [address] PCP - General Physician Communication Lecturer 08/25/17 documented as of this encounter
--- OUTSIDE RECORDS SUMMARY | 2025-08-12 00:35 | XMS_ITS | Encounter Summary ---
Author Organization [facility] Address [address] [place] [address] Phone Care Team Providers Care Helper Shear Operator Name Role Phone Kendra Chilel Primary Care Provider + Reason for Visit * Reason Comments Medication Refill Encounter Details Date Type Department Care Team (Late st Contact Info) Description 07/18/2022 Refill [facility] [address] [place] [address] Kendra Chilel PAC [address] [place] [address] Medication Refill Social History Tobacco Use Types [...] TIZANIDINE 4MG TAB 07/18/2022 15 60 Tablet FRITCHER,KENDRA [facility] documented as of this encounter Care Teams Helper Shear Operator Relationship Specialty Start Date End Date Kendra Chilel PAC [address] [place] [address] PCP - General Physician Stretcher Helper 08/25/17 documented as of this encounter
--- OUTSIDE RECORDS SUMMARY | 2025-08-12 00:35 | XMS_ITS | Encounter Summary ---
Author Organization [facility] Address [address] [place] [address] Phone Care Team Providers Care Quality Lead Name Role Phone Kendra Chilel Primary Care Provider + Reason for Visit * Reason Comments Medication Refill Encounter Details Date Type Department Care Team (Late st Contact Info) Description 02/07/2024 Refill [facility] [address] [place] [address] Kendra Chilel PAC [address] [place] [address] Medication Refill Social History Tobacco Use Types [...] PM CDT Medication[facility]) [facility] Med[facility] Refill Standing Order for [...] [facility] 08/06/23 Telemedicine Kendra Chilel PAC [facility] 03/05/23 Office Visit Kendra Chilel PAC [facility] [place] Showing recent visits within past 365 days and meeting all other requirements Future Appointments Date Type Provider Dept 02/14/24 Appointment Kendra Chilel PAC [facility] [place] Showing future appointments within next 90 days [...] documented as of this encounter Care Teams Quality Lead Relationship Specialty Start Date End Date Kendra Chilel PAC [address] [place] [address] PCP - General Physician Brief Writer 08/25/17 documented as of this encounter
--- OUTSIDE RECORDS SUMMARY | 2025-08-12 00:35 | XMS_ITS | Clinical Summary ---
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 05/25/2025 2:41 PM CDT 05/25/2025 2:41 PM CDT Narrative Organism Antibiotic Method Susceptibility Enterococcus faecalis Ampicillin SF VITEK IIB <=2 mcg/ml: Susceptible Enterococcus faecalis Benzylpenicillin SF VITEK IIB 4 mcg/ml: Susceptible Enterococcus faecalis Gentamicin High Le robert Synergy [facility] VITEK IIB SYN-R mcg/ml: Resistant Enterococcus faecalis Linezolid SF VITEK IIB 2 mcg/ml: Susceptible Enterococcus faecalis Vancomycin [facility] VITEK IIB 1 mcg/ml: Susceptible us Kendra Chilel PAC MICROBIOLOGY - GENERAL O RDERABLES Final Result Performing Organization Address [facility] Co de Phone Number [facility] [address] [place] [address], [place] * UR TOXICOLOGY SCREEN (05/25/2025 12:00 AM CDT) 05/25/2025 us Kendra Chiell PAC URINE ORDERABLES Final R esult Performing Organization Address City/[facility]/ZIP Co de Phone Number SCAN * CHRISTEL DIAG BILATERAL DIGITAL W CAD W DEBORA (01/12/2025 10:55 AM CDT) Anatomical Region Laterality Modality breast Bilateral Mammography 01/12/2025 9:43 AM CDT Narrative 01/12/2025 1:43 PM CDT - [facility] DIAG BILATERAL DIGITAL W CAD W DEBORA - CHRISTEL US BREAST LIMITED RT BILATERAL DIGITAL DIAGNOSTIC MAMMOGRAM 3D/2D WITH CAD WITH MEDIOLATERAL OBLIQUE CRANIOCAUDAL AND RIGHT ULTRASOUND: 01/12/2025 The study was acquired using digital technology and interpreted from soft copy. Current study was also evaluated with ICAD version 7.2. 2D digital mammographic views, as well as 3D digital tomosynthesis were performed in the CC and MLO projections. CLINICAL: Patient returns for a past due follow-up right breast, left annual. She reports a 21 pound weight decrease since last mammogram. No personal history of cancer. No family history of breast cancer. COMPARISONS: Comparison is made to exams dated: 08/29/2020 and 08/29/2020 [facility]. BREAST TISSUE:The breasts are almost entirely fatty. [...] signed by: Joelle Martins M.D. ll/:01/12/2025 12:13:29 Caramel Candy Maker Helper(s): Pennie De Jesus RDMS [facility]; RT Steven(R)(M), [facility] letter sent: Normal Exam Reading location: [facility]: Category 2: Benign Procedure Note Joelle Martins MD - 01/12/2025 - CHRISTEL DIAG BILATERAL DIGITAL W CAD W DEBORA - CHRISTEL US BREAST LIMITED RT BILATERAL DIGITAL DIAGNOSTIC MAMMOGRAM 3D/2D WITH CAD WITH MEDIOLATERAL OBLIQUE CRANIOCAUDAL AND RIGHT ULTRASOUND: 01/12/2025 The study was acquired using digital technology and interpreted from soft copy. Current study was also evaluated with ICAD version 7.2. 2D digital mammographic views, as well as 3D digital tomosynthesis were performed in the CC and MLO projections. CLINICAL: Patient returns for a past due follow-up right breast, left annual. She reports a 21 pound weight decrease since last mammogram. No personal history of cancer. No family history of breast cancer. COMPARISONS: Comparison is made to exams dated: 08/29/2020 and 08/29/2020 [facility]. BREAST TISSUE:The breasts are almost entirely fatty. [...] signed by: Joelle Martins M.D. ll/:01/12/2025 12:13:29 Caramel Candy Maker Helper(s): Pennie De Jesus RDMS OBGYN, [facility]; RT Steven(R)(M), [facility] letter sent: Normal Exam Reading location: [facility] BIR[facility]: Category 2: Benign Kendra Chilel PAC IMG MAMMO ORDERABLES Fin al Result * HEPATITIS C ANTIBODY (03/05/2023 3:17 PM CDT) hepatitis C antibody 0.11 <1 S/[facility] ARCH [id number] B 03/05/2023 10:41 PM CDT [facility] Comment: Signal/Cutoff ratio < 0.79 is Nondetected Signal/Cutoff ratio 0.80-0.99 is Grayzone Signal/Cutoff ratio > 0.99 is Detected Supplemental assays are recommended if signal/cutoff ratio is >/=1.00. Signal/cutoff ratio result >/= 5.00 is 97% predictive of positivity for recombinant immunoblot assay (RIBA) and will be reported to the [place] Department of Public Health as required. Blood Venipuncture / Unknown 03/05/2023 3:17 PM CDT 03/05/2023 4:17 PM CDT us Kendra Chilel [facility] CHEMISTRY ORDERABLES Fin al Result [facility] [address] [place] [address], [place] * PATHOLOGY CYTOLOGY CURRICULUM ADVISORY TEACHER (08/01/2020 11:09 AM MANAGER COMMUNITY RELATIONS) SPECIMEN ADEQUACY Satisfactory for evaluation. Endocervical/transf ormation zone component is present. 08/13/2020 1:40 PM MANAGER COMMUNITY RELATIONS [facility] DESCRIPTIVE DIAGNOSIS NEGATIVE FOR INTRAEPITHELIAL LESIONS OR MALIGNANCY. 08/13/2020 1:40 PM MANAGER COMMUNITY RELATIONS [facility] at [address] MANAGER COMMUNITY RELATIONS AUTOMATED EXAMINATION Analysis of this sample has been assisted by an automated imaging and review system (Thinprep Imaging System, [employer], [place], [place]). This case is further evaluated and finalized by a regional company hazmat tanker driver and/or pathologist. 08/13/2020 1:40 PM MANAGER COMMUNITY RELATIONS [facility] DISCLAIMER The PAP smear is a screening [...] 65 unless clinically indicated. 08/13/2020 1:40 PM MANAGER COMMUNITY RELATIONS [facility] HPV Reflex if ASCUS? No 08/13/2020 1:40 PM MANAGER COMMUNITY RELATIONS [facility] Comment:cotesting Other CERVIX UTERI STRUCTURE / Unknown Non-Phlebotomy Collection / Unknown 08/01/2020 11:09 AM MANAGER COMMUNITY RELATIONS 08/01/2020 11:18 AM MANAGER COMMUNITY RELATIONS us Kendra Chilel PAC PATHOLOGY/CYTOLOGY ORDER ZARI Final Result Performing Organization Address City/State/[facility] Co de Phone Number [facility] [address] [place] [address], * HUMAN PAPILLOMA VIRUS (HPV) (08/01/2020 11:09 AM MANAGER COMMUNITY RELATIONS) HPV OTHER HIGH RISK TYPES, PCR NEGATIVE NEGATIVE 08/02/2020 3:39 PM MANAGER COMMUNITY RELATIONS [facility] Comment: The following Other High Risk types [...] TYPE 16 NEGATIVE NEGATIVE 08/02/2020 3:39 PM MANAGER COMMUNITY RELATIONS [facility] Comment: A negative high-risk HPV result does [...] TYPE 18 NEGATIVE NEGATIVE 08/02/2020 3:39 PM MANAGER COMMUNITY RELATIONS [facility] Comment: A negative high-risk HPV [...] SCREENING OR DIAGNOSTIC SCREENING 08/02/2020 3:39 PM MANAGER COMMUNITY RELATIONS [facility] Other Non-Phlebotomy Collection / Unknown 08/01/2020 11:09 AM MANAGER COMMUNITY RELATIONS 08/01/2020 11:18 AM MANAGER COMMUNITY RELATIONS Narrative [facility] - 08/02/2020 3:39 PM MANAGER COMMUNITY RELATIONS Performed by Real-Time Polymerase Chain Reaction (PCR) on the Lucy Joseph 4800. This assay has been validated for use with post-aliquot samples from the [employer] T5000 processor. Kendra Chilel PAC LAB SEND OUTS Final Re sult [facility] [address] [place] [address], [facility] [address] [place] [address] * DILATED EYE EXAM (02/06/2016) Historical Provider MD PROCEDURE/MINOR SURGICAL ORDERABLES Final Result from Last 3 Months or Most Recently Relevant to Health Maintenance Insurance MEDICAID AETNA [facility] Advance Directives * Full Code (Latest Code Status on File) Date Activated Date Inactivated Comments 08/01/2017 3:11 PM 08/04/2017 12:34 PM CPR-Full Tr eatment: FULL ARREST: Attempt Resuscitation/CPR wit intubation and mechanical ventilation. PRE-ARREST: Use entire range of life support measures to stabilize the patient. Care Teams Ruffling Hemmer Automatic Relationship Specialty Start Date End Date Kendra Chilel PAC [address] [place] [address] PCP - General Physician Lead Advisor 08/25/17
--- OUTSIDE RECORDS SUMMARY | 2025-08-12 00:35 | XMS_ITS | Encounter Summary ---
Author Organization [facility] Address [address] [place] [address] Phone Care Team Providers Care Cover Making Machine Operator Name Role Phone Kendra Chilel Primary Care Provider + Reason for Visit * Reason Comments Medication Refill Encounter Details Date Type Department Care Team (Late st Contact Info) Description 11/25/2021 Refill [facility] [address] [place] [address] Dee Lopez, [facility] [address] [place] [address] Medication Refill Social History Tobacco Use Types [...] COVID-19? No / Unsure 11/25/2021 9:25 AM SSRS DEVELOPER documented as of this encounter Miscellaneous Notes [...] 09/30/21 Office Visit Kendra Chilel, PAC [facility] 09/10/21 Office Visit Kendra Chilel, PAC [facility] 08/27/21 Office Visit Kendra Chilel, PAC [facility] 05/20/21 Telemedicine Kendra Chilel, PAC [facility] 03/04/21 Telemedicine Kendra Chilel, PAC [facility] 01/29/21 Office Visit Kendra Chille, PAC [facility] 01/15/21 Office Visit Kendra Chilel, PAC [facility] 01/08/21 Office Visit Kendra Chilel, PAC [facility] Showing recent visits within past 365 days and meeting all other requirements Today's Visits Date Type Provider Dept 11/25/21 Appointment Kendra Chilel PAC [facility] Showing today's visits and meeting all other [...] Status 01/29/2021 60 (H) <=41 U/L Final DEVELOPER documented in this encounter Plan of Treatment Not on file documented as of this encounter Visit Diagnoses Not on filedocumented in this encounter Additional Health Concerns Assessment Noted Time PHQ-9 Depression Total Score: 0 01/09/20 21 3:47 PM CDT documented as of this encounter Care Teams Cover Making Machine Operator Relationship Specialty Start Date End Date Kendra Chilel PAC [address] [place] [address] PCP - General Physician Rigger 08/25/17 documented as of this encounter
--- OUTSIDE RECORDS SUMMARY | 2025-08-12 00:35 | XMS_ITS | Encounter Summary ---
Author Organization [facility] Address [address] [place] [address] Phone Care Team Providers Care Washer And Crusher Tender Name Role Phone Kendra Chilel Primary Care Provider + Reason for Visit * Reason Comments Medication Refill Encounter Details Date Type Department Care Team (Late st Contact Info) Description 09/06/2023 Refill [facility] [place] [address] [place] [address] Kendra Chilel PAC [address] [place] [address] Medication Refill Social History Tobacco Use Types [...] Office Visit Kendra Chilel PAC [facility] 10/23/22 Office Visit Kendra Chilel PAC [facility] Showing recent visits within past 365 days and meeting all other requirements Future Appointments Date Type Provider Dept 12/01/23 Appointment Kendra Chilel PAC [facility] Showing future appointments within next 90 days and meeting all other requirements RUCTIONAL PARAPROFESSIONAL documented in this encounter Plan of Treatment Not on file documented as of this encounter Visit Diagnoses Not on filedocumented in this encounter Additional Health Concerns Assessment Noted Time PHQ-9 Depression Total Score: 0 01/09/20 21 3:47 PM CDT documented as of this encounter Care Teams Washer And Crusher Tender Relationship Specialty Start Date End Date Kendra Chilel PAC [address] [place] [address] PCP - General Physician Commercial Carpenter 08/25/17 documented as of this encounter
--- OUTSIDE RECORDS SUMMARY | 2025-08-12 00:35 | XMS_ITS | Encounter Summary ---
Author Organization [facility] Address [address] [place] [address] Phone Care Team Providers Care Tying In Machine Operator Name Role Phone Kendra Chilel Primary Care Provider + Reason for Visit * Reason Comments Medication Refill Encounter Details Date Type Department Care Team (Late st Contact Info) Description 12/27/2023 Refill [facility] [address] [place] [address] Kendra Chilel PAC [address] [place] [address] Medication Refill Social History Tobacco Use Types [...] PM CDT Medication(s) refilled and [facility] Medication Refill Standing Order for [...] [facility] 08/06/23 Telemedicine Kendra Chilel PAC [facility] Sy Showing recent visits within past 182 days and meeting all other requirements Future Appointments Date Type Provider Dept 01/19/24 Appointment Kendra Chilel PAC [facility] Showing future appointments within next 90 [...] 08/06/23 Telemedicine Kendra Chilel PAC [facility] Showing recent visits within past 182 days [...] documented as of this encounter Care Teams Tying In Machine Operator Relationship Specialty Start Date End Date Kendra Chilel PAC [address] [place] [address] PCP - General Physician Red Cap 08/25/17 documented as of this encounter
--- OUTSIDE RECORDS SUMMARY | 2025-08-12 00:36 | XMS_ITS | Encounter Summary ---
Author Organization [facility] Address [address] [place] [address] Phone Care Team Providers Care Supervisor Scrap Preparation Name Role Phone Kendra Chilel Primary Care Provider + Reason for Visit * Reason Comments Medication Refill Encounter Details Date Type Department Care Team (Late st Contact Info) Description 01/08/2025 Refill [facility] [address] [place] [address] Kendra Chilel PAC [address] [place] [address] Medication Refill Social History Tobacco Use Types Packs/Day Years Used Date Smoking Tobacco: Every Day Cigarettes 1 5 Smokeless Tobacco: Never Alcohol Use Standard Drinks/Week Comments Never 0 (1 standard drink = 0.6 oz pur e alcohol) 2 X a year [facility] Utilities Answer Date Recorded In the past 12 months has [employer], gas, oil, or water [email or web address] threatened to shut off services in your home? No 12/12/2024 Social Connection and Isolation Panel Answer Date Recorded In a typical week, how many times do you talk on the phone with family, friends, or neighbors? Patient declined 12/13/19 How often do you get togethe r with friends or relatives? Never 12/12/2024 How often do you attend [facility] or baptist services? Never 12/12/2024 Do you belong to any clubs o r organizations such as jewish groups, unions, fraternal or athletic groups, or [...] Total Score - Questions 1-9 0 11/[address] [facility] - Occupational Stress Questionnaire Answer Date Recorded [...] time in the past [address] [facility], were you homeless or living in a [...] as of this encounter Care Teams Supervisor Scrap Preparation Relationship Specialty Start Date End Date Kendra Chilel PAC [address] [place] [address] PCP - General Physician Appraiser Personal Property 08/25/17 documented as of this encounter
--- OUTSIDE RECORDS SUMMARY | 2025-08-12 00:36 | XMS_ITS | Encounter Summary ---
Author Organization [facility] Address [address] [place] [address] Phone Care Team Providers Care Pyrotechnic Mixer Name Role Phone Kendra Chilel Primary Care Provider + Reason for Visit * Reason Comments Medication Refill Encounter Details Date Type Department Care Team (Late st Contact Info) Description 02/27/2021 Refill [facility] [place] [address] [place] [address] Kendra Chilel PAC [address] [place] [address] Medication Refill Social History Tobacco Use Types [...] complication, with long-term current use of insulin ([facility]) [facility] - Kendra Galvan PAC 1 month ago Type 2 diabetes mellitus with complication, with long-term current use of insulin ([facility]) [facility] - Kendra Galvan PAC 1 month ago Type 2 diabetes mellitus with complication, with long-term current use of insulin ([facility]) [facility] - Kendra Galvan PAC 4 months ago Diarrhea, unspecified type [facility] - Kendra Galvan PAC 7 months ago Well woman exam [facility] - Kendra Galvan PAC Upcoming Appointments SAUSAGE SMOKER - Recent and Past Visits Recent Visits Date Type Provider Dept 01/29/21 Office Visit Kendra Chilel PAC [facility] 01/15/21 Office Visit Kendra Chilel PAC [facility] 01/08/21 Office Visit Kendra Chilel PAC [facility] 10/28/20 Telemedicine Kendra Chilel, PAC [facility] 08/01/20 Office Visit Kendra Chilel, PAC [facility] 07/15/20 Office Visit Kendra Chilel, PAC [facility] 01/29/20 Office Visit Kendra Chilel, PAC [facility] 01/19/20 Telemedicine Kendra Chilel, PAC [facility] 12/26/19 Telemedicine Kendra Chilel, PAC [facility] Showing recent [...] 19 09/30/2021 09/30/2021 10/20/2021 12:1 6 AM DYE BOARDING MACHINE OPERATOR Assessment Noted Time PHQ-9 Depression Total Score: 0 01/09/20 21 3:47 PM CDT documented as of this encounter Care Teams Pyrotechnic Mixer Relationship Specialty Start Date End Date Kendra Chilel PAC [address] [place] [address] PCP - General Physician Laborer [employer] 08/25/17 documented as of this encounter
--- OUTSIDE RECORDS SUMMARY | 2025-08-12 00:36 | XMS_ITS | Encounter Summary ---
Author Organization [facility] Address [address] [place] [address] Phone Care Team Providers Care Statistics Teacher Name Role Phone Kendra Chilel Primary Care Provider + Reason for Visit * Reason Comments Medication Refill Encounter Details Date Type Department Care Team (Late st Contact Info) Description 11/16/2022 Refill [facility] [place] [address] [place] [address] Kendra Chilel PAC [address] [place] [address] Medication Refill Social History Tobacco Use Types [...] Coronavirus/COVID-19? No / Unsure 10/23/2022 10:12 AM BOX HINGE AND LOCK ATTACHER documented as of this encounter Miscellaneous Notes [...] Receipt confirmed by pharmacy (10/15/2022 ??4:33 PM BOX HINGE AND LOCK ATTACHER) tiZANidine (ZANAFLEX) 4 MG Tablet [[id number]] 163 Status: Active Ordering user: Kendra Chilel PAC 10/15/22 163 Authorized by: Kendra Chilel PAC PRN reasons: Muscle spasms Frequency: Q6H PRN 10/15/22 - Until Discontinued Released by: Kendra Chilel PAC 10/15/22 1632 Pharmacy [facility] [place], [place] - [address] HINGE AND LOCK ATTACHER * Telephone Encounter - Elana Macedo RN - 11/16/2022 9:26 AM CST Images from the original note were not included. tiZANidine HCl Dispensed Days Supply Quantity Provider Pharmacy TIZANIDINE 4MG TAB 10/15/2022 15 60 Tablet Kendra Chilel PAC [facility]... HINGE AND LOCK ATTACHER documented in this encounter Plan of Treatment Not on file documented as of this encounter Visit Diagnoses Not on filedocumented in this encounter Additional Health Concerns Assessment Noted Time PHQ-9 Depression Total Score: 0 01/09/20 21 3:47 PM CDT documented as of this encounter Care Teams Statistics Teacher Relationship Specialty Start Date End Date Kendra Chilel PAC [address] [place] [address] PCP - General Physician Blender Conveyor Operator 08/25/17 documented as of this encounter
--- OUTSIDE RECORDS SUMMARY | 2025-08-12 00:36 | XMS_ITS | Encounter Summary ---
Author Organization [facility] Address [address] [place] [address] Phone Care Team Providers Care Skull Chopper Name Role Phone Kendra Chilel Primary Care Provider + Reason for Visit * Reason Comments Medication Refill Encounter Details Date Type Department Care Team (Late st Contact Info) Description 02/26/2021 Refill [facility] [place] [address] Kendra Chilel PAC [address] [place] [address] Medication Refill Social History Tobacco Use Types [...] complication, with long-term current use of insulin ([facility]) [facility] - Kendra Galvan PAC 1 month ago Type 2 diabetes mellitus with complication, with long-term current use of insulin ([facility]) [facility] - Kendra Galvan PAC 1 month ago Type 2 diabetes mellitus with complication, with long-term current use of insulin ([facility]) [facility] - Kendra Galvan PAC 4 months ago Diarrhea, unspecified type [facility] - Kendra Galvan PAC 7 months ago Well woman exam [facility] [place] Upcoming Appointments FORESTRY EXTENSION SPECIALIST - Recent and Past Visits Recent Visits Date Type Provider Dept 01/29/21 Office Visit Kendra Chilel, PAC [facility] 01/15/21 Office Visit Juaquiniselaalicja Jana, PAC [facility] 01/08/21 Office Visit JuaquiniselaalicjaKendra, PAC [facility] 10/28/20 Telemedicine JuaquiniselaalicjaKendra, PAC [facility] 08/01/20 Office Visit [place] Kendra Hawkins, PAC [facility] 07/15/20 Office Visit JuaquiniselaalicjaKendra, PAC [facility] 01/29/20 Office Visit GetachewKendra, PAC [facility] 01/19/20 Telemedicine JuaquiniselaalicjaKendra, PAC [facility] 12/26/19 Telemedicine JuaquiniselaalicjaKendra, PAC [facility] Showing [...] 19 09/30/2021 09/30/2021 10/20/2021 12:1 6 AM TRIMMER OPERATOR THREE KNIFE Assessment Noted Time PHQ-9 Depression Total Score: 0 04/14/20 21 3:47 PM CDT documented as of this encounter Care Teams Skull Chopper Relationship Specialty Start Date End Date Kendra Chilel, IVANNA [address] [place] [address] PCP - General Physician Mortgage Loan Assistant 08/25/17 documented as of this encounter
--- OUTSIDE RECORDS SUMMARY | 2025-08-12 00:36 | XMS_ITS | Encounter Summary ---
Author Organization [facility] Address [address] [place] [address] Phone Care Team Providers Care Babbitt Spinner Name Role Phone Kendra Chilel Primary Care Provider + Reason for Visit * Reason Comments Medication Refill Encounter Details Date Type Department Care Team (Late st Contact Info) Description 05/08/2023 Refill [facility] [address] [place] [address] Kendra Chilel PAC [address] [place] [address] Medication Refill Social History Tobacco Use Types [...] documented as of this encounter Care Teams Babbitt Spinner Relationship Specialty Start Date End Date Kendra Chilel PAC [address] [place] [address] PCP - General Physician Python Architect 08/25/17 documented as of this encounter
--- OUTSIDE RECORDS SUMMARY | 2025-08-12 00:36 | XMS_ITS | Encounter Summary ---
Author Organization [facility] Address [address] [place] [address] Phone Care Team Providers Care Steel Plate Printer Name Role Phone Kendra Chilel Primary Care Provider + Reason for Visit * Reason Comments Medication Refill Encounter Details Date Type Department Care Team (Late st Contact Info) Description 01/13/2023 Refill [facility] [place] [address] [place] [address] Kendra Chilel [address] [place] [address] Medication Refill Social History Tobacco Use Types [...] documented as of this encounter Care Teams Steel Plate Printer Relationship Specialty Start Date End Date Kendra Chilel [address] [place] [address] PCP - General Physician Icer Machine Operator 08/25/17 documented as of this encounter
--- OUTSIDE RECORDS SUMMARY | 2025-08-12 00:36 | XMS_ITS | Encounter Summary ---
Author Organization [facility] Address [address] [place] [address] Phone Care Team Providers Care Circulating Process Inspector Name Role Phone Kendra Chilel Primary Care Provider + Reason for Visit * Reason Comments Medication Refill Encounter Details Date Type Department Care Team (Late st Contact Info) Description 02/12/2025 Refill [facility] [address] [place] [address] Kendra Chilel PAC [address] [place] [address] Medication Refill Social History Tobacco Use Types Packs/Day Years Used Date Smoking Tobacco: Every Day Cigarettes 1 5 Smokeless Tobacco: Never Alcohol Use Standard Drinks/Week Comments Never 0 (1 standard drink = 0.6 oz pur e alcohol) 2 X a year [facility] Utilities Answer Date Recorded In the past 12 months has [employer], gas, oil, or water [employer] threatened to shut off services in your home? No 12/12/2024 Social Connection and Isolation Panel Answer Date Recorded In a typical week, how many times do you talk on the phone with family, friends, or neighbors? Patient declined 12/13/19 How often do you get togethe r with friends or relatives? Never 12/12/2024 How often do you attend [facility] or sabianist services? Never 12/12/2024 Do you belong to any clubs o r organizations such as orthodox groups, unions, fraternal or athletic groups, or [...] Total Score - Questions 1-9 0 11/26 [facility] - Occupational Stress Questionnaire Answer Date [...] any time in the past 12 m [facility], were you homeless or living in a snf (including now)? No 12/12/2024 Education Answer Date [...] documented as of this encounter Care Teams Circulating Process Inspector Relationship Specialty Start Date End Date Kendra Chilel [address] [place] [address] PCP - General Physician Veneer Sample Maker 08/25/17 documented as of this encounter
--- NOTE | 2025-08-12 00:38 | PC.NURSE ---
PATIENT HAS RETURNED TO ROOM FROM CT. DADA JOYCE HAS BEEN NOTIFIED.
--- NOTE | 2025-08-12 00:41 | PC.NURSE ---
DR HORTON NOTIFIED OF CONTINUED PAIN TO LEFT SIDE OF ABDOMEN
[2025-08-12] MEDS: HYDROmorphone HCL INJ (*CRX) 2 MG/ML VIAL 0.5 MG IV PUSH (00:47)
--- NOTE | 2025-08-12 00:51 | PC.NURSE ---
MEDICATED FOR PAIN PER KIRSTEN. [facility] AT THE BEDSIDE DRAWING BLOOD CULTURES
--- NOTE | 2025-08-12 01:08 | PC.NURSE ---
PATIENT IS RESTING ON STRETCHER. REPORTS THAT THE DIALUDID IS HELPING WITH HER PAIN.
[2025-08-12 01:11] LABS: Hematocrit 22.8 % (35.0-49.0); Hemoglobin 7.1 g/dL (12.0-15.0); Immature Granulocyte Percent A 0.2 % (0.0-0.0); Immature Platelet Fraction Pct 3.0 % (1.0-7.0); Lymphocytes Absolute Auto 0.88 K/mm3 (1.10-4.50); Mean Corpuscular HGB Conc 31.1 g/dL (32-36); Mean Corpuscular Hemoglobin 29.1 pg (27.0-31.0); Mean Corpuscular Volume 93.4 fL (78.0-102.0); Nucleated Red Blood Cells Absolute Auto 0.00 K/mm3 (0.00-0.00); Nucleated Red Blood Cells Perc 0.0 % (0-0.0); Platelet Count Result 90 K/mm3 (150-420); Red Blood Count 2.44 M/mm3 (4.20-5.40); White Blood Count 4.9 K/mm3 (4.8-10.8)
[2025-08-12 01:29] LABS: Alanine Aminotransferase 16 U/L (6-35); Albumin Level 1.8 g/dL (3.5-5.1); Alkaline Phosphatase 32 U/L (38-126); Anion Gap 6 mmol/L (4-12); Aspartate Amino Transferase 19 U/L (14-36); Blood Urea Nitrogen 11 mg/dL (7-17); Carbon Dioxide 12 mmol/L (22-30); Chloride 127 mmol/L (98-107); Estimated CRCL calculation 159 ml/min; Estimated Glomerular Filt Rate > 60; Glucose 114 mg/dL (65-110); Osmolality Calculated 300 mOsm/kg (285-295); Sodium 145 mmol/L (137-145); Total Protein 3.6 g/dL (6.3-8.2)
[2025-08-12 01:45] LABS: Potassium < 2.0 mmol/L (3.4-5.0)
[2025-08-12 01:46] LABS: Calcium < 5.0 mg/dL (8.4-10.2); Lipase 7349 U/L (23-300)
[2025-08-12 01:48] LABS: INR 1.5; Partial Thromboplastin Time 32.5 Sec (23.9-30.70); Prothrombin Time 15.5 Seconds (9.50-12.1)
--- NOTE | 2025-08-12 01:54 | ECG_ITS ---
Test Date: 2025-08-12 02:04:26 Measurements Intervals [place] Rate: 87 P: 22 MI: 142 QRS: 46 QRSD: 85 T: 62 QT: 354 QTc: 427 Interpretive Statements SINUS RHYTHM No previous ECG available for comparison Electronically Signed On 08-13-2025 12:10:39 STORE CASHIER by Dane Vanegas M.D.
[2025-08-12] MEDS: HYDROmorphone HCL INJ (*CRX) 2 MG/ML VIAL 1 MG IV PUSH ×2 (01:58→03:55)
[2025-08-12] MEDS: PIPERACILLIN/TAZOBACTAM SOD 3.375 GM in SODIUM CHLORIDE 0.9% IV 50 ML 100 ML IVPB (01:59)
[2025-08-12] MEDS: KCL 20 MEQ/SW 100 ML 100 ML 50 MEQ IVPB (02:14)
[2025-08-12 02:34] LABS: Magnesium 0.9 mg/dL (1.6-2.3)
[2025-08-12] MEDS: CALCIUM CHLOR 1,000MG/100ML NS 1,000 MG/100 ML BAG 100 MG IVPB (02:39)
[2025-08-12] MEDS: MAGNESIUM SULF 2 GM/WATER 50ML 2 GM/50 ML BAG IVPB (02:53)
--- NOTE | 2025-08-12 03:22 | PC.NURSE ---
PATIENT IS AWARE THAT SHE WILL BE TRANSFERRED TO ICU. PATIENT CURRENTLY IS RESTING ON STRETCHER WITH HER EYES CLOSED. RESP EVEN AND UNLABORED. PATIENT HAS CALL LIGHT IN REACH
--- NOTE | 2025-08-12 03:51 | PC.NURSE ---
PATIENT REQUESTING MORE NAUSEA MEDICINE AND MORE PAIN MEDICATION. DR HORTON NOTIFIED.
--- NOTE | 2025-08-12 04:02 | PC.NURSE ---
CURRENTLY WAITING ON [facility] ARRIVAL. PATIENT DECIDED TO LAY BACK DOWN ON THE STRETCHER
--- NOTE | 2025-08-14 16:22 | PC.NURSE ---
Preliminary blood culture report; no growth in 24 hours.
[2025-08-14 16:33] LABS: Bilirubin,Total < 0.1 mg/dL (0.2-1.3)
--- NOTE | 2025-08-15 13:53 | PC.NURSE ---
preliminary blood cultures x2 reviewed. no growth in 24 hours
--- NOTE | 2025-08-16 13:20 | PC.NURSE ---
preliminary blood culture results x2: no growth in 48 hours
--- NOTE | 2025-08-19 13:13 | PC.NURSE ---
FINAL BLOOD CULTURE REPORT; NO GROWTH IN 5 DAYS.
== END 2025-08-12 04:25 | disposition short-term general hospital (02) ==
PROVIDERS: Emergency Provider Emergency Medicine; PCP Physician Assistant
DX: E83.51 Hypocalcemia (principal); E87.6 Hypokalemia; E87.20 Acidosis, unspecified; E87.8 Other disorders of electrolyte and fluid balance, not elsewhere classified; D69.6 Thrombocytopenia, unspecified; K85.10 Biliary acute pancreatitis without necrosis or infection; D64.89 Other specified anemias; E11.9 Type 2 diabetes mellitus without complications; Z79.4 Long term (current) use of insulin; E78.5 Hyperlipidemia, unspecified; I10 Essential (primary) hypertension
CPT/HCPCS: 36415; 74176; 80053; 83605; 83690; 83735; 85025; 85055; 85610; 85730; 87040; 93005; 96365; 96366; 96367; 96368; 96375; 96376; 99285; J1171; J2270; J2405; J2543; J3475; J3480; J7030